=== PATIENT | female | born 1940 | race Caucasian/White ===

== ENCOUNTER 2016-08-10 11:58 | Emergency (ER) | payer OTHER ==
[~2016-08-10] VITALS: Ht 152.4 cm; Wt 75.4 kg
[~2016-08-10 11:58] MED LIST: ACET-1311 PO; ANT25 PO; ASPEC81 PO; ATOR10TA82 PO; DTRSR4 PO; FLUO40CA8 PO; GLUC10007 PO; HYDC25 PO; LSN25 PO; MULT-506 PO; NTRGSL/4 UT; PANT40TA PO; RANI300T2 PO; SYN75 PO; VLM2 PO
[2016-08-10 12:04] VITALS: TEMP 36.7
[2016-08-10 12:11] VITALS: O2SAT 93
[2016-08-10] MEDS ORDERED: SODIUM CHLORIDE 0.9% 1000ML 1,000 ML IV SCH (12:34)
[2016-08-10 12:40] VITALS: Ht 152.4 cm; Wt 75.4 kg
[2016-08-10 12:56] LABS: BASO % 0.4 %; BASO ABS # 0.03 K/uL (0-0.2); COMPLETE YES; HEMATOCRIT 37.6 % (37-47); IG% 0.1 %; LYMPH % 33.1 %; LYMPH ABS # 2.21 K/uL (1.2-3.4); MEAN CELL VOLUME 91.7 fL (80-100); MEAN CORPUSCULAR HGB CONC 33.8 g/dl (32-36); MEAN PLATELET VOLUME 9.9 fL (7.4-10.4); MONO % 8.2 %; NEUT % 55.2 %; PLATELET COUNT 223 K/uL (130-400); WHITE BLOOD COUNT 6.68 K/uL (4.8-10.8)
--- NOTE | 2016-08-10 12:56 | DIAGNOSTIC IMAGING REPORT ---
CHEST ONE VIEW PORTABLE CLINICAL HISTORY: Stroke mental status change COMPARISON STUDY: 01/16/2010 FINDINGS: The bones soft tissues and hemidiaphragms are normal. The cardiomediastinal silhouette is normal. The lungs are clear. The pulmonary vasculature is normal. IMPRESSION: Negative chest. Electronically signed by: Cain Simmons M.D. 08/10/2016 12:55 PM Dictated Date/Time: 08/10/2016 12:54 PM
[2016-08-10 13:10] LABS: INR 0.9 (0.9-1.1); PROTHROMBIN TIME (PATIENT) 10.1 SECONDS (9.0-12.0)
[2016-08-10 13:15] LABS: BUN/CREATININE RATIO 20.9 (10-20); CALCIUM 9.1 mg/dl (8.5-10.1); CREATININE 1.2 mg/dl (0.60-1.20); POTASSIUM 4.3 mmol/L (3.5-5.1)
[2016-08-10] MEDS ORDERED: ASPI81TA28 PO (13:34)
[2016-08-10] MEDS ORDERED: DULO60CA44 PO (13:36)
[2016-08-10] MEDS ORDERED: LEVO75TA5 PO (13:39)
[2016-08-10] MEDS ORDERED: MECL1TAB42 PO (13:40)
[2016-08-10] MEDS ORDERED: TOLT2TAB9 PO (13:44)
[2016-08-10] MEDS ORDERED: DIPH-437 PO (13:46)
[2016-08-10] MEDS ORDERED: AMLO2.5T PO (13:47)
--- NOTE | 2016-08-10 13:48 | DIAGNOSTIC IMAGING REPORT ---
CT SCAN OF THE BRAIN WITHOUT IV CONTRAST CLINICAL HISTORY: Dizziness. Right arm pain. COMPARISON STUDY: No priors. TECHNIQUE: Unenhanced axial CT scan of the brain is performed from the vertex to the skull base. CT DOSE: 537.48 mGy.cm FINDINGS: Brain parenchyma: There are age-related involutional changes noting mild/moderate patchy subcortical and periventricular microangiopathic change. There is no hemorrhage, mass effect, or evidence of acute territorial ischemia by CT criteria. Martinez-white matter is preserved. No extra-axial fluid collection is seen. Ventricles, sulci, cisterns: Prominent secondary to involutional change. Intracranial vasculature: There is atherosclerotic calcification of the cavernous carotid and vertebral arteries. Calvarium: Unremarkable. Sinuses and mastoids: The visualized paranasal sinuses are clear. The mastoid air cells are well pneumatized. Orbits: The bony orbits are grossly intact. IMPRESSION: There is no hemorrhage, mass effect, or evidence of acute territorial ischemia by CT criteria. Electronically signed by: Clyde Roldan M.D. 08/10/2016 1:47 PM Dictated Date/Time: 08/10/2016 1:44 PM
[2016-08-10] MEDS ORDERED: NYSTAT/TRIAM TOP (13:49)
[2016-08-10 16:04] VITALS: BP 133/97; PULSE 87; O2SAT 96
--- NOTE | 2016-08-10 18:24 | EMERGENCY ROOM VISIT NOTE ---
History Report prepared by Chema: Yvette Starr Under the Supervision of: Dr. Enrique Hussein M.D. First contact with patient: 12:18 Chief Complaint: CHEST PAIN Stated Complaint: PAIN IN CHEST AND RIGHT ARM Nursing Triage Summary: Pt reports substernal cp that began 1 hr MASTER BREWER, dull ache. Denies sob. "The other day I had an extremely dizzy spell. On the way here the pain went to my back." Took 2 excedrin. History of Present Illness The patient is a 76 year old female who presents to the Emergency Room for a cardiac assessment. The patient had surgery on her left rotator cuff about 10 years ago. She states that for the past 6 months she has been experiencing pain in her left shoulder that radiates down her left arm and into her elbow and wrist. She notes that the pain and tingling has been worse over the past couple of weeks. The patient states that she has also noticed her left arm to be weaker than usual over the past 2 weeks. Today she went to get milk out of the refrigerator. When she tried to lift the milk, her left arm seemed to be much weaker and she had to use her other arm to help lift the milk. The same thing happened when she tried to cook pickled meat a glass. It felt heavier than it should have felt. She also has pain in the arm when lifting. The patient became concerned today and called her PCP. Her PCP advised her to come to the ED for further evaluation of her symptoms. The patient also had chest pain this morning that started around 11am. She has had intermittent chest pains for the past 4-5 years that she gets multiple times per week. Nothing seems to exacerbate her chest pains, including exertion. She states that today's chest pain felt similar to her previous chest pain, except that it radiated into the right side of her neck. The patient describes her pain as mild and achy. It is located in the center of her chest and occasionally radiates into her back. She has seen her PCP for these symptoms in the past. states that the patient had a chemical stress test about two years ago. The patient denies any personal history of heart disease. She does not get short of breath or diaphoretic with her pain. She states that she typically takes a Valium and lays down, and her pain resolves. She occasionally gets headaches with her chest pains. When queried, the patient reports that for the past couple of months she has had some trouble walking. She will occasionally walk to one side and bump into the door frame. She states that sometimes she leans to her left, while other times she leans toward the right. She denies feeling weak in her legs. She denies any numbness in her face, arms, or legs. She has not mentioned this to her PCP, because she has not seen her PCP since she started experiencing these symptoms. Her main concern today was the weakness in the left arm. She is concerned that she may have a problem with her rotator cuff surgery. She had called her doctor today to determine whether or not she should see her or Dr. Faye of orthopedics and when she mentioned the chest pain she was told to immediately go to the emergency department. Source of History: patient, spouse/significant other Onset: MASTER BREWER Position: arm (left) Symptom Intensity: mild Quality: other (weakness) Timing: intermittent Modifying Factors (Worsening): other (lifting) Associated Symptoms: + neck pain, + chest pain, + back pain, + weakness, No diaphoresis, No SOB, No numbness Review of Systems See HPI for pertinent positives & negatives. A total of 10 systems reviewed and were otherwise negative. Past Medical & Surgical Medical Problems: (1) Hypertension (2) Hypothyroid (3) Laceration Family History Heart disease Social History Smoking Status: Never Smoker Smokeless Tobacco Use: No Marital Status: Housing Status: lives with significant other Occupation Status: unemployed Current/Historical Medications Scheduled Acetaminophen/Diphenhydramine (Tylenol Pm), 1 TAB PO HS Amlodipine Besylate (Norvasc), 2.5 MG PO QPM Aspirin (Aspirin Ec), 81 MG PO QPM Atorvastatin (Lipitor), 40 MG PO QPM Diazepam (Diazepam), 2 MG PO BID Duloxetine Hcl (Cymbalta), 60 MG PO QPM Fluoxetine (Prozac), 20 MG PO QAM Glucosamine Sulfate (Glucosamine), 1,000 MG PO DAILY Levothyroxine Sodium (Levothyroxine Sodium), 37.5 MCG PO QAM Lisinopril (Lisinopril), 2.5 MG PO DAILY Multivitamin (Multivitamin), 1 TAB PO DAILY Nitroglycerin (Nitrostat), 0.4 MG UT PRN Pantoprazole (Protonix), 40 MG PO DAILY Ranitidine (Zantac), 300 MG PO BID Tolterodine Tartrate (Tolterodine Tartrate), 2 MG PO BID [Nystat/Triam], 1 APPLN TOP DAILY Scheduled PRN Acetaminophen (Tylenol), 650 MG PO Q6 PRN for Pain Meclizine Hcl (Meclizine Hcl), 1 TAB PO TID PRN for Dizziness or Vertigo Allergies Coded Allergies: Gentamicin (Verified Allergy, Unknown, UNKNOWN, 08/10/16) Penicillins (Verified Allergy, Unknown, 08/10/16) Sulfa Drugs (Verified Allergy, Unknown, 08/10/16) Physical Exam Vital Signs Date Time Temp Pulse Resp B/P (MAP) Pulse Ox O2 Delivery O2 Flow Rate FiO2 08/10/16 16:04 87 18 133/97 96 Room Air 08/10/16 14:07 76 16 129/61 95 Room Air 08/10/16 12:27 86 23 129/61 93 08/10/16 12:25 83 08/10/16 12:11 93 Room Air 08/10/16 12:04 36.7 88 18 143/73 97 Room Air Physical Exam Constitutional: Vital signs reviewed. Eyes: Pupils are equal round reactive to light. Conjunctiva are noninjected. ENT: Pharynx is clear without erythema or exudate. Mucous membranes are moist. Neck supple without meningeal signs. Respiratory: Clear to auscultation bilaterally. Breath sounds are equal bilaterally. Cardiovascular: Regular rate and rhythm. No rubs or gallops. GI: Soft, nondistended and nontender. Bowel sounds are present. Musculoskeletal: No peripheral edema. No lower extremity tenderness. Integumentary: No cyanosis. Neurological: The patient is awake and alert. Cranial nerves II-XII are intact. Motor is 5 out of 5 all extremities. Sensation is intact to light touch all extremities. Normal speech. No pronator drift. No limb ataxia. Psychiatric: Normal affect. Medical Decision & Procedures ER Provider Diagnostic Interpretation: Radiology results as stated below per my review and the radiologist's interpretation: CT SCAN OF THE BRAIN WITHOUT IV CONTRAST CLINICAL HISTORY: Dizziness. Right arm pain. COMPARISON STUDY: No priors. TECHNIQUE: Unenhanced axial CT scan of the brain is performed from the vertex to the skull base. CT DOSE: 537.48 mGy.cm FINDINGS: Brain parenchyma: There are age-related involutional changes noting mild/moderate patchy subcortical and periventricular microangiopathic change. There is no hemorrhage, mass effect, or evidence of acute territorial ischemia by CT criteria. Martinez-white matter is preserved. No extra-axial fluid collection is seen. Ventricles, sulci, cisterns: Prominent secondary to involutional change. Intracranial vasculature: There is atherosclerotic calcification of the cavernous carotid and vertebral arteries. Calvarium: Unremarkable. Sinuses and mastoids: The visualized paranasal sinuses are clear. The mastoid air cells are well pneumatized. Orbits: The bony orbits are grossly intact. IMPRESSION: There is no hemorrhage, mass effect, or evidence of acute territorial ischemia by CT criteria. Electronically signed by: Clyde Roldan M.D. 08/10/2016 1:47 PM Dictated Date/Time: 08/10/2016 1:44 PM CHEST ONE VIEW PORTABLE CLINICAL HISTORY: Stroke mental status change COMPARISON STUDY: 01/16/2010 FINDINGS: The bones soft tissues and hemidiaphragms are normal. The cardiomediastinal silhouette is normal. The lungs are clear. The pulmonary vasculature is normal. IMPRESSION: Negative chest. Electronically signed by: Cain Simmons M.D. 08/10/2016 12:55 PM Dictated Date/Time: 08/10/2016 12:54 PM Laboratory Results 08/10/16 12:45 Red Blood Count 4.10, Mean Corpuscular Volume 91.7, Mean Corpuscular Hemoglobin 31.0, Mean Corpuscular Hemoglobin Concent 33.8, Mean Platelet Volume 9.9, Neutrophils (%) (Auto) 55.2, Lymphocytes (%) (Auto) 33.1, Monocytes (%) (Auto) 8.2, Eosinophils (%) (Auto) 3.0, Basophils (%) (Auto) 0.4, Neutrophils # (Auto) 3.68, Lymphocytes # (Auto) 2.21, Monocytes # (Auto) 0.55, Eosinophils # (Auto) 0.20, Basophils # (Auto) 0.03 08/10/16 12:45 Test 08/10/16 12:45 08/10/16 15:10 White Blood Count 6.68 K/uL (4.8-10.8) Red Blood Count 4.10 M/uL (4.2-5.4) Hemoglobin 12.7 g/dL (12.0-16.0) Hematocrit 37.6 % (37-47) Mean Corpuscular Volume 91.7 fL (80-100) Mean Corpuscular Hemoglobin 31.0 pg (25-34) Mean Corpuscular Hemoglobin Concent 33.8 g/dl (32-36) Platelet Count 223 K/uL (130-400) Mean Platelet Volume 9.9 fL (7.4-10.4) Neutrophils (%) (Auto) 55.2 % Lymphocytes (%) (Auto) 33.1 % Monocytes (%) (Auto) 8.2 % Eosinophils (%) (Auto) 3.0 % Basophils (%) (Auto) 0.4 % Neutrophils # (Auto) 3.68 K/uL (1.4-6.5) Lymphocytes # (Auto) 2.21 K/uL (1.2-3.4) Monocytes # (Auto) 0.55 K/uL (0.11-0.59) Eosinophils # (Auto) 0.20 K/uL (0-0.5) Basophils # (Auto) 0.03 K/uL (0-0.2) RDW Standard Deviation 44.2 fL (36.4-46.3) RDW Coefficient of Variation 13.1 % (11.5-14.5) Immature Granulocyte % (Auto) 0.1 % Immature Granulocyte # (Auto) 0.01 K/uL (0.00-0.02) Prothrombin Time 10.1 SECONDS (9.0-12.0) Prothromb Time International Ratio 0.9 (0.9-1.1) Activated Partial Thromboplast Time 26.3 SECONDS (21.0-31.0) Partial Thromboplastin Ratio 1.0 Anion Gap 6.0 mmol/L (3-11) Est Creatinine Clear Calc Drug Dose 36.2 ml/min Estimated GFR () 50.8 Estimated GFR (Non- 43.9 BUN/Creatinine Ratio 20.9 (10-20) Calcium Level 9.1 mg/dl (8.5-10.1) Bedside Troponin I < 0.030 ng/ml (0-0.045) Laboratory results as reviewed by me. Medications Administered Medications (Trade) Dose Ordered Sig/Stacie Route Start Time Stop Time Status Last Admin Dose Admin Sodium Chloride 1,000 ml @ 50 mls/hr Q20H IV 08/10/16 12:34 08/10/16 16:47 DC 08/10/16 12:34 50 MLS/HR ECG Indication: chest pain Rate (beats per minute): 51 Rhythm: normal sinus Findings: LBBB, no ectopy Comparison ECG Date: 12/27/2015 Change: no significant change ED Course 1218: The patient was evaluated in room B2. A complete history and physical exam was performed. 1234: NSS 1000 ml @ 50 mls/hr IV 1419: I reassessed the patient and she is not having any chest pain. I updated her on the results. 1537: I reassessed the patient again. She is not having any symptoms. Her repeat troponin is 0. I discussed the results and treatment plan with the patient. I answered all pertaining questions that she had. She expressed understanding and verbalized agreement. The patient will be discharged home and was encouraged to follow-up with her PCP. Medical Decision This is a 76-year-old female presents with left arm weakness and chest pain. Differential diagnosis includes GERD, pleurisy, NE, anxiety, stroke, cervical radiculopathy, neuropathy. I did perform a limited focused review of portions of the patient's old chart on the electronic medical record. The patient has had no recent pertinent visits to this hospital. Medication Reconciliation: I attest that I have personally reviewed the patient' s current medication list. Blood Pressure Screening: Patient was found to have an elevated blood pressure and was referred to their primary doctor for recheck and further treatment. I did evaluate the patient as noted above. The patient is presenting today with increasing weakness and pain to her left arm. It has been going on for months and worse over the past 2 weeks. She called her doctor and mentioned her chest pain and so they sent her here. She states that she has had this chest pain intermittently for the past 4-5 years. She states it is unchanged other than some radiation to her right neck. The chest pain has resolved and she had no associated symptoms with it. She has had no evaluation for her chest pain by her PCP including a dobutamine stress test 2 years ago. IV access was established. The patient was placed on a continuous monitoring tech. I did order and personally review the patient's 12-lead EKG and chest x-ray as described above. Her twelve-lead EKG is unchanged. There are no acute ischemic changes. I did order and review the patient's blood work as noted in the electronic medical record. Troponin 2 is negative. I did order a CT of the head. I did review the images myself as well as the radiology report as described above. There is no evidence of CVA. I did discuss the test results with the patient. She is currently asymptomatic. She has no focal neurologic deficit on my examination. I did recommend very close follow up with her doctor for further evaluation. She was given return instructions as outlined below and discharged in good condition. Impression Primary Impression: Chronic chest pain Additional Impressions: Left arm weakness Left arm pain Scribe Attestation The scribe's documentation has been prepared under my direct and personally reviewed by me in its entirety. I confirm that the note above accurately reflects all work, treatment, procedures, and medical decision making performed by me. Departure Information Dispostion Home / Self-Care Referrals Linda Lozano D.O. (PCP) Forms HOME CARE DOCUMENTATION FORM, IMPORTANT VISIT INFORMATION Patient Instructions My [facility] Additional Instructions You have been examined and treated today on an emergency basis only. This is not a substitute for, or an effort to provide, complete comprehensive medical care. It is impossible to recognize and treat all injuries or illnesses in a single emergency department visit. It is therefore important that you follow up closely with your physician. Call as soon as possible for an appointment. Talk to your doctor about further workup including possible outpatient cardiac stress testing. Return for worsening symptoms or if you develop fever, vomiting , difficulty breathing, profuse sweating, or any other concerning symptoms. Problem Qualifiers
== END 2016-08-10 16:09 | disposition home or self-care (01) ==
LOC: C.EDB 11:59
DX: G89.29 Other chronic pain (principal); R29.898 Other symptoms and signs involving the musculoskeletal system; M79.602 Pain in left arm; I10 Essential (primary) hypertension; E03.9 Hypothyroidism, unspecified; Z79.82 Long term (current) use of aspirin; Z79.899 Other long term (current) drug therapy

== ENCOUNTER 2024-01-03 13:02 | Inpatient (IN) ==
--- NOTE | 2024-01-03 13:18 | Emergency Department Note ---
Impression & Plan Chest pain, Heart disease ED Provider Note NAME: BONITA GONZALEZ AGE: 83 SEX: F : 1940 ARRIVES VIA: Ambulance INFORMANT: Patient ED PROVIDER(S): Fredy Rodriguez DO CHIEF COMPLAINT: chest pain HPI: Patient is a 83-year-old female with a past medical history of heart disease, diabetes, hyperlipidemia, and CAD who presents to the ER for chest pain. She notes she gets chest pain intermittently but this is way worse than what it typically is. Occurred around 11-12 o'clock. Resolved with nitro. Was brought in by EMS after being seen in the office by cardiology per the patient. No dysuria, urgency, or frequency. No arm pain or jaw pain. No shortness of breath. ADDITIONAL HISTORY OBTAINED: Per HPI Chronic Medical/Social Conditions Affecting Care: Per HPI PAST MEDICAL HISTORY:See Below PAST SURGICAL HISTORY:See Below FAMILY HISTORY:See Below SOCIAL HISTORY:See Below HOME MEDICATIONS:See Below ALLERGIES:See Below VITALS:See Below PHYSICAL EXAMINATION: GENERAL: Sitting up in bed, alert, well appearing, well nourished, no distress, non-toxic EYE EXAM: normal conjunctiva. PERRL and EOM's grossly intact. OROPHARYNX: no exudate, no erythema, lips, buccal mucosa, and tongue normal and mucous membranes are moist NECK: supple, no nuchal rigidity, no adenopathy, non-tender LUNGS: Clear to auscultation. Normal chest wall mechanics HEART: no murmurs, S1 normal and S2 normal ABDOMEN: abdomen soft, non-tender, normo-active bowel sounds, no masses, no rebound or guarding. UPPER EXTREMITIES: upper extremities are grossly normal. LOWER EXTREMITIES: No pitting edema. NEURO EXAM: Normal sensorium, cranial nerves II-XII grossly intact, normal speech, no gross weakness of arms, no gross weakness of legs. MEDICAL DECISION MAKING: Patient is a 83-year-old female who presents to the ER for the below stated complaint. IV was established and blood work was obtained. Labs show no significant leukocytosis or anemia. BMP with LFTs bilirubin was unremarkable. Troponin was initially negative. Lipase was normal. Patient was sent from cardiology's office. With her history and it resolving with nitro and given aspirin prior to arrival she was discussed with the hospitalist for further evaluation management and treatment and observation overnight. Consults/Care Managements Discussions: Per [facility] Triage Nursing notes reviewed. Limited review of prior medical records performed Vital Signs: reviewed and remarkable for no significant abnormalities Differential diagnosis: Cardiac ischemia, aortic dissection, pulmonary embolism, pneumothorax, pneumonia, pericarditis, myocarditis, esophageal rupture, GERD, cholecystitis, pancreatitis, musculoskeletal, as well as other pathologies. ER treatment provided: See below Diagnostics interpreted by me include EKG and cardiac monitoring as listed below: -Cardiac Monitoring: An order was placed for continuous cardiac monitoring. The monitor shows a rate of 70 with sinus rhythm. -ECG: Sinus rhythm rate 67 Left axis No PVCs QTc 456 -Laboratory studies:Interpreted by me as stated above in MDM and shown below. Imaging studies: Xrays: As interpreted by me: Portable AP upright 1 view of the chest shows no focal infiltrate CTs show: none Procedures:none Critical Care: None Past Med/Surg History Problem List (Updated 01/03/24 @ 18:12 by Fredy Rodriguez DO) Chest pain (Acute) Bilateral rotator cuff syndrome Status post right knee replacement Status post left partial knee replacement Heart disease (Acute) High blood pressure (Acute) Diabetes Kidney disease Hypothyroid (Chronic) Hypertension (Chronic) Chronic chest pain (Acute) Left arm pain (Acute) Left arm weakness (Acute) Family History Other Diabetes Social History Smoking Status: Never smoker Hx Alcohol Use: No Hx Substance Use: No Preferred Language: Persian [employer] Required: No Beliefs That Will Affect Care: None Current Living Situation: Family Other Information That Helps Us Care for You: No Feels Safe at Home: Yes Safety Concerns: Feels Safe At This Time Assistive Devices: Denture - Upper and Glasses Allergies Allergies Allergy/AdvReac Type Severity Reaction Status Date / Time gentamicin Allergy Unknown Rash Verified 01/03/24 16:27 Macrolide Antibiotics Allergy Unknown Rash Unverified 01/03/24 16:27 Penicillins Allergy Unknown Rash Verified 01/03/24 16:27 Sulfa (Sulfonamide Allergy Unknown Rash Verified 01/03/24 16:27 Antibiotics) telithromycin Allergy Unknown Rash - All Unverified 01/03/24 16:27 Ketolides Home Meds Home Medications Medication Instructions Recorded Confirmed aspirin 81 mg tablet,delayed 81 mg PO DAILY 11/06/20 01/03/24 release (Osei Low Dose Aspirin) atorvastatin 40 mg tablet 40 mg PO QPM 11/06/20 01/03/24 calcium 600 mg (as carbonate)-vit 1 tab PO BID 11/06/20 01/03/24 D3 20 mcg (800 unit) chewable tablet (Caltrate plus D) famotidine 20 mg tablet 20 mg PO BID 11/06/20 01/03/24 fluoxetine 20 mg capsule 40 mg PO QAM 11/06/20 01/03/24 glucosamine sulf dipot 1 cap PO DAILY 11/06/20 01/03/24 chlr,msm,chond 550 mg-C 30 mg-jaye 1 mg capsule (Glucosamine Chondroitin) levothyroxine 75 mcg tablet 37.5 mcg PO QAM 11/06/20 01/03/24 lisinopril 2.5 mg tablet 2.5 mg PO DAILY 11/06/20 01/03/24 nitroglycerin 0.4 mg sublingual 0.4 mg sublingual UD PRN Chest Pain 11/06/20 01/03/24 tablet (Nitrostat) pantoprazole 40 mg tablet,delayed 40 mg PO QAM 11/06/20 01/03/24 release dicyclomine 10 mg capsule 10 mg PO QID PRN Diarrhea and/or 01/03/24 01/03/24 ABD pain metoprolol succinate 25 mg 25 mg PO DAILY 01/03/24 01/03/24 tablet,extended release 24 hr mirtazapine 15 mg tablet 0 mg PO HS 01/03/24 01/03/24 Results & Data (ED) Vital Signs Vital Signs - 24 hr 01/03/24 13:16 01/03/24 13:26 01/03/24 14:00 Temperature 37.2 C Temperature Source Oral Pulse Rate 66 63 86 Pulse Rhythm Regular Respiratory Rate 18 16 Respiratory Effort / Characteristics Non-Labored Spontaneous Respiratory Depth Normal Blood Pressure 168/71 H Blood Pressure Mean 103 Pulse Oximetry 99 96 Oxygen Delivery Method Room Air Room Air Sepsis Recent Fever Within 48 Hours No Sepsis New/Unexplained Change in Mental Status No Sepsis Action Taken by Nursing No Action Required Laboratory Data 01/03/24 13:15 01/03/24 13:15 Lab Results 01/03/24 Range/Units 13:15 WBC 8.66 (4.8-10.8) K/ul RBC 4.50 (4.20-5.40) M/uL Hgb 13.7 (12.0-16.0) g/dl Hct 41.1 (37.0-47.0) % MCV 91.3 (80.0-100.0) fL MCH 30.4 (25.0-34.0) pg MCHC 33.3 (32.0-36.0) g/dL RDW Std Deviation 44.7 (36.4-46.3) fL RDW Coeff of Mildred 13.2 (11.5-14.5) % Plt Count 243 (130-400) K/uL MPV 10.4 (9.4-12.4) fL Immature Gran % (Auto) 0.2 % Neut % (Auto) 52.8 % Lymph % (Auto) 26.0 % [place]pine % (Auto) 8.9 % Eos % (Auto) 11.4 % Baso % (Auto) 0.7 % Neut # (Auto) 4.57 (1.40-6.50) K/uL Lymph # (Auto) 2.25 (1.20-3.40) K/uL Alpine # (Auto) 0.77 H (0.11-0.59) K/uL Eos # (Auto) 0.99 H (0.00-0.50) K/uL Baso # (Auto) 0.06 (0.00-0.20) K/uL Immature Gran # (Auto) 0.02 (0.01-0.20) K/uL Sodium 140 (136-145) mmol/L Potassium 4.5 (3.5-5.1) mmol/L Chloride 106 (98-107) mmol/L Carbon Dioxide 29 (21-32) mmol/L Anion Gap 5 (3-11) BUN 14 (6-23) mg/dl Creatinine 1.07 (0.6-1.2) mg/dl Est Cr Clr Drug Dosing 36.5 ml/min eGFR 51.54 BUN/Creatinine Ratio 13.1 (10-20) Glucose 102 H (70-99(Fasting)) mg/dl Calcium 9.4 (8.6-10.3) mg/dl Total Bilirubin 0.7 (0.2-1.0) mg/dl AST 30 (13-39) U/L ALT 21 (7-52) U/L Alkaline Phosphatase 124 H (34-104) U/L Troponin I High Sens 9.3 (0-14) pg/ml Total Protein 7.1 (6.0-8.3) gm/dl Albumin 3.9 (3.4-5.0) gm/dl Globulin 3.2 (2.5-4.0) gm/dl Albumin/Globulin Ratio 1.2 (0.9-2) Lipase 15 (11-82) U/L Administered Medications Discontinued Medications Acetaminophen (Acetaminophen 325 Mg Tab) 650 mg PO NOW STA Stop: 01/03/24 15:27 Last Admin: 01/03/24 15:58 Dose: 650 mg Documented By: ES Imaging Data Radiologist's Impression: Chest X-Ray 01/03/24 13:20 XR chest 1V portable CLINICAL HISTORY: Chest pain, nonspecific COMPARISON STUDY: Chest radiograph November 06, 2020. FINDINGS: Moderate elevation of the right hemidiaphragm has mildly increased. Lungs are clear. There is no pneumothorax or pleural effusion. Cardiac size is normal. Mediastinal contours are normal. There is no evidence for pulmonary edema. IMPRESSION: No acute cardiopulmonary findings. ACT 112: Negative or not required by law. Electronically signed by: Cristino Mayes M.D. 01/03/2024 1:47 PM Discharge Plan Visit Data Chief Complaint: Chest Pain Stated Complaint: CHEST PAIN ED Provider: Fredy Rodriguez Discharge Problem: Chest pain, Heart disease Patient Disposition: Admitted As Inpatient Discharge Instructions Interventions: ED Discharge Assessment Last Done: 01/03/24 16:19 Discharge Problem: Chest pain Qualifiers: Chest pain type: unspecified Qualified Code(s): R07.9 - Chest pain, unspecified
[2024-01-03 13:37] LABS: Basophils # (auto) 0.06 K/uL (0.00-0.20); Basophils % (auto) 0.7 %; Eosinophils # (auto) 0.99 K/uL (0.00-0.50); Eosinophils % (auto) 11.4 %; Hematocrit (blood only) 41.1 % (37.0-47.0); Hemoglobin 13.7 g/dl (12.0-16.0); Immature Granulocytes # (auto) 0.02 K/uL (0.01-0.20); Immature Granulocytes % (auto) 0.2 %; Lymphocytes # (auto) 2.25 K/uL (1.20-3.40); Mean Corpuscular Hemoglobin 30.4 pg (25.0-34.0); Mean Corpuscular Hgb Conc 33.3 g/dL (32.0-36.0); Mean Corpuscular Volume 91.3 fL (80.0-100.0); Mean Platelet Volume 10.4 fL (9.4-12.4); Monocytes # (auto) 0.77 K/uL (0.11-0.59); Monocytes % (auto) 8.9 %; Neutrophils # (auto) 4.57 K/uL (1.40-6.50); Neutrophils % (auto) 52.8 %; Platelet Count 243 K/uL (130-400); RDW Coefficient of Variation 13.2 % (11.5-14.5); RDW Standard Deviation 44.7 fL (36.4-46.3); White Blood Count 8.66 K/ul (4.8-10.8)
--- NOTE | 2024-01-03 13:49 | XRay Report ---
XR chest 1V portable CLINICAL HISTORY: Chest pain, nonspecific COMPARISON STUDY: Chest radiograph November 06, 2020. FINDINGS: Moderate elevation of the right hemidiaphragm has mildly increased. Lungs are clear. There is no pneumothorax or pleural effusion. Cardiac size is normal. Mediastinal contours are normal. Ther e is no evidence for pulmonary edema. IMPRESSION: No acute cardiopulmonary findings. ACT 112: Negative or not required by law. Electronically signed by: Cristino Mayes M.D. 01/03/2024 1:47 PM
[2024-01-03 13:55] LABS: Albumin Globulin Ratio 1.2 (0.9-2); Albumin Level 3.9 gm/dl (3.4-5.0); BUN Creatinine Ratio 13.1 (10-20); Bilirubin,Total 0.7 mg/dl (0.2-1.0); Calcium 9.4 mg/dl (8.6-10.3); Creatinine Clr Calc Pharmacy 36.5 ml/min; Globulin 3.2 gm/dl (2.5-4.0); Potassium 4.5 mmol/L (3.5-5.1); Total Protein 7.1 gm/dl (6.0-8.3)
[2024-01-03 14:01] LABS: Troponin I High Sensitivity 9.3 pg/ml (0-14)
[2024-01-03] MEDS: ACETAMINOPHEN 325 MG TAB PO STA (15:58)
[2024-01-03] MEDS ORDERED: ALUMINUM/MAGNESIUM/SIMETH (MAALOX MAX) 30 ML UDC PO PRN (16:37)
--- NOTE | 2024-01-03 16:45 | History & Physical Report ---
Date of Service January 03, 2024 Assessment & Plan (1) Heart disease: (2) High blood pressure: (3) Diabetes: (4) Hypothyroid: (5) Chronic chest pain: (6) Hypertension: Plan Assessment and plan: Chest painnow resolved Rule out ACS: Initial troponin negative, EKG without acute changes Received nitroglycerin/aspirin and route with improvement Echo on 09/15/2022 showed EF of 55-60%, grade 1 diastolic dysfunction Cardiology consulted, recheck echo, n.p.o. after midnight for stress test Trend troponins, telemetry monitoring Hx hypothyroidism: Continue levothyroxine Hx DM2: -Currently not on any medications, recheck A1c, sugar within normal limits Hx CAD/HTN/HLD/TIA: Continue lisinopril/metoprolol Patient reports PCP recently stopped statin, hold for now, lipid panel ordered for a.m. Hx depression: Continue fluoxetine Hx GERD: Continue pantoprazole/Pepcid A total of 60 minutes was spent on chart review/facilitating plan of care/discussion with consultants/reviewing diagnostic data Patient is a DNR/DNI DVT prophylaxis: Lovenox History of Present Illness Chief Complaint: Chest pain Primary Care Provider: Linda Lozano DO The patient is a 83-year-old female with a past medical history of HLD, CAD, HTN, DM2, hypothyroidism, intermittent chest pain chronic on nitroglycerin, GERD who presents to the ED on 01/03/2024 with complaints of chest pain across the entirety of her chest. Patient reports going to the medicaid service coordinator office today and developing some chest pain this morning that was worse than her normal chest pain that she takes her nitroglycerin for. She denies any associated shortness of breath or nausea/vomiting. She denies any recent respiratory illness. Denies any abdominal pain. She was not hypoxic on arrival to the ER. On exam, she is now chest pain-free. She received aspirin and nitroglycerin en route to the hospital which helped relieve her pain. The patient was prescribed atorvastatin and reports her PCP recently took her off of it. Her chest x-ray was negative Her EKG was without acute changes And showed normal sinus rhythm with anterior infarctage undetermined Initial troponin was negative Labs are fairly unremarkable. The patient will be admitted for further workup and rule out ACS Allergies Allergy/AdvReac Type Severity Reaction Status Date / Time gentamicin Allergy Unknown Rash Verified 01/03/24 16:27 Macrolide Antibiotics Allergy Unknown Rash Unverified 01/03/24 16:27 Penicillins Allergy Unknown Rash Verified 01/03/24 16:27 Sulfa (Sulfonamide Allergy Unknown Rash Verified 01/03/24 16:27 Antibiotics) telithromycin Allergy Unknown Rash - All Unverified 01/03/24 16:27 Ketolides Home Medications Medication Instructions Recorded Confirmed Type aspirin 81 mg tablet,delayed 81 mg PO DAILY 11/06/20 01/03/24 History release (Soei Low Dose Aspirin) atorvastatin 40 mg tablet 40 mg PO QPM 11/06/20 01/03/24 History calcium 600 mg (as carbonate)-vit 1 tab PO BID 11/06/20 01/03/24 History D3 20 mcg (800 unit) chewable tablet (Caltrate plus D) famotidine 20 mg tablet 20 mg PO BID 11/06/20 01/03/24 History fluoxetine 20 mg capsule 40 mg PO QAM 11/06/20 01/03/24 History glucosamine sulf dipot 1 cap PO DAILY 11/06/20 01/03/24 History chlr,msm,chond 550 mg-C 30 mg-jaye 1 mg capsule (Glucosamine Chondroitin) levothyroxine 75 mcg tablet 37.5 mcg PO QAM 11/06/20 01/03/24 History lisinopril 2.5 mg tablet 2.5 mg PO DAILY 11/06/20 01/03/24 History nitroglycerin 0.4 mg sublingual 0.4 mg sublingual UD PRN Chest Pain 11/06/20 01/03/24 History tablet (Nitrostat) pantoprazole 40 mg tablet,delayed 40 mg PO QAM 11/06/20 01/03/24 History release dicyclomine 10 mg capsule 10 mg PO QID PRN Diarrhea and/or 01/03/24 01/03/24 History ABD pain metoprolol succinate 25 mg 25 mg PO DAILY 01/03/24 01/03/24 History tablet,extended release 24 hr mirtazapine 15 mg tablet 0 mg PO HS 01/03/24 01/03/24 History Past Med/Surg History Problem List Bilateral rotator cuff syndrome Status post right knee replacement Status post left partial knee replacement Heart disease High blood pressure (Acute) Diabetes Kidney disease Hypothyroid (Chronic) Hypertension (Chronic) Chronic chest pain (Acute) Left arm pain (Acute) Left arm weakness (Acute) Family History Other Diabetes Social History Smoking Status: Never smoker Preferred Language: Gambian Feels Safe at Home: Yes Review of Systems Review of Systems: All systems reviewed & are unremarkable except as noted in HPI & below Physical Exam Constitutional: WD/WN, vitals as above well developed Eyes: PERRL, conjunctivae normal, anicteric sclerae ENMT: external ear and nose normal, oropharynx normal Neck: trachea midline, no thyromegaly Respiratory: normal respiratory effort, lungs clear to auscultation Cardiovascular: RRR, no murmur, no edema (+2 nonpitting lower extremity edema) Gastrointestinal (Abdomen): normal bowel sounds, soft, nontender, no hepatosplenomegaly Musculoskeletal: no cyanosis or clubbing, extremities motor strength 5/5 Skin: no rashes, warm and dry Neurologic: PERRL, EOMI, accommodation nl, no face palsy, no dysarthria Genitourinary: no vaginal lesions, no adnexal mass Lymphatic: no cervical or axillary lymphadenopathy Results & Data Results & Data Vital Signs (Past 12 Hours) Vital Signs Temp Pulse Pulse Resp BP Pulse Ox O2 Del Method 01/03/24 16:19 67 20 157/64 H 98 Room Air 01/03/24 15:41 67 20 98 Room Air 01/03/24 14:00 86 16 96 Room Air 01/03/24 13:26 63 01/03/24 13:16 37.2 C 66 18 168/71 H 99 Room Air Diagnostic Findings Laboratory Results WBC 8.66 K/ul (4.8-10.8) 01/03/24 13:15 RBC 4.50 M/uL (4.20-5.40) 01/03/24 13:15 Hgb 13.7 g/dl (12.0-16.0) 01/03/24 13:15 Hct 41.1 % (37.0-47.0) 01/03/24 13:15 MCV 91.3 fL (80.0-100.0) 01/03/24 13:15 MCH 30.4 pg (25.0-34.0) 01/03/24 13:15 MCHC 33.3 g/dL (32.0-36.0) 01/03/24 13:15 RDW Std Deviation 44.7 fL (36.4-46.3) 01/03/24 13:15 RDW Coeff of Mildred 13.2 % (11.5-14.5) 01/03/24 13:15 Plt Count 243 K/uL (130-400) 01/03/24 13:15 MPV 10.4 fL (9.4-12.4) 01/03/24 13:15 Immature Gran % (Auto) 0.2 % 01/03/24 13:15 Neut % (Auto) 52.8 % 01/03/24 13:15 Lymph % (Auto) 26.0 % 01/03/24 13:15 [place] % (Auto) 8.9 % 01/03/24 13:15 Eos % (Auto) 11.4 % 01/03/24 13:15 Baso % (Auto) 0.7 % 01/03/24 13:15 Neut # (Auto) 4.57 K/uL (1.40-6.50) 01/03/24 13:15 Lymph # (Auto) 2.25 K/uL (1.20-3.40) 01/03/24 13:15 [place] # (Auto) 0.77 K/uL (0.11-0.59) H 01/03/24 13:15 Eos # (Auto) 0.99 K/uL (0.00-0.50) H 01/03/24 13:15 Baso # (Auto) 0.06 K/uL (0.00-0.20) 01/03/24 13:15 Immature Gran # (Auto) 0.02 K/uL (0.01-0.20) 01/03/24 13:15 Sodium 140 mmol/L (136-145) 01/03/24 13:15 Potassium 4.5 mmol/L (3.5-5.1) 01/03/24 13:15 Chloride 106 mmol/L (98-107) 01/03/24 13:15 Carbon Dioxide 29 mmol/L (21-32) 01/03/24 13:15 Anion Gap 5 (3-11) 01/03/24 13:15 BUN 14 mg/dl (6-23) 01/03/24 13:15 Creatinine 1.07 mg/dl (0.6-1.2) 01/03/24 13:15 Est Cr Clr Drug Dosing 36.5 ml/min 01/03/24 13:15 eGFR 51.54 01/03/24 13:15 BUN/Creatinine Ratio 13.1 (10-20) 01/03/24 13:15 Glucose 102 mg/dl (70-99(Fasting)) H 01/03/24 13:15 Calcium 9.4 mg/dl (8.6-10.3) 01/03/24 13:15 Total Bilirubin 0.7 mg/dl (0.2-1.0) 01/03/24 13:15 AST 30 U/L (13-39) 01/03/24 13:15 ALT 21 U/L (7-52) 01/03/24 13:15 Alkaline Phosphatase 124 U/L (34-104) H 01/03/24 13:15 Troponin I High Sens 9.3 pg/ml (0-14) 01/03/24 13:15 Total Protein 7.1 gm/dl (6.0-8.3) 01/03/24 13:15 Albumin 3.9 gm/dl (3.4-5.0) 01/03/24 13:15 Globulin 3.2 gm/dl (2.5-4.0) 01/03/24 13:15 Albumin/Globulin Ratio 1.2 (0.9-2) 01/03/24 13:15 Lipase 15 U/L (11-82) 01/03/24 13:15 Impressions Chest X-Ray 01/03/24 13:20 XR chest 1V portable CLINICAL HISTORY: Chest pain, nonspecific COMPARISON STUDY: Chest radiograph November 06, 2020. FINDINGS: Moderate elevation of the right hemidiaphragm has mildly increased. Lungs are clear. There is no pneumothorax or pleural effusion. Cardiac size is normal. Mediastinal contours are normal. There is no evidence for pulmonary edema. IMPRESSION: No acute cardiopulmonary findings. ACT 112: Negative or not required by law. Electronically signed by: Cristino Mayes M.D. 01/03/2024 1:47 PM Supervising Physician Co-Signing Physician Notes Patient is an 83-year-old female with history of hypertension, hyperlipidemia, coronary artery disease, hypothyroidism, GERD and other medical problems presents with history of ongoing intermittent chest pain for many days. She describes chest pain to be retrosternal, pressure/heartburn like sensation which started at rest. She was evaluated by her medicaid service coordinator outpatient and was recommended to go to ED for further evaluation. Currently chest pain-free after receiving nitroglycerin and aspirin. Patient had some headache which improved with Tylenol as well. Denies any nausea, vomiting, shortness of breath, dizziness, cough, fever, chills. She was recently discontinued on Lipitor by her PCP due to unclear reason. Please review HPI for complete details of presentation. I personally reviewed blood work and imaging studies and EKG. Initial troponin negative. Patient received aspirin, nitroglycerin en route to the hospital. Physical Exam: Vitals signs as noted above General Appearance: Obese, no apparent distress Head: normocephalic, Atraumatic Eyes: normal inspection, EOMI Neck: supple, Trachea midline Respiratory/Chest: Decreased breath sounds, CTA, No accessory muscle use Cardiovascular: S1, S2, No murmur Abdomen/GI:Soft, Non tender, Bowel sounds present Extremities/Musculoskeletal:normal inspection, no edema Neurologic/Psych:AAOX3, grossly no focal neurological deficits Skin: normal color, warm Chest pain rule out ACS DD: GERD Initial troponin negative. Will check resting echo, lipid panel, A1c, trend troponins, check TSH N.p.o. after midnight for stress test tomorrow Cardiology consulted Continue aspirin, Lipitor Nitroglycerin as needed On Protonix, Pepcid for GERD. Added Maalox as needed If stress test negative, patient would benefit from getting EGD eventually I personally interviewed and examined at bedside. Patient's care is coordinated with Myra Lynch PA-C. I have reviewed the advanced practitioner's documentation, and I agree with plan of care. Please refer to the documentation above for details of patient's presentation and for discussion of other issues. I spent a total [id number] coordinating, documenting, and providing care for this patient excluding time spent in the performance of separately billed services. (2) High blood pressure Hypertension type: unspecified Qualified Code(s): I10 - Essential (primary) hypertension
[2024-01-03] MEDS ORDERED: ACETAMINOPHEN 325 MG TAB PO PRN (17:01)
[2024-01-03 17:22] VITALS: RESP 18
[2024-01-03] MEDS: CALCIUM 600MG + VIT D 400 IU TAB PO SCH (18:13)
[2024-01-03] MEDS: FAMOTIDINE 20 MG TAB PO SCH (20:24)
[2024-01-03] MEDS: MIRTAZAPINE TAB 15 MG TAB PO SCH (20:25)
--- NOTE | 2024-01-03 21:24 | Electrocardiogram Report ---
Test Reason : Blood Pressure : */* mmHG Vent. Rate : 67 BPM Atrial Rate : 67 BPM P-R Int : 184 ms QRS Dur : 120 ms QT Int : 432 ms P-R-T Axes : 41 -40 70 degrees QTcB Int : 456 ms Normal sinus rhythm Left axis deviation Minimal voltage criteria for LVH, may be normal variant Left bundle branch block Abnormal ECG When compared with ECG of 06-Nov-2020 16:48, No significant change Confirmed by Gerber Patton ([id number]) on 01/03/2024 9:24:43 PM Referred By: Confirmed By: Gerber Patton
--- OUTSIDE RECORDS SUMMARY | 2024-01-03 23:25 | External Medical Summary | Summary of Care ---
Author Name Unknown Organization [facility] Address [address] [place] [address] Phone [phone] Care Team Providers Care Oceanography Teacher Name Role Phone Linda Lozano DO Primary Care Provider Encounter Details Date Type Department Care Team (Late st Contact Info) Description 12/09/2023 Telephone [facility] [address] [place] [address] Linda Lozano DO [address] [place] [address] Allergies Active Allergy Reactions Criticality Noted Date Comments Gentamicin Sulfate 06/12/2004 eyes sore/red Penicillins 11/26/1999 Sulfa Antibiotics 11/26/1999 documented as of this encounter (statuses as of 12/10/2023) Medications Medication Sig Dispensed Refills Start Date End Date Status ASPIRIN 81 MG PO TABSIndications:HTN, goal below 130/80 Take 1 Tablet by mouth in the morning. 0 0 06/27/2009 Active GLUCOSAMINE CHONDROITIN COMPLX 500-400 MG PO TABS Take 1 Tablet by mouth in the morning. 30 0 06/27/2009 Active CALTRATE 600+D PLUS 600-400 MG-UNIT PO TABSIndications:Gene ralized osteoarthritis 1 TABLET TWICE DAILY WITH FOOD 06/26/2010 Active LORATADINE 10 MG PO TABSIndications:Marlo rgic rhinitis One pill by mouth once a day as needed for allergies 90 Tab 3 07/03/2011 Active [place]-3 Krill Oil 500 MG CAPS Take 1 Cap by mouth daily. 10/04/2013 Active ONETOUCH CARLOS EDISONMELVA 33G MISCIndications:Type 2 diabetes mellitus with hemoglobin A1c goal of less than 7.0% ([facility]) USE UP TO FOUR TIMES A DAY DIRECTED E11.9 200 Each 2 07/07/2018 Active OneTouch Ultra In Vitro Strip (Glucose Blood)Indications:DM type 2, goal: symptom mgmt ([facility]) USE STRIP TO CHECK GLUCOSE 1 time DAILY. Dx Code: E11.9 100 Strip 3 03/21/2020 Active Nitroglycerin 0.4 MG Sublingual Tablet Sublingual (Nitrostat)Indicatio ns:Angina pectoris ([facility]) one tab under tongue as needed for chest pain maximum 3 doses 25 Tab 3 11/08/2020 Active Probiotic Acidophilus BioBeads Oral Capsule Take by mouth 1 Capsule in the morning. Active Famotidine 20 MG Oral Tablet (Pepcid)Indications: GERD (gastroesophageal reflux disease) Take by mouth 1 Tablet in the morning AND 1 Tablet before bedtime. 180 Tablet 1 07/01/2021 Active Mirtazapine 15 MG Oral Tablet (Remeron) Take 1 Tablet by mouth at bedtime. 90 Tablet 3 11/09/2022 Active Atorvastatin Calcium 40 MG Oral Tablet (Lipitor)Indications :Dyslipidemia, goal LDL below 100 Take 1 Tablet by mouth daily. 90 Tablet 3 03/08/2023 Active Metoprolol Succinate ER 25 MG Oral Tablet Extended Release 24 Hour (Toprol XL)Indications:SVT (supraventricular tachycardia) ([facility]) Take 1 Tablet by mouth in the morning. 90 Tablet 3 05/14/2023 Active FLUoxetine HCl 20 MG Oral Capsule (PROzac)Indications: Depression with anxiety Take 2 Capsules by mouth in the morning. 180 Capsule 3 10/20/2023 Active Levothyroxine Sodium 75 MCG Oral Tablet (Levoxyl)Indications :Acquired hypothyroidism TAKE 1/2 (ONE-HALF) TABLET BY MOUTH IN THE MORNING AT LEAST 30 MINUTES PRIOR TO BREAKFAST OR OTHER MEDICATIONS 45 Tablet 10/20/2023 Active Pantoprazole Sodium 40 MG Oral Tablet Delayed Release (Protonix)Indication s:Gastroesophageal reflux disease, unspecified whether esophagitis present TAKE 1 TABLET BY MOUTH ONCE DAILY IN THE MORNING 90 Tablet 3 10/20/2023 Active documented as of this encounter (statuses as of 12/10/2023) Active Problems Problem Noted Date Diagnosed Date Type 2 diabetes mellitus wit h stage 3a chronic kidney disease, without long-term current use of insulin 05/31/2023 Hypertensive kidney disease with stage 3a chronic kidney disease 05/31/2023 SVT (supraventricular tachycardia) 05/31/2023 Hypothyroidism due to acquired atrophy of thyroi d 05/31/2023 Major depressive disorder, single episode, mild 06/03/2022 Diabetes mellitus with stage 3 chronic kidney di sease 12/06/2017 Hypertensive kidney disease with chronic kidney disease stage III 12/06/2017 Raynaud's disease 12/31/2014 DM type 2, goal: symptom mgmt 06/11/2014 HTN, goal below 140/90 02/20/2014 Kidney disease, chronic, stage III (GFR 30-59 ml /min) 02/20/2014 LBBB (left bundle branch block) 01/02/2014 Hypothyroidism 01/28/2007 Internal hemorrhoids 09/17/2004 Major depressive disorder 03/06/2000 Overview: ICD-10 update of inactive term Mixed Dyslipidemia documented as of this encounter (statuses as of 12/10/2023) Resolved Problems Problem Noted Date Diagnosed Date Resolved Date Angina pectoris 06/03/2022 05/31/2023 Encounter for examination fo r normal comparison and control in clinical research program 10/04/2014 10/11/2014 Overview: Diagnosis changed due to Research Module. Go to Snapshot for study details. Encounter for examination fo r normal comparison and control in clinical research program 10/04/2014 10/09/2014 Overview: Diagnosis changed due to Research Module. Go to Snapshot for study details. MARTINEZ (headache) 06/25/2014 06/04/2017 Chest pain 01/02/2014 12/04/2016 DM type 2, age 6-12 yrs, goal A1C below 8 07/31/2013 06/11/2014 Type 2 diabetes mellitus wit h hemoglobin A1c goal of less than 7.0% 04/24/2013 07/31/2013 Overview: ICD-10 update of inactive term Pre-diabetes 01/16/2013 04/24/2013 Angina pectoris 12/27/2009 06/04/2017 Vertigo 08/08/2009 12/04/2016 Obesity, Class II, BMI 35-39 .9, isolated (see actual BMI) 07/29/2009 08/17/2018 Overview: Per Obesity Protocol, #19 Dyslipidemia, goal LDL below 100 01/28/2009 06/27/2009 Overview: Per Lipid Taxonomy. Allergic rhinitis 10/16/2008 12/04/2016 CEREBROVASCULAR DZ, POST-STROKE 09/13/2008 06/04/2017 Overview: Modified per CVA protocol #8. ct 3/05-- old lacunar infarct CEREBROVASCULAR DZ, POST-STROKE 05/29/2008 09/13/2008 Overview: Modified per CVA protocol #8. ct 3/05-- old lacunar infarct SPASTIC COLON 11/22/2007 12/04/2016 Diarrhea 11/22/2007 12/04/2016 HYPERGLYCEMIA 05/23/2007 12/04/2016 COMPLEX CYST OF THYROID 01/28/200705/17 Generalized osteoarthritis 01/28/2007 1 Fever and other physiologic disturbances of temperature regulation 01/04/2007 01/28/2007 Overview: ICD-10 update of inactive term Diverticulosis of colon 09/17/200405/17 ADVANCE DIRECTIVE INFORMATION 08/14/2004 12/04/2016 Overview: No, Advance Directive brochure given to patient at prior appointment. Cerebrovascular event, ill-d efined, within last 8 weeks 05/20/2004 05/31/2008 Overview: Modified per CVA protocol #8 HTN, goal below 140/90 12/05/200306/27 Vasculitis 12/06/2001 12/05/2003 ANGINA PECTORIS NEC-NOS 03/06/200011/16 Heartburn 03/06/2000 01/28/2007 HYPERLIPIDEMIA NEC-NOS 03/06/200001/28 Overview: Per Lipid Taxonomy. Menopause 03/06/2000 12/04/2016 EXT ASTHMA W-O STAT ASTH HTN, goal below 130/80 02/20 Cerebrovascular event, ill-d efined, within last 8 weeks 06/04/2017 Overview: ct 04/19-- old lacunar infarct documented as of this encounter (statuses as of 12/10/2023) Immunizations Name Administration Dates Next Due COVID-19 mRNA, LNP-s, No Pre serve, 2-Dose Series (Moderna) 05/15/2020,04/10/2020 Pneumococcal Conjugate Vacc, 13 Valent (Prevnar) 07/11/2015 Pneumococcal Conjugate Vacci ne, 7 Valent 12/05/2003 Pneumococcal Polysaccharide PPV23 (Pneumovax) 06/27/2009 Season Influenza, Quad, PF, Adjuvanted, 65+ Yrs, IM (FLUAD) 11/11/2022,10/19/2019 Seasonal Influenza Vac., MDV , IM, 0.5 mL (Fluzone) 10/18/2014,11/06/2013,12/23/2012,11/18,11/07/2010,12/02/2009,11/22/2008 ,02/01/2008,12/03/2006,12/18/2005,11/04/2005,11/27/2004,12/05/2003 Seasonal Influenza, High Dos e, Trivalent, PF, IM (Fluzone HD) 12/08/2023 Seasonal Influenza, PF, 6 M & above, IM , (FluLaval or Fluzone) 11/10/2018,11/19/2017 Seasonal Influenza, Quadriva lent Hd (Fluzone Hd) 04/02/2022 Seasonal Influenza, Quadriva lent, No Preserve, IM 10/28/2016,11/11/2015 TD - Tetanus/Diptheria (ADULT) 06/12/2004 TDAP (age 10 and older)(Boostrix) 12/12/2014 Zoster Vaccine Recombinant (Shingrix) 02/27/2023 ,11/11/2022 documented as of this encounter Social History Tobacco Use Types Packs/Day Years Used Date Smoking Tobacco: Never Smokeless Tobacco: Never Alcohol Use Standard Drinks/Week Comments No 0 (1 standard drink = 0.6 oz pur e alcohol) rare PHQ-2 Answer Date Recorded PHQ Adult Total Score 12 01/01/2021 Sex and Gender Information Value Date Recorded Sex Assigned at Female 08/16/2018 10:45 AM EDT Gender Identity Female 08/16/2018 10:45 AM EDT Sexual Orientation Straight 12/08/2023 9: 57 AM EDT Job Start Date Occupation Industry Not on file Not on file Not on file documented as of this encounter Miscellaneous Notes * Telephone Encounter - Manuela Alvarez LPN - 12/10/2023 2:44 PM EDT Spoke to patient and verbalized understanding. She did say she is having more heartburn and indigestion she is unsure of what medications she is taking for this prior. She said she will reach out again if this is persistent. She is adding metamucil to help with her diarrhea and she did not get her CXR due to you not hearing anything when she was in. * Telephone Encounter - Linda Lozano DO - 12/09/2023 2:10 PM EDT Results for orders placed or performed in visit on 12/08/23 CBC Result Value Ref Range WBC 9.16 4.00 - 10.80 K/uL RBC 4.53 3.85 - 5.15 M/uL HGB 14.0 12.0 - 15.3 g/dL HCT 44.4 36.0 - 45.2 % MCV 98.0 81.5 - 97.5 fL MCH 30.9 27.0 - 34.0 pg MCHC 31.5 32.0 - 36.0 g/dL RDW 13.2 11.5 - 15.5 % PLT 263 140 - 400 K/uL MPV 11.5 6.6 - 11.1 fL nRBCs 0 <=0 /100 WBCs IRON SCREEN, INCLUDING TIBC Result Value Ref Range Iron 96 33 - 151 ug/dL Iron Binding Capacity 258 250 - 425 ug/dL Transferrin Saturation Percent 37 15 - 55 % TSH WITH FREE T4 IF INDICATED Result Value Ref Range TSH 2.56 0.27 - 4.20 uIU/mL HEMOGLOBIN A1C Result Value Ref Range Hemoglobin A1C 6.1 (H) 4.0 - 5.6 % Estimated Average Glucose 128 (H) <126 mg/dL *Note: Due to a large number of results and/or encounters for the requested time period, some results have not been displayed. A complete set of results can be found in Results Review. Her blood counts and thyroid along with diabetes is all stable. No changes need to be made documented in this encounter Plan of Treatment Upcoming Encounters Date Type Department Care Team (Late st Contact Info) Description 01/03/2024 2:30 PM EST Office Visit Cardiology, [facility] [address] [facility] [place] [address] Janis Castro PA-C [address] [place] [address] Dhiraj [place] [id number] 06/21/2024 11:30 AM EDT Office Visit [facility] [address] [place] [phone] Linda Lozano DO [address] [place] [address] 09/29/2024 2:00 PM EDT Office Visit Nephrology, [facility] [address] [place] [address] Shawna Castro MD [address] [place] [address] Health Maintenance Due Date Last Done Comments DXA Scan 07/20/2018 07/21/2011, 06/2011, 09/05/2007, Additional history exists Adult Wellness Visit 08/30/2020 08/31/2019 COVID-19 Vaccine (2023-2 5 season) 2023 05/15/2020, 04/10/2020 Depression Monitoring 10/04/2024 10/05/2023 TSH 12/07/2024 12/08/2023, 06/0 06/2022, 10/13/2020, Additional history exists Zoster Vaccines Completed 02/27/2023, 11/11/2022 Influenza Vaccine (FLU shot) Completed , 11/11/2022, 04/02/2022, Additional history exists documented as of this encounter Medical Devices Implanted Type Area Prefitter Device Identifier Shelf Expiration Date Model / Serial / Lot Lens Intraoc 23.0 - [id number] - [id number] Implanted:Qty: 1 on 01/14/2021 by Samy Warner MD at OR [facility] Right: Eye [employer] 09/14/2025 [id number] / [id number] / [id number] Lens Intraoc 23.0 - [id number] - [id number] Implanted:Qty: 1 on 01/28/2021 by Samy Warner MD at OR [facility] Left: Eye [employer] 11/14/2025 [id number] / [id number] / Percutaneous Extension 2201bun - [id number] - [id number] Implanted:Qty: 1 on 11/27/2022 by Maximus De La Rosa MD at OR [facility] N/A: Back [employer] 03/03/2025 [id number] / [id number] / Kit Tined Lead - [id number] - [id number] Implanted:Qty: 1 on 11/27/2022 by Maximus De La Rosa MD at OR [facility] N/A: Back [employer] 06/08/2025 1201 / [id number] / Neurostim Non Rechargeable - [id number] - [id number] Implanted:Qty: 1 on 12/04/2022 by Maximus De La Rosa MD at OR [facility] Right: Back [employer] 04/14/2023 4101 / [id number] / documented as of this encounter Advance Directives Documents on File Type Date Recorded 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 Question Answer Comments Discussion of Advance Directives occurred with: Patient * Full Code Date Activated Date Inactivated Comments 11/27/2022 1:03 PM 11/27/2022 6:18 PM This order reflects the patients wishes and were consensually agreed upon. Question Answer Comments Discussion of Advance Directives occurred with: Patient Care Teams Oceanography Teacher Relationship Specialty Start Date End Date Linda Lozano DO [address] [place] [address] PCP - General Family Medicine 03/23/22 documented as of this encounter
--- OUTSIDE RECORDS SUMMARY | 2024-01-03 23:25 | External Medical Summary ---
Author Name Unknown Address Unknown Organization [id number][place] [place] [address] [place] [address] Laboratory Report Ordering Provider Test Date Status TERESA DRISCOLL 11/23/2023 08:45:13 Final Normal: <30 mg/g creatinine< br/>High: 30-300 mg/g creatinine
Very High: >300 mg/g creatinine
Nephrotic: >2200 mg/g creatinine Observation Date Value Abnormality Reference (Units ) Status Albumin, Urine 11/23/2023 08:45:13 <1.20 (mg/dL) Final Creatinine, Urine 11/23/2023 08:45:13 49 (mg/dL) Final Albumin/Creatinine [Mass Ratio] in Urine 11/23/2023 08:45:13 <24 <30 (mg/g Creat) Final [place] [facility] [place] [address] [place] [address]
--- OUTSIDE RECORDS SUMMARY | 2024-01-03 23:25 | External Medical Summary | Summary of Care ---
Author Name Unknown Organization [facility] Address [address] [place] [address] Phone [phone] Care Team Providers [employer] Specialist Name Role Phone Linda Lozano DO Primary Care Provider Reason for Visit * Reason Onset Date Comments Follow Up Pt here today fo r routine check up Pt states she does have a cough that is in her chest. Medication Administration 12/08/2023 Flu an d/or Pneumo Inj Encounter Details Date Type Department Care Team (Late st Contact Info) Description 12/08/2023 10:10 AM EDT Office Visit [facility] [address] [place] [address] Linda Lozano, [address] [place] [address] DM type 2, goal: symptom mgmt (HCC)*; Risk and functional assessment; NIELSEN (dyspnea on exertion); Hypotension, unspecified hypotension type; Acquired hypothyroidism; Need for prophylactic vaccination and inoculation against influenza; Bradycardia Allergies Active Allergy Reactions Criticality Noted Date Comments Gentamicin Sulfate 06/12/2004 eyes sore/red Penicillins 11/26/1999 Sulfa Antibiotics 11/26/1999 documented as of this encounter (statuses as of 12/08/2023) Medications Medication Sig Dispensed Refills Start Date End Date Status ASPIRIN 81 MG PO TABSIndications:HTN , goal below 130/80 Take 1 Tablet by mouth in the morning. 0 0 06/27/2009 Active GLUCOSAMINE CHONDROITIN COMPLX 500-400 MG PO TABS Take 1 Tablet by mouth in the morning. 30 0 06/27/2009 Active CALTRATE 600+D PLUS 600-400 MG-UNIT PO TABSIndications:Gen eralized osteoarthritis 1 TABLET TWICE DAILY WITH FOOD 06/26/2010 Active LORATADINE 10 MG PO TABSIndications:All ergic rhinitis One pill by mouth once a day as needed for allergies 90 Tab 3 07/03/2011 Active [place]-3 Krill Oil 500 MG CAPS Take 1 Cap by mouth daily. 10/04/2013 Active ONETOUCH DELICA LANCETS 33G MISCIndications:Typ e 2 diabetes mellitus with hemoglobin A1c goal of less than 7.0% (FORMER[facility]) USE UP TO FOUR TIMES A DAY DIRECTED E11.9 200 Each 2 07/07/2018 Active OneTouch Ultra In Vitro Strip (Glucose Blood)Indications:D M type 2, goal: symptom mgmt ([facility]) USE STRIP TO CHECK GLUCOSE 1 time DAILY. Dx Code: E11.9 100 Strip 3 03/21/2020 Active Nitroglycerin 0.4 MG Sublingual Tablet Sublingual (Nitrostat)Indicati ons:Angina pectoris ([facility]) one tab under tongue as needed for chest pain maximum 3 doses 25 Tab 3 11/08/2020 Active Probiotic Acidophilus BioBeads Oral Capsule Take by mouth 1 Capsule in the morning. Active Famotidine 20 MG Oral Tablet (Pepcid)Indications :GERD (gastroesophageal reflux disease) Take by mouth 1 Tablet in the morning AND 1 Tablet before bedtime. 180 Tablet 1 07/01/2021 Active Mirtazapine 15 MG Oral Tablet (Remeron) Take 1 Tablet by mouth at bedtime. 90 Tablet 3 11/09/2022 Active Atorvastatin Calcium 40 MG Oral Tablet (Lipitor)Indication s:Dyslipidemia, goal LDL below 100 Take 1 Tablet by mouth daily. 90 Tablet 3 03/08/2023 Active Metoprolol Succinate ER 25 MG Oral Tablet Extended Release 24 Hour (Toprol XL)Indications:SVT (supraventricular tachycardia) ([facility]) Take 1 Tablet by mouth in the morning. 90 Tablet 3 05/14/2023 Active FLUoxetine HCl 20 MG Oral Capsule (PROzac)Indications :Depression with anxiety Take 2 Capsules by mouth in the morning. 180 Capsule 3 10/20/2023 Active Levothyroxine Sodium 75 MCG Oral Tablet (Levoxyl)Indication s:Acquired hypothyroidism TAKE 1/2 (ONE-HALF) TABLET BY MOUTH IN THE MORNING AT LEAST 30 MINUTES PRIOR TO BREAKFAST OR OTHER MEDICATIONS 45 Tablet 10/20/2023 Active Pantoprazole Sodium 40 MG Oral Tablet Delayed Release (Protonix)Indicatio ns:Gastroesophageal reflux disease, unspecified whether esophagitis present TAKE 1 TABLET BY MOUTH ONCE DAILY IN THE MORNING 90 Tablet 3 10/20/2023 Active Dicyclomine HCl 10 MG Oral Capsule (Bentyl) Take 1 Capsule by mouth 4 times a day as needed for Diarrhea. For abdominal pain 120 Capsule 11 05/31/2023 12/08/19 Discontinu ed(Patient preference /discontin uation) documented as of this encounter (statuses as of 12/08/2023) Active Problems Problem Noted Date Diagnosed Date [...] as of this encounter (statuses as of 12/08/2023) Resolved Problems Problem Noted Date Diagnosed Date [...] as of this encounter (statuses as of 12/08/2023) Immunizations Name Administration Dates Next Due COVID-19 mRNA, LNP-s, No Pre serve, 2-Dose Series (Moderna) 05/15/2020,04/10/2020 Pneumococcal Conjugate Vacc, 13 Valent (Prevnar) 07/11/2015 Pneumococcal Polysaccharide PPV23 (Pneumovax) 06/27/2009 Season Influenza, Quad, PF, Adjuvanted, 65+ Yrs, IM (FLUAD) 11/11/2022,10/19/2019 Seasonal Influenza Vac., MDV , IM, 0.5 mL (Fluzone) 10/18/2014,11/06/2013,12/23/2012,11/18,11/07/2010,12/02/2009,11/22/2008 ,02/01/2008,12/03/2006,12/18/2005,11/04/2005 Seasonal Influenza, High Dos e, Trivalent, PF, IM (Fluzone HD) 12/08/2023 Seasonal Influenza, PF, 6 M & above, IM , (FluLaval or Fluzone) 11/10/2018,11/19/2017 Seasonal Influenza, Quadriva lent Hd (Fluzone Hd) 04/02/2022 Seasonal Influenza, Quadriva lent, No Preserve, IM 10/28/2016,11/11/2015 TDAP (age 10 and older)(Boostrix) 12/12/2014 Zoster [...] 10:45 AM EDT Sexual Orientation Straight 12/08/2023 9 :57 AM EDT Job Start Date Occupation Industry Not on file Not on file Not on file documented as of this encounter Last Filed Vital Signs Vital Sign Reading Time Taken Comments Blood Pressure 108/62 12/08/2023 9:53 AM EDT Pulse 68 12/08/2023 9:53 AM EDT Temperature 36.4 C (97.6 F) 12/08/2023 9:53 AM E DT Respiratory Rate 18 12/08/2023 9:53 AM EDT Oxygen Saturation 94% 12/08/2023 9:53 AM EDT Inhaled Oxygen Concentration - - Weight 77 kg (169 lb 11.2 oz) 12/08/2023 9:53 AM EDT Height - - Body Mass Index 34.28 10/05/2023 8:19 AM EDT documented in this encounter Patient Instructions * Patient Instructions* Brook Russell LPN - 12/08/2023 9:57 AM EDT Osteoporosis: Screening for Bone Loss The strength of bones is measured by their density (thickness). High bone density means bones are less likely to fracture. If you are at risk for bone loss, your healthcare provider may refer you forbone density testing. Bone Density Testing Bone density testing is safe, quick, easy, and painless. Testing can detect osteoporosis before a fracture happens. It can also predict the risk of future fractures. And testing can measure the response to treatment. There are two types of tests that you may have: Peripheral tests are used for screening. They measure density in the finger, wrist, knee, pickett, or heel. A common peripheral test is the quantitative ultrasound (QUS). Central tests are used for diagnosis. They measure density in the hip or spine. The main centraltest is the dual energy x-ray absorptiometry (DXA). The DXA is the standard bone density test. Who Should Be Tested? All postmenopausal women under age 65, with one or more risk factors in addition to menopause. All women age 65 and older. Postmenopausal women with fractures. Women who are thinking about treatment for osteoporosis. Women who have been on hormone therapy for a long time. Men or women with certain medical conditions or who are taking certain medications (such as glucocorticoids or prednisone) for a long period. Common Testing Sites Any bone can fracture, but with osteoporosis some bones fracture more easily. These include bones in the spine, wrist, shoulder, and hip. Thats why bone density testing may be done at one or more of these sites. Understanding Your Results The results of your test may seem confusing at first. Dont be afraid to ask your provider to explain. Your bone mineral density (BMD) describes the thickness of the bone that was scanned. Your healthcare provider will compare your BMD with the BMD of young, healthy bone. The result is called a T-score. Bones remodel at different rates. So, a healthy T-score in the wrist doesnt mean the spine is also healthy. Thats why more than one site may be scanned. [id number] [address]. All rights reserved. This information is not intended as a substitute for professional medical care. Always follow your healthcare professional's instructions Patient Instructions - Fall Prevention (This education is for all patients over 65 regardless of symptoms) Remember to take your current medications as prescribed. In order to prevent falls, you are encouraged to: Exercise Utilize assistive/adaptive devices Avoid multifocal lenses when walking Avoid hazards in home Maintain a regular toileting schedule Any questions please contact our office. Preventing Falls in the Home (This education is for all patients over 65 regardless of symptoms) As you get older, falls are more likely. Thats because your reaction time slows. Your muscles and joints may also get stiffer, making them less flexible. Illness, medications, and vision changes can also affect your balance. A fall could leave you unable to live on your own. To make your home safer, follow these tips: Floors Put nonskid pads under area rugs Remove throw rugs Replace worn floor coverings Tack carpets firmly to each step on carpeted stairs. Put nonskid strips on the edges of uncarpeted stairs Keep floors and stairs free of clutter and cords Arrange furniture so there are clear pathways Clean up any spills right away Bathrooms Install grab bars in the tub or shower Apply nonskid strips or put a nonskid rubber mat in the tub or shower Sit on a bath chair to bathe Use bathmats with nonskid backing Lighting Keep a flashlight in each room Put a nightlight along the pathway between the bedroom and the bathroom [employer] Patient Education Copyright 2008 - 2010 [employer] except where otherwise noted Preventing Falls: Exercises to Improve Balance, Flexibility, Strength, and Staying Power (This education is for all patients over 65 regardless of symptoms) Certain types of exercises may help make you less likely to fall. Try the ones below. Or do other exercises that your healthcare provider suggests. Depending on your health, you may need to start slowly. Dont let that stop you. Even small amounts of exercise can help you. Be sure to talk to yourhealthcare provider before starting any exercise program. Improve Balance Many types of exercise can help improve balance. Cali chi and yoga are good examples. Heres another one to try. You can do it anytime and almost anywhere. Stand next to a counter or solid support. Push yourself up onto your tiptoes. Hold for 5 seconds. If you start to lose your balance, hold on to the counter. Rest and repeat 5 times. Work up to holding for 20 to 30 seconds, if you can. Increase Flexibility Being more flexible makes it easier for you to move around safely. Try exercises like the seated hamstring stretch. Sit in a chair and put one foot on a stool. Straighten your leg and reach with both hands down either side of your leg. Reach as far down your leg as you can. Hold for about 20 seconds. Go back to the starting position. Then repeat 5 times. Switch legs. Build Strength Resistance exercises help build strength. You can do them without equipment. Or you can use weights, elastic bands, or special machines. One such exercise is called the biceps curl. You can hold a 1 pound weight or even a can of soup. Do this exercise at least 3 times a week. Strive for everyday. Sit up straight in a chair. Keep your elbow close to your body and your wrist straight. Bend your arm, moving your hand up to your shoulder. Then slowly lower your arm. Repeat 5 times. Switch to the other arm. Build Your Staying Power Aerobic exercises make your heart and lungs stronger so you can keep moving longer. Walking and swimming are two of the best types of exercises you can do. Using a stationary bike is great, too. Find an aerobic exercise that you enjoy. Start slowly and build up. Even 5 minutes is helpful. Aimfor a goal of 30 minutes, at least 3 times a week. You dont have to do 30 minutes in one session. Break it up and walk a little throughout the day. More Helpful Tips Start easy. Slowly work up to doing more. Talk with your healthcare provider about the best exercises for you. Call senior centers or health clubs about exercise programs. If needed, have a family member watch you walk every so often to check your stability. Exercise with a friend. Choose an activity you both enjoy. Try exercises that you can do anytime, anywhere. Here are two examples. Have someone with you when you first try these: Practice walking by placing one foot right in front of the other. Stand up and sit down 10 times. Repeat this throughout the day. [employer] Patient Education Copyright 2009 - 2010 [employer] except where otherwise noted. Preventing Falls: Moving Safely Using a Cane or Walker (This education is for all patients over 65 regardless of symptoms) Keep the cane away from your feet so you dont trip. A walking aid, such as a cane or walker, can help you stay more independent and avoid falls. Remember to keep your walking aid within easy reach when youre in a chair or in bed. And learn how to use it safely so you dont injure yourself. Using a Cane If you have a stronger side, hold the cane on that side. Get your balance. Move the cane and your weaker leg forward. Support your weight on both the cane and your weaker side. Step with your stronger leg. Start again from step 1. If youre using a folding walker, be sure you know how to lock it open. Check that its locked open before each use. Using a Walker Roll the walker (or lift it, if youre using one without wheels) forward about 12 inches. Step forward with your weaker leg first. Use the walker to help keep your balance. Bring your other foot forward to the center of the walker. Start again from step 1. Helpful Tips Check with your healthcare provider about the right walking aid to use. Ask about a walker with a seat attached. Check the tips of your cane or walker to make sure they have nonskid covers. Move slowly from room to room. Dont chapin. Sit down to get dressed. Use a butch pack or backpack to keep your hands free. Get help for jobs that mean climbing, even on a stepstool. [employer] Patient Education Copyright 2008 - 2010 [employer] except where otherwise noted. Urinary Incontinence Plan of Care Documentation: (This education is for all patients over 65 regardless of symptoms) Current medications reconciled. Patient encouraged to: Practice kegal exercises Provide education materials Use the restroom every 2 hours throughout the day Limit caffeine, alcohol, spicy foods and acidic foods Keep a bladder diary Limit fluid intake 3-4 hours before bed Lose weight Prevent constipation Take fluid pills at a time when you can get to the bathroom quickly Control sugar better if diabetic Limit fluid intake to 60 oz. per day Wear support stockings (TEDs)if you have edema Brook Russell LPN 12/08/2023 Kegel Exercises Kegel exercises dont require special clothing or equipment. Theyre easy to learn and simple to do. And if you do them right, no one can tell youre doing them, so they can be done almost anywhere. Your doctor, nurse, or physical therapist can answer any questions you have and help you get started. A Weak Pelvic Floor The pelvic floor muscles may weaken due to aging, and vaginal childbirth, injury, surgery, chronic cough, or lack of exercise. If the pelvic floor is weak, your bladder and other pelvic organs may sag out of place. The urethra may also open too easily and allow urine to leak out. Kegel exercises can help you strengthen your pelvic floor muscles so they can better support the pelvic organs and control urine flow. How Kegel Exercises Are Done Try each of the Kegel exercises described below. When youre doing them, try not to move your leg, buttock, or stomach muscles. While youre urinating, try to stop the flow of urine. Start and stop it as often as you can. Contract as if you were stopping your urine stream, but do it when youre not urinating. Tighten your rectum as if trying not to pass gas. Contract your anus, but dont move your buttocks. Helpful Hints Do your Kegels as often as you can. The more you do them, the faster youll feel the results. Pick an activity you do often as a reminder. For instance, do your Kegels every time you sit down. Tighten your pelvic floor before you sneeze, get up from a chair, cough, laugh, or lift. This protects your pelvic floor from injury and can help prevent urine leakage. Try to hold each Kegel for a slow count to five. You probably wont be able to hold them for thatlong at first, but keep practicing. It will get easier as your pelvic floor gets stronger. Eventually, special weights that you place in your vagina may be recommended to help make your Kegels even more effective. [employer] Patient Education Copyright 2009 - 2010 [employer] except where otherwise noted. Here are some helpful tips for your urinary incontinence: (This education is for all patients over 65 regardless of symptoms) Practice Kegel exercises Use the restroom every 2 hours throughout the day Limit caffeine, alcohol, spicy foods, and acidic foods Keep a bladder diary Limit fluid intake 3-4 hours before bed Lose weight Prevent constipation Take fluid pills at a time when can get to the bathroom quickly Control sugar better if diabetic Limit fluid intake to 60 oz. per day Any questions, please feel free to contact our office. ~~PATIENT INSTRUCTIONS FOR FLU SHOT~~ Possible side effects of influenza vaccine, (flu shot), are usually mild and include: 1. Soreness or redness at injection site 2. Low grade fever 3. Body aches You may use Tylenol/Acetaminophen as needed for these symptoms. LET YOUR DOCTOR KNOW IMMEDIATELY IF YOU HAVE DIFFICULTY BREATHING OR SWALLOWING, EXPERIENCE ITCHINGOF FEET OR HANDS, HAVE SWELLING OF EYES, FACE OR INSIDE OF NOSE. documented in this encounter Progress Notes * Linda Lozano, DO - 12/08/2023 10:16 AM EDT Subjective: Shruti Suarez is a 83 year old female. Chief Complaint Patient presents with Follow Up Pt here today for routine check up Pt states she does have a cough that is in her chest. HPI: 83 year old with HTN, Type 2 diabetes, Chronic Renal Insuffiencey, arthritis, and hypothyroidism. + cough, for a few weeks. No fevers. Dry. Keeps her up at night. Last OV, she was started on Dicyclomine for diarrhea, but this did not help. She had stool culturesordered. But she declined. She is taking fiber, and this is helping. Has seen nephrology a few weeks back and had Low BP. Lisinopril was on her med list she is still not sure if she is taking this. She will look when she goes home, I wrote the name of the medication down. PHM: Patient Active Problem List Diagnosis Major depressive disorder Internal hemorrhoids Hypothyroidism Mixed Dyslipidemia LBBB (left bundle branch block) HTN, goal below 140/90 Kidney disease, chronic, stage III (GFR 30-59 ml/min) (HCC) DM type 2, goal: symptom mgmt (HCC) Raynaud's disease Diabetes mellitus with stage 3 chronic kidney disease (HCC) Hypertensive kidney disease with chronic kidney disease stage III (HCC) Major depressive disorder, single episode, mild (HCC) Type 2 diabetes mellitus with stage 3a chronic kidney disease, without long-term current use of insulin (HCC) Hypertensive kidney disease with stage 3a chronic kidney disease (HCC) SVT (supraventricular tachycardia) (HCC) Hypothyroidism due to acquired atrophy of thyroid Current Outpatient Medications Medication Sig Dispense Refill ASPIRIN 81 MG PO TABS Take 1 Tablet by mouth in the morning. 0 0 GLUCOSAMINE CHONDROITIN COMPLX 500-400 MG PO TABS Take 1 Tablet by mouth in the morning. 30 0 CALTRATE 600+D PLUS 600-400 MG-UNIT PO TABS 1 TABLET TWICE DAILY WITH FOOD LORATADINE 10 MG PO TABS One pill by mouth once a day as needed for allergies 90 Tab 3 [place]-3 Krill Oil 500 MG CAPS Take 1 Cap by mouth daily. ONETOUCH DELICA LANCETS 33G MISC USE UP TO FOUR TIMES A DAY DIRECTED E11.9 200 Each 2 OneTouch Ultra In Vitro Strip (Glucose Blood) USE STRIP TO CHECK GLUCOSE 1 time DAILY. Dx Code: E11.9 100 Strip 3 Nitroglycerin 0.4 MG Sublingual Tablet Sublingual (Nitrostat) one tab under tongue as needed for chest pain maximum 3 doses 25 Tab 3 Probiotic Acidophilus BioBeads Oral Capsule Take by mouth 1 Capsule in the morning. Famotidine 20 MG Oral Tablet (Pepcid) Take by mouth 1 Tablet in the morning AND 1 Tablet before bedtime. 180 Tablet 1 Mirtazapine 15 MG Oral Tablet (Remeron) Take 1 Tablet by mouth at bedtime. 90 Tablet 3 Atorvastatin Calcium 40 MG Oral Tablet (Lipitor) Take 1 Tablet by mouth daily. 90 Tablet 3 Metoprolol Succinate ER 25 MG Oral Tablet Extended Release 24 Hour (Toprol XL) Take 1 Tablet by mouth in the morning. 90 Tablet 3 FLUoxetine HCl 20 MG Oral Capsule (PROzac) Take 2 Capsules by mouth in the morning. 180 Capsule 3 Levothyroxine Sodium 75 MCG Oral Tablet (Levoxyl) TAKE 1/2 (ONE-HALF) TABLET BY MOUTH IN THE MORNING AT LEAST 30 MINUTES PRIOR TO BREAKFAST OR OTHER MEDICATIONS 45 Tablet 0 Pantoprazole Sodium 40 MG Oral Tablet Delayed Release (Protonix) TAKE 1 TABLET BY MOUTH ONCE DAILY IN THE MORNING 90 Tablet 3 No current facility-administered medications for this visit. Review of patient's allergies indicates: Allergen Reactions Gentamicin Sulfate eyes sore/red Penicillins Sulfa Antibiotics Objective: BP 108/62 | Pulse 68 | Temp 36.4 C (97.6 F) (Tympanic) | Resp 18 | Wt 77 kg (169 lb 11.2 oz) | SpO2 94% | BMI 34.28 kg/m | BSA 1.79 m Physical Exam: General: alert, healthy, and no distress Heart: bradycarida no murmur, and no gallops Lungs: chest symmetric with normal AP diameter, no chest deformities noted, no chest wall tenderness, lungs clear to auscultation Abdomen: abdomen soft, non-tender, normal bowel sounds, and no masses or organomegaly Extremities: no edema ASSESSMENT/PLAN: DM type 2, goal: symptom mgmt (HCC) (Primary) - HEMOGLOBIN A1C; Future; Expected date: 12/08/2023 Risk and functional assessment NIELSEN (dyspnea on exertion) - CBC; Future; Expected date: 12/08/2023 - IRON SCREEN, INCLUDING TIBC; Future; Expected date: 12/08/2023 - TSH WITH FREE T4 IF INDICATED; Future; Expected date: 12/08/2023 - EKG; Future; Expected date: 12/08/2023 - EKG - XR CHEST 2 VIEWS Hypotension, unspecified hypotension type - CBC; Future; Expected date: 12/08/2023 - IRON SCREEN, INCLUDING TIBC; Future; Expected date: 12/08/2023 - TSH WITH FREE T4 IF INDICATED; Future; Expected date: 12/08/2023 - EKG; Future; Expected date: 12/08/2023 - EKG Acquired hypothyroidism - TSH WITH FREE T4 IF INDICATED; Future; Expected date: 12/08/2023 Need for prophylactic vaccination and inoculation against influenza - INFLUENZA VAC., TRIVALENT, HD, PF, 65 AND ABOVE, 0.5 ML IM (FLUZONE HD) Bradycardia Cut her metoprolol in half. Wrote this down for her. To have ZIO completed. She is asymptomatic. - EXTERNAL EKG 2 TO 7 DAYS HOME ENROLLMENT; Future; Expected date: 12/09/2023 Follow Up: Return in about 6 months (around 06/07/2024) for Labs Today. | For: Labs Today | Check-out note: CXR Linda Lozano DO * Brook Russell LPN - 12/08/2023 9:57 AM EDT Dexa scan ordered today. Provider aware. Brook Russell LPN PRE - ADMINISTRATION DOCUMENTATION Are you experiencing any cold symptoms or fever? No Have you had Guillain-Lena Syndrome (an illness that causes paralysis) within the last 6 weeks? No Have you had the flu shot in the past? YES Have you ever had a reaction to the flu shot? No Brook Russell LPN, 12/08/2023 10:52 AM Immunization Administration Documentation Time Out Procedure Performed: Yes Patient Identified (Ask Name/Date of ): Yes Does the patient have a fever greater than 101 degrees today? No Patient allergic to latex? No VFC Stock: No Immunization(s) verified: Yes, Immunization Name: Flu, VIS Sheet(s) given: Yes Verified Side and Site: Yes Verified Shot(s) with Parent(s)/Patient: Yes Zio patch ss# [id number] documented in this encounter Nursing Notes * Brook Russell LPN - 12/08/2023 10:45 AM EDT ekg done as per dr's order * Brook Russell LPN - 12/08/2023 9:50 AM EDT Chief Complaint Patient presents with Follow Up Pt here today for routine check up Pt states she does have a cough that is in her chest. documented in this encounter Plan of Treatment Upcoming Encounters Date Type Department Care Team (Late st Contact Info) Description 01/03/2024 2:30 PM EST Office Visit Cardiology, [facility] [address] [facility] [place] [address] Janis Castro PA-C [address] [place] [address] 06/21/2024 11:30 AM EDT Office Visit [facility] [address] [place] [address] [place] [id number] Linda Lozano DO [address] [place] [address] 09/29/2024 2:00 PM EDT Office Visit [facility]Ian [address] [facility] [place] [address] Shawna Castro MD [address] [facility] [place] [address] Pending Results Name Type Priority Associated Diagnoses Date /Time CBC Lab Routine NIELSEN (dyspnea on exertion) Hypotension, unspecified hypotension type 12/08/2023 11:18 AM EDT IRON SCREEN, INCLUDING TIBC Lab Routine NIELSEN (dyspnea on exertion) Hypotension, unspecified hypotension type 12/08/2023 11:18 AM EDT TSH WITH FREE T4 IF INDICATED Lab Routine NIELSEN (dyspnea on exertion) Hypotension, unspecified hypotension type Acquired hypothyroidism 12/08/2023 11:18 AM EDT HEMOGLOBIN A1C Lab Routine DM type 2, goal: symptom mgmt (HCC) 12/08/2023 11:18 AM EDT Scheduled Orders Name Type Priority Associated Diagnoses Orde r Schedule CBC Lab Routine NIELSEN (dyspnea on exertion) Hypotension, unspecified hypotension type Expected: 12/08/2023 (Approximate), Expires: 12/07/2024 IRON SCREEN, INCLUDING TIBC Lab Routine NIELSEN (dyspnea on exertion) Hypotension, unspecified hypotension type Expected: 12/08/2023 (Approximate), Expires: 12/07/2024 TSH WITH FREE T4 IF INDICATED Lab Routine NIELSEN (dyspnea on exertion) Hypotension, unspecified hypotension type Acquired hypothyroidism Expected: 12/08/2023 (Approximate), Expires: 12/07/2024 HEMOGLOBIN A1C Lab Routine DM type 2, goal: symptom mgmt (HCC) Expected: 12/08/2023 (Approximate), Expires: 12/07/2024 EKG EKG Routine NIELSEN (dyspnea on exertion) Hypotension, unspecified hypotension type Expected: 12/08/2023 (Approximate), Expires: 01/07/2025 XR CHEST 2 VIEWS Medical Imaging Routine NIELSEN (dyspnea on exertion) Ordered: 12/08/2023 EXTERNAL EKG 2 TO 7 DAYS HOME ENROLLMENT Holter Routine Bradycardia Expected: 12/09/2023 (Approximate), Expires: 12/07/2024 Health Maintenance Due Date Last Done Comments DXA Scan 07/20/2018 07/21/2011, 06/2011, 09/05/2007, Additional history exists Adult Wellness Visit 08/30/2020 08/31/2019 TSH 07/21/2023 07/20/2022, 09/16, 10/12/2020, Additional history exists COVID-19 Vaccine (2023-03 5 season) 2023 05/15/2020, 04/10/2020 Depression Monitoring 10/04/2024 10/05/2023 Zoster Vaccines Completed 02/27/2023, 11/11/2022 Influenza Vaccine (FLU shot) Completed , 11/11/2022, 04/02/2022, Additional history exists documented as of this encounter Medical Devices Implanted Type Area Radio News Writer Device Identifier Shelf Expiration Date Model / Serial / Lot Lens Intraoc 23.0 - [id number] - [id number] Implanted:Qty: 1 on 01/14/2021 by Samy Warner MD at OR [facility] Right: Eye [employer]OM[employer] 09/14/2025 [id number] / [id number] / [id number] Lens Intraoc 23.0 - [id number] - [id number] Implanted:Qty: 1 on 01/28/2021 by Samy Warner MD at OR [facility] Left: Eye BA[employer] LOMB 11/14/2025 [id number] / [id number] / Percutaneous Extension 2201bun - [id number] - [id number] Implanted:Qty: 1 on 11/27/2022 by Maximus De La Rosa MD at OR [facility] N/A: Back [employer] 03/03/2025 9009 / [id number] / Kit Tined Lead - [id number] - [id number] Implanted:Qty: 1 on 11/27/2022 by Maximus De La Rosa MD at OR [facility] N/A: Back [employer] 06/08/2025 1201 / [id number] / Neurostim Non Rechargeable - [id number] - [id number] Implanted:Qty: 1 on 12/04/2022 by Maximus De La Rosa MD at OR [facility] Right: Back [employer] 04/14/2023 4101 / [id number] / documented as of this encounter Visit Diagnoses Diagnosis DM type 2, goal: symptom mgmt (HCC)- Primary Type II or unspecified type diabetes mellitus without mention of complication, not stated as uncontrolled Risk and functional assessment Screening for unspecified condition NIELSEN (dyspnea on exertion) Other dyspnea and respiratory abnormality Hypotension, unspecified hypotension type Acquired hypothyroidism Unspecified hypothyroidism Need for prophylactic vaccination and inoculation against influenza Bradycardia Other specified cardiac dysrhythmias documented in this encounter Advance Directives Documents on File Type Date Recorded 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 Advance Directives and Living Will 04/22/2020 ADVANCE DIRECTIVE / LIVING WILL Advance Directives and Living Will 04/22/2020 ADVANCE DIRECTIVE / LIVING WILL (WITH NOTARY SIGNATURE) Power of Vice President Of Software Engineering 04/22/2020 POWER OF A TTORNEY - DURABLE HEALTH CARE Power of Vice President Of Software Engineering 04/22/2020 POWER OF A TTORNEY - DURABLE [...] Advance Directives occurred with: Patient Care Teams Petroleum Supply Specialist Relationship Specialty Start Date End Date Linda Lozano DO [address] [facility] [address] PCP - General Family Medicine 03/23/22 documented as of this encounter"
--- OUTSIDE RECORDS SUMMARY | 2024-01-03 23:25 | External Medical Summary ---
Author Name Unknown Address Unknown Organization K01:[facility] [place] [facility] [place] [facility] [place] [address] [facility] [address] [facility] [address] Laboratory Report Ordering Provider Test Date Status PAUL MARINA 12/08/2023 11:18:26 Final Observation Date Value Abnormality Reference (Units ) Status WBC, Total 12/08/2023 11:18:26 9.16 4.00-10.80 (K/uL) Final RBC 12/08/2023 11:18:26 4.53 3.85-5.15 (M/uL) Final Hemoglobin 12/08/2023 11:18:26 14.0 12.0-15.3 (g/dL) Final HCT 12/08/2023 11:18:26 44.4 36.0-45.2 (%) Final MCV 12/08/2023 11:18:26 98.0 81.5-97.5 (fL) Final MCH 12/08/2023 11:18:26 30.9 27.0-34.0 (pg) Final MCHC 12/08/2023 11:18:26 31.5 32.0-36.0 (g/dL) Final RDW 12/08/2023 11:18:26 13.2 11.5-15.5 (%) Final Platelets 12/08/2023 11:18:26 263 140-400 (K/uL) Final MPV 12/08/2023 11:18:26 11.5 6.6-11.1 (fL) Final Nucleated erythrocytes/100 leukocytes [Ratio] in Blood by Automated count 12/08/2023 11:18:26 0 <=0 (/100 WBCs) Final Performing Location [facility] [place] [address] [facility] [address]
--- OUTSIDE RECORDS SUMMARY | 2024-01-03 23:25 | External Medical Summary | Summary of Care ---
Author Name Unknown Organization [facility] Address [address] [place] [address] Phone [phone] Care Team Providers Care Brick Catcher Name Role Phone Laina Miller DO Primary Care Provider Reason for Visit * Reason Comments eRx-Medication Refill Encounter Details Date Type Department Care Team (Late st Contact Info) Description 10/19/2023 Refill [place] [address] [place] [address] Laina Miller [address] [place] [address] Acquired hypothyroidism; Depression with anxiety; Gastroesophageal reflux disease, unspecified whether esophagitis present Allergies Active Allergy Reactions Criticality Noted Date Comments Gentamicin Sulfate 06/12/2004 eyes sore/red Penicillins 11/26/1999 Sulfa Antibiotics 11/26/1999 documented as of this encounter (statuses as of 10/23/2023) Medications Medication Sig Dispensed Refills Start Date End Date Status ASPIRIN 81 MG PO TABSIndications:HT N, goal below 130/80 one tab by mouth daily 0 0 06/28/19 10 Active GLUCOSAMINE CHONDROITIN COMPLX 500-400 MG PO TABS 1 TABLET DAILY 30 0 06/28/19 10 Active CALTRATE 600+D PLUS 600-400 MG-UNIT PO TABSIndications:Ge neralized osteoarthritis 1 TABLET TWICE DAILY WITH FOOD 06/27/19 11 Active LORATADINE 10 MG PO TABSIndications:Al lergic rhinitis One pill by mouth once a day as needed for allergies 90 Tab 3 07/03/19 12 Active [place]-3 Krill Oil 500 MG CAPS Take 1 Cap by mouth daily. 10/05/19 14 Active ONETOUCH DELICA LANCETS 33G MISCIndications:Ty pe 2 diabetes mellitus with hemoglobin A1c goal of less than 7.0% ([facility]) USE UP TO FOUR TIMES A DAY DIRECTED E11.9 200 Each 2 07/08/19 19 Active OneTouch Ultra In Vitro Strip (Glucose Blood)Indications: DM type 2, goal: symptom mgmt ([facility]) USE STRIP TO CHECK GLUCOSE 1 time DAILY. Dx Code: E11.9 100 Strip 3 03/21/19 21 Active Nitroglycerin 0.4 MG Sublingual Tablet Sublingual (Nitrostat)Indicat ions:Angina pectoris ([facility]) one tab under tongue as needed for chest pain maximum 3 doses 25 Tab 3 11/09/19 21 Active Probiotic Acidophilus BioBeads Oral Capsule Take by mouth 1 Capsule in the morning. Active Famotidine 20 MG Oral Tablet (Pepcid)Indication s:GERD (gastroesophageal reflux disease) Take by mouth 1 Tablet in the morning AND 1 Tablet before bedtime. 180 Tablet 1 07/02/19 22 Active Mirtazapine 15 MG Oral Tablet (Remeron) Take 1 Tablet by mouth at bedtime. 90 Tablet 3 11/10/19 23 Active Ibuprofen 800 MG Oral Tablet (Motrin) Take 1 Tablet by mouth every 8 hours as needed for Pain, Severe. Alternate with Acetaminophen 20 Tablet 11/28/19 23 Active Atorvastatin Calcium 40 MG Oral Tablet (Lipitor)Indicatio ns:Dyslipidemia, goal LDL below 100 Take 1 Tablet by mouth daily. 90 Tablet 3 03/08/19 24 Active Metoprolol Succinate ER 25 MG Oral Tablet Extended Release 24 Hour (Toprol XL)Indications:SVT (supraventricular tachycardia) ([facility]) Take 1 Tablet by mouth in the morning. 90 Tablet 3 05/14/19 24 Active Dicyclomine HCl 10 MG Oral Capsule (Bentyl) Take 1 Capsule by mouth 4 times a day as needed for Diarrhea. For abdominal pain 120 Capsule 11 05/31/19 24 Active FLUoxetine HCl 20 MG Oral Capsule (PROzac)Indication s:Depression with anxiety Take 2 Capsules by mouth in the morning. 180 Capsule 3 10/20/19 24 Active Levothyroxine Sodium 75 MCG Oral Tablet (Levoxyl)Indicatio ns:Acquired hypothyroidism TAKE 1/2 (ONE-HALF) TABLET BY MOUTH IN THE MORNING AT LEAST 30 MINUTES PRIOR TO BREAKFAST OR OTHER MEDICATIONS 45 Tablet 10/20/19 24 Active Pantoprazole Sodium 40 MG Oral Tablet Delayed Release (Protonix)Indicati ons:Gastroesophage al reflux disease, unspecified whether esophagitis present TAKE 1 TABLET BY MOUTH ONCE DAILY IN THE MORNING 90 Tablet 3 10/20/19 24 Active Pantoprazole Sodium 40 MG Oral Tablet Delayed Release (Protonix)Indicati ons:Gastroesophage al reflux disease, unspecified whether esophagitis present TAKE 1 TABLET BY MOUTH ONCE DAILY IN THE MORNING 90 Tablet 2 01/12/20 23 024 Discontinued Lisinopril 2.5 MG Oral Tablet (Prinivil)Indicati ons:HTN, goal below 140/90 TAKE 1 TABLET BY MOUTH IN THE MORNING 90 Tablet 3 03/08/19 24 024 Discontinued(Re fill) Levothyroxine Sodium 75 MCG Oral Tablet (Levoxyl)Indicatio ns:Acquired hypothyroidism TAKE 1/2 (ONE-HALF) TABLET BY MOUTH IN THE MORNING AT LEAST 30 MINUTES PRIOR TO BREAKFAST OR OTHER MEDS 45 Tablet 09/28/19 24 024 Discontinued documented as of this encounter (statuses as of 10/23/2023) Active Problems Problem Noted Date Diagnosed Date [...] as of this encounter (statuses as of 10/23/2023) Resolved Problems Problem Noted Date Diagnosed Date [...] Overview: Modified per CVA protocol #8. 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, POST-STROKE 05/29/2008 [...] within last 8 weeks 06/04/2017 Overview: ct 3/05-- old lacunar infarct documented as of this encounter (statuses as of 10/23/2023) Immunizations Name Administration Dates Next Due COVID-19 mRNA, LNP-s, No Pre serve, 2-Dose Series (Moderna) 05/15/2020,04/10/2020 Pneumococcal Conjugate Vacc, 13 Valent (Prevnar) 07/11/2015 Pneumococcal Polysaccharide PPV23 (Pneumovax) 06/27/2009 Season Influenza, Quad, PF, Adjuvanted, 65+ Yrs, IM (FLUAD) 11/11/2022,10/19/2019 Seasonal Influenza, PF, 6 M & above, IM , (FluLaval or Fluzone) 11/10/2018,11/19/2017 Seasonal Influenza, Quadriva lent Hd (Fluzone Hd) 04/02/2022 Seasonal Influenza, Quadriva lent, No Preserve, IM 10/28/2016,11/11/2015 Seasonal Influenza, Trivalen t, (IIV3), with Preserv, (Fluzone) 10/18/2014,11/06/2013,12/23/2012,11/18,11/07/2010,12/02/2009,11/22/2008 ,02/01/2008,12/03/2006,12/18/2005,04/2005 TDAP (age 10 and older)(Boostrix) 12/12/2014 Zoster [...] Female 08/16/2018 10:45 AM EDT Sexual Orientation Not on file Job Start Date Occupation Industry Not on file Not on file Not on file documented as of this encounter Miscellaneous Notes * Telephone Encounter - Ronen Lawrence - 10/23/2023 7:40 AM EDT Received message from [facility] regarding patient needing labs. Patient was notified. Successfully contacted patient and provided [facility] message. * Telephone Encounter - Leah Ramos [facility] - 10/20/2023 10:51 AM EDTSigned Prescriptions: Disp Refills Levothyroxine Sodium 75 MCG Oral Tablet (L*45 Tab*0 Sig: TAKE 1/2 (ONE-HALF) TABLET BY MOUTH IN THE MORNING AT LEAST 30 MINUTES PRIOR TO BREAKFAST OR OTHER MEDICATIONS Authorizing Provider: LAINA MILLER Ordering User: LEAH RAMOS Pantoprazole Sodium 40 MG Oral Tablet Elisha*90 Tab*3 Sig: TAKE 1 TABLET BY MOUTH ONCE DAILY IN THE MORNING Authorizing Provider: LAINA MILLER Ordering User: LEAH RAMOS Refused Prescriptions: Disp Refills FLUoxetine HCl 20 MG Oral Capsule (PROzac) 180 Ca*0 Sig: TAKE 2 CAPSULES BY MOUTH IN THE MORNING Refused By: LEAH RAMOS Reason for Refusal: Duplicate Request * Telephone Encounter - Leah Ramos RPh - 10/20/2023 10:49 AM EDT Provided 90 days supply with 0 refill(s) until upcoming appointment. Per refill protocol patient should have TSH on file within past year. Reviewed AMP report, Care Gaps/Health Maintenance, medications list, and for any routine labs typically ordered for this patient. Lab orders placed. Please contact patient to advise of labs ordered for blood draw. Fasting is not required. Advise toobtain labs before her scheduled office visit 12/08/2023. Thanks, Leah Ramos, PharmD Clinical Pharmacist [facility] [phone] 10/20/2023 10:50 AM documented in this encounter Plan of Treatment Upcoming Encounters Date Type Department Care Team (Late st Contact Info) Description 11/22/2023 1:40 PM EDT Office Visit [facility] [address] [place] [address] Shawna Castro MD [address] [place] [address] 12/08/2023 10:10 AM EDT Office Visit Family Practice, [place] [address] [place] [facility] [place] [address] Laina Miller DO [address] [place] [facility] [address] Health Maintenance Due Date Last Done Comments DXA Scan 07/20/2018 07/21/2011, 06/2011, 09/05/2007, Additional history exists Adult Wellness Visit 08/30/2020 08/31/2019 TSH 07/21/2023 07/20/2022, 09/16, 10/12/2020, Additional history exists COVID-19 Vaccine (2022- 4 season) 2023 05/15/2020, 04/10/2020 Influenza Vaccine (FLU shot) (#1) 2023 11/11/2022, 04/02/2022, 10/19/2019, Additional history exists Depression Monitoring 10/04/2024 10/05/2023 Zoster Vaccines Completed 02/27/2023, 11/11/2022 documented as of this encounter Medical Devices Implanted Type Area Building Dismantler Device Identifier Shelf Expiration Date Model / Serial / Lot Lens Intraoc 23.0 - [id number] - [id number] Implanted:Qty: 1 on 01/14/2021 by Samy Warner MD at OR [facility] Right: Eye [employer]OM[employer] 09/14/2025 [id number] / [id number] / [id number] Lens Intraoc 23.0 - [id number] - [id number] Implanted:Qty: 1 on 01/28/2021 by Samy Warner MD at OR [facility] Left: Eye BAUSCH [employer] LOMB 11/14/2025 [id number] / [id number] / Percutaneous Extension 2201bun - [id number] - [id number] Implanted:Qty: 1 on 11/27/2022 by Maximus De La Rosa MD at OR [facility] N/A: Back [employer] 03/03/2025 9009 / [id number] / Kit Tined Lead - [id number] - [id number] Implanted:Qty: 1 on 11/27/2022 by Maximus De La Rosa MD at OR [facility] N/A: Back [employer] 06/08/2025 1201 / [id number] / Neurostim Non Rechargeable - [id number] - [id number] Implanted:Qty: 1 on 12/04/2022 by Maximus De La Rosa MD at OR [facility] Right: Back [employer] 04/14/2023 4101 / [id number] / documented as of this encounter Visit Diagnoses Diagnosis Acquired hypothyroidism Unspecified hypothyroidism Depression with anxiety Dysthymic disorder Gastroesophageal reflux disease, unspecified whether esophagitis present documented in this encounter Advance Directives Documents on File Type Date Recorded 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
--- OUTSIDE RECORDS SUMMARY | 2024-01-03 23:25 | External Medical Summary ---
Author Name Unknown Address Unknown Organization K01:[facility] [place] - [address] [facility] [address] Laboratory Report Ordering Provider Test Date Status PAUL MARINA 12/08/2023 11:18:26 Final Observation Date Value Abnormality Reference (Units ) Status HbA1C 12/08/2023 11:18:26 6.1 Above high normal 4. 0-5.6 (%) Final The use of HbA1c to monitor glycemic status is based on normal hemoglobin and HbA composition. This test should not be used in patients with abnormal hemoglobin that affects the half life of the red blood cell or the in vivo glycation rates. Glucose, estimated average 12/08/2023 11:18:26 128 Above high normal <126 (mg/dL) Kilo wright Performing Location [facility] [place] [facility] [address] [facility] [address]
--- OUTSIDE RECORDS SUMMARY | 2024-01-03 23:25 | External Medical Summary | Summary of Care ---
Author Name Unknown Organization [facility] Address [address] [place] [address] Phone [phone] Care Team Providers Care Mergers And Acquisitions Attorney Name Role Phone EliasLaina santiago Primary Care Provider [phone] Reason for Visit * Reason Comments Return Visit Chronic Kidney Disease (CKD) Hypertension DM Encounter Details Date Type Department Care Team (Late st Contact Info) Description 11/22/2023 1:40 PM EDT Office Visit Nephrology, Ian Huizar [address] [place] [address] Yamila Moore MD [address] [place] [address] Hypotension, unspecified hypotension type*; Stage 3 chronic kidney disease, unspecified whether stage 3a or 3b CKD (HCC) Allergies Active Allergy Reactions Criticality Noted Date Comments Gentamicin Sulfate 06/12/2004 eyes sore/red Penicillins 11/26/1999 Sulfa Antibiotics 11/26/1999 documented as of this encounter (statuses as of 11/22/2023) Medications Medication Sig Dispensed Refills Start Date End Date Status ASPIRIN 81 MG PO TABSIndications:HT N, goal below 130/80 Take 1 Tablet by mouth in the morning. 0 0 0 Active GLUCOSAMINE CHONDROITIN COMPLX 500-400 MG PO TABS Take 1 Tablet by mouth in the morning. 30 0 0 Active CALTRATE 600+D PLUS 600-400 MG-UNIT PO TABSIndications:Ge neralized osteoarthritis 1 TABLET TWICE DAILY WITH FOOD 1 Active LORATADINE 10 MG PO TABSIndications:Al lergic rhinitis One pill by mouth once a day as needed for allergies 90 Tab 3 2 Active [place]-3 Krill Oil 500 MG CAPS Take 1 Cap by mouth daily. 4 Active ONETOUCH DELICA LANCETS 33G MISCIndications:Ty pe 2 diabetes mellitus with hemoglobin A1c goal of less than 7.0% ([facility]) USE UP TO FOUR TIMES A DAY DIRECTED E11.9 200 Each 2 9 Active OneTouch Ultra In Vitro Strip (Glucose Blood)Indications: DM type 2, goal: symptom mgmt ([facility]) USE STRIP TO CHECK GLUCOSE 1 time DAILY. Dx Code: E11.9 100 Strip 3 1 Active Nitroglycerin 0.4 MG Sublingual Tablet Sublingual (Nitrostat)Indicat ions:Angina pectoris ([facility]) one tab under tongue as needed for chest pain maximum 3 doses 25 Tab 3 1 Active Probiotic Acidophilus BioBeads Oral Capsule Take by mouth 1 Capsule in the morning. Active Famotidine 20 MG Oral Tablet (Pepcid)Indication s:GERD (gastroesophageal reflux disease) Take by mouth 1 Tablet in the morning AND 1 Tablet before bedtime. 180 Tablet 1 2 Active Mirtazapine 15 MG Oral Tablet (Remeron) Take 1 Tablet by mouth at bedtime. 90 Tablet 3 3 Active Atorvastatin Calcium 40 MG Oral Tablet (Lipitor)Indicatio ns:Dyslipidemia, goal LDL below 100 Take 1 Tablet by mouth daily. 90 Tablet 3 4 Active Metoprolol Succinate ER 25 MG Oral Tablet Extended Release 24 Hour (Toprol XL)Indications:SVT (supraventricular tachycardia) ([facility]) Take 1 Tablet by mouth in the morning. 90 Tablet 3 4 Active Dicyclomine HCl 10 MG Oral Capsule (Bentyl) Take 1 Capsule by mouth 4 times a day as needed for Diarrhea. For abdominal pain 120 Capsule 11 4 Active FLUoxetine HCl 20 MG Oral Capsule (PROzac)Indication s:Depression with anxiety Take 2 Capsules by mouth in the morning. 180 Capsule 3 4 Active Levothyroxine Sodium 75 MCG Oral Tablet (Levoxyl)Indicatio ns:Acquired hypothyroidism TAKE 1/2 (ONE-HALF) TABLET BY MOUTH IN THE MORNING AT LEAST 30 MINUTES PRIOR TO BREAKFAST OR OTHER MEDICATIONS 45 Tablet 4 Active Pantoprazole Sodium 40 MG Oral Tablet Delayed Release (Protonix)Indicati ons:Gastroesophage al reflux disease, unspecified whether esophagitis present TAKE 1 TABLET BY MOUTH ONCE DAILY IN THE MORNING 90 Tablet 3 4 Active Ibuprofen 800 MG Oral Tablet (Motrin) Take 1 Tablet by mouth every 8 hours as needed for Pain, Severe. Alternate with Acetaminophen 20 Tablet 3 024 Discontinued Lisinopril 2.5 MG Oral Tablet (Prinivil)Indicati ons:HTN, goal below 140/90 Take 1 Tablet by mouth in the morning. 90 Tablet 3 4 024 Discontinued documented as of this encounter (statuses as of 11/22/2023) Active Problems Problem Noted Date Diagnosed Date [...] as of this encounter (statuses as of 11/22/2023) Resolved Problems Problem Noted Date Diagnosed Date [...] as of this encounter (statuses as of 11/22/2023) Immunizations Name Administration Dates Next Due COVID-19 mRNA, LNP-s, No Pre serve, 2-Dose Series (Moderna) 05/15/2020,04/10/2020 Pneumococcal Conjugate Vacc, 13 Valent (Prevnar) 07/11/2015 Pneumococcal Polysaccharide PPV23 (Pneumovax) 06/27/2009 Season Influenza, Quad, PF, Adjuvanted, 65+ Yrs, IM (FLUAD) 11/11/2022,10/19/2019 Seasonal Influenza Vac., MDV , IM, 0.5 mL (Fluzone) 10/18/2014,11/06/2013,12/23/2012,11/18,11/07/2010,12/02/2009,11/22/2008 ,02/01/2008,12/03/2006,12/18/2005,1104/2005 Seasonal Influenza, PF, 6 M & above, [...] Sign Reading Time Taken Comments Blood Pressure 107/68 11/22/2023 2:31 PM EDT Pulse 60 11/22/2023 2:31 PM EDT Temperature 37.2 C (98.9 F) 11/22/2023 1:12 PM ED T Respiratory Rate 22 11/22/2023 1:12 PM EDT Oxygen Saturation 93% 11/22/2023 1:12 PM EDT Inhaled Oxygen Concentration - - Weight 76.3 kg (168 lb 4.8 oz) 11/22/2023 1:12 P M EDT Height - - Body Mass Index 33.99 10/05/2023 8:19 AM EDT documented in this encounter Patient Instructions * Patient Instructions* Yamila Moore MD - 11/22/2023 1:40 PM EDT -will reach out to cardiology about getting you back in -stop lisinopril -avoid medicines like aleve, advil, ibuprofen, aspirin more than 81 mg daily and other NSAIDS whichare not good for kidney patients. Take only tylenol (acetaminophen) up to 2000 mg daily as needed for pain or as directed by your primary care provider. -no other medication changes today -labs today -may need more testing depending on labs and heart tracing documented in this encounter Progress Notes * Yamila Moore MD - 11/22/2023 1:02 PM EDT NEPHROLOGY CLINIC NOTE [place] 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 Last seen here 07/2022. Medical history includes diet controlled diabetes since about 2012, hypertension since at least 1999, osteoarthritis, hypothyroid and complex thyroid cyst, left bundle-branch block, noncardiac chest discomfort, anxiety depression which can be pretty significant, stroke/TIA, recurrent falls. Finds CCB helps raynaud's syndrome which is quite symptomatic w/ cold weather > takes 1 bid in winter; el se takes 1 hs. Chronic vertigo can be quite sypmtomatic > last was in late 2018. Had covid feb 2021; no hospital stay. 2020 of brain cancer; their daughter was POA and kicked pt out of home and took $$; acc by DIL today and has moved in w/ her son. Was admitted to the [place] in [facility] around time of his passing for psych med titration When she established care with neph February, had been on Mobic daily since 2006 for osteoarthritis. 2013, eGFR dropped from >60 to high 40s w/ creat 1.2-1.3. ad a bad fall early April 2021 jumping off back of truck > hit her head, black eye. Early 2022 Some exertional dyspnea moving from room to room > out of breath going up/down steps;worse/more noticeable . Before Xmas, was waiting to go to a dinner at the [facility] - had chest pain; had no time for NTG immediately but did later. Passed by the time she got to event. No further pain like that since that evening. TODAY 11/22/2023: no acute interval events clinically. Drove self to clinic today; came alone. Unaware of/anxious about CKD3 dx BP low today in clinic. Not dizzy, lightheaded more than usual. Ate 2 meals today (seen 1330). Worried about 8 lb wt gain. no palpitations. Some anxiety; has been changing summer/winter clothing out>> maybe not eating like she should. No exertional dyspnea or angina. No orthostatic/presyncopal sx w/ picking up/moving bags of clothes. REVIEW OF SYSTEMS: As above Worries ongoing wt gain +edema-dependent -no new/worrisome voiding concerns No presyncoapal or orthostatic sx; no further falls (04/2021 fell jumping off back of a truck) Current Outpatient Medications Medication Sig Dispense Refill [...] as needed for allergies 90 Tab 3 [place]-3 Krill Oil 500 MG CAPS Take 1 [...] mouth in the morning. 90 Tablet 3 Dicyclomine HCl 10 MG Oral Capsule (Bentyl) Take 1 Capsule by mouth 4 times a day as needed for Diarrhea. For abdominal pain 120 Capsule 11 FLUoxetine HCl 20 MG Oral Capsule (PROzac) Take 2 Capsules by mouth in the morning. 180 Capsule 3 Lisinopril 2.5 MG Oral Tablet (Prinivil) Take 1 Tablet by mouth in the morning. 90 Tablet 3 Levothyroxine Sodium 75 MCG Oral Tablet [...] Gentamicin Sulfate eyes sore/red Penicillins Sulfa Antibiotics PHYSICAL EXAMINATION: BP Readings from Last 6 Encounters: 11/22/23 87/48 10/05/23 136/72 05/31/23 112/60 03/29/23 130/70 12/30/22 112/70 12/04/22 118/52 Wt Readings from Last 6 Encounters: 11/22/23 76.3 kg (168 lb 4.8 oz) 10/05/23 75.7 kg (166 lb 14.4 oz) 05/31/23 76.2 kg (168 lb) 03/29/23 74.4 kg (164 lb) 12/30/22 75.2 kg (165 lb 12.8 oz) 12/04/22 72.6 kg (160 lb) Pulse Readings from Last 6 Encounters: 11/22/23 67 10/05/23 64 05/31/23 65 03/29/23 76 12/04/22 61 11/27/22 72 NAD, oriented x 3, ambulatory w/o asst, small stature RRR w/o g/r; SM; prom S2; HS distant; no edema CTAB w/ reasonable air mvt No tremor, focal or global weakness; fluent speech, good historian LABS: Recent Labs Units 05/31/23 1309 05/03/23 1206 10/30/22 0934 09/02/22 1013 SODIUM - [facility] mmol/L 141 140 141 140 POTASSIUM - [facility] mmol/L 4.6 4.2 4.7 4.6 CHLORIDE - [facility] mmol/L 105 106 107 105 CO2 - [facility] mmol/L 24 24 25 ESTIMATED GLOMERULAR FILTRATION RATE - [facility] mL/min 41* 48* 47* 45* BUN - [facility] mg/dL 25* 23* 23* 19 CREATININE - [facility] mg/dL 1.3* 1.2* 1.2* 1.2* Recent Labs Units 05/03/23 1206 10/30/22 0934 07/20/22 1008 06/03/22 1524 HGB g/dL 13.8 13.5 13.1 12.8 TRANSFERRIN SATURATION PERCENT - [facility] % -- -- 34 -- Recent Labs Units 05/31/23 1309 05/03/23 1206 10/30/22 0934 09/02/22 1013 06/03/22 1524 04/02/22 1605 CALCIUM - [facility] mg/dL 9.3 9.5 9.5 9.2 < > 9.4 PHOSPHORUS - [facility] mg/dL -- -- -- -- -- 4.6 25-HYDROXY VITAMIN D - [facility] ng/mL -- -- -- -- -- 37 PTH - [facility] pg/mL -- -- -- -- -- 66* < > = values in this interval not displayed. Recent Labs Units 05/31/23 1309 07/20/22 1008 HEMOGLOBIN A1C - [facility] % 6.1* 6.2* Recent Labs Units 04/02/22 1605 ALBUMIN / CREATININE RATIO, URINE - [facility] mg/g Creat 22 Recent Labs Units 04/02/22 1605 CLARITY, URINE - [facility] Clear GLUCOSE, URINE - [facility] mg/dL Negative BILIRUBIN, URINE - [facility] Negative KETONE, URINE - [facility] mg/dL Negative SPECIFIC GRAVITY, URINE - [facility] 1.013 BLOOD, URINE - [facility] Negative PH, URINE - [facility] Units 6.0 PROTEIN, URINE - [facility] mg/dL Negative UROBILINOGEN, URINE - [facility] mg/dL Normal NITRITE, URINE - [facility] Negative ESTERASE, URINE - [facility] Negative BACTERIA, URINE - [facility] /HPF 0-25 WBC, URINE - [facility] /HPF 0-2 RBC, URINE - [facility] /HPF 0-2 ASSESSMENT AND PLAN: Stage 3 chronic kidney disease, unspecified whether stage 3a or 3b CKD (HCC) (Primary) - ALBUMIN / CREATININE RATIO, URINE - URINALYSIS WITH MICROSCOPIC EXAM - BASIC METABOLIC PANEL Hypotension, unspecified hypotension type - 3 POSITIONAL BLOOD PRESSURE - EKG - BASIC METABOLIC PANEL Follow Up: Return in about 6 months (around 05/22/2024) for clinic visit w/ PA. | For: clinic visit w/ PA | Check-out note: Waitlist To lab Asymptomatic hypotension today and not meeting criteria for orthostatic hypotension ( though she edie a beta kyara so would not expect her to meet this -- more helpful if this were a positive finding rather than a negative one) -minimal improvement with drinking water. -Question if our machine is malfunctioning due to irregular heartbeats; that said no abnormal heartrhythms auscultated. Heart sounds faint. Not obviously in florid heart failure on exam but low blood pressures concerning. >>manual BP check > 80/50 --ecg to see if PAC/PVC > none auscultated; none on ECG though quality hampered by machine sensing tremor Lead II (none observed) -stop lisinopril >>repositioned automatic BP cuff multiple times, gave more water; pt reiterates feeling fine >> got 127 SBP sitting 107 standing >>will reach out ot cardiology for f/u >> staff message sent -labs today -does not in my opinion need IV fluids or ride home or other urgent eval as long as feeling ok CKD3 on May w/o albuminuria as of 03/2022 > low esrd risk At 2 years 0.38% At 5 years 1.19% Reviewed ESRD risks and most recent renal function #s w/ pt -update labs -hold acei d/t hypotension Patient Instructions -will reach out to cardiology about getting you back in -stop lisinopril -avoid medicines like aleve, advil, ibuprofen, aspirin more than 81 mg daily and other NSAIDS whichare not good for kidney patients. Take only tylenol (acetaminophen) up to 2000 mg daily as needed for pain or as directed by your primary care provider. -no other medication changes today -labs today -may need more testing depending on labs and heart tracing I spent a total of 40-54 minutes (exact time 45 mins) on the date of service in preparation, delivery, and documentation of the care provided to Shruti Suarez excluding any time spent in the performance of separately billed services or time spent by another provider/QHP. Yamila Moore MD Nephrology, [facility] [address] [facility] [address] CC: REF: YAMILA MOORE [address] [place] [address] (office) [phone] (fax) PCP: LAINA LOZANO [address] [place] [id number] This chart was completed in part utilizing [employer] Speech Voice Recognition Software. Randomword insertions, pronoun errors, and incomplete sentences are an occasional consequence of this system due to software limitations, and ambient noise. Any questions or concerns about the content, text, or information contained within the body of this dictation should be directly addressed to the provider for clarification. documented in this encounter Nursing Notes * Jewels Carvajal LPN - 11/22/2023 1:08 PM EDT Patient identified by verbal name and date of . Chief Complaint Patient presents with Return Visit Chronic Kidney Disease (CKD) Hypertension DM No recent inpatient hospital stays or ED visits No surgery or infections requiring antibiotic therapy Notes SOB with exertion with bilateral edema to ankle/feet Last lab 05/31/23 BMP with PCP Pt does not monitor BP at home documented in this encounter Plan of Treatment Upcoming Encounters Date Type Department Care Team (Late st Contact Info) Description 12/08/2023 10:10 AM EDT Office Visit [facility] [address] [place] [facility] [place] [phone] Laina Lozano DO [address] [place] [facility] [place] [facility] [address] 09/29/2024 2:00 PM EDT Office Visit Nephrology, Ian Huizar [address] [facility] [place], [place] [address] Yamila Moore MD [address] [facility] [place], [place] [address] Pending Results Name Type Priority Associated Diagnoses Date /Time BASIC METABOLIC PANEL Lab Routine Stage 3 chronic kidney disease, unspecified whether stage 3a or 3b CKD (HCC) Hypotension, unspecified hypotension type 11/22/2023 2:31 PM EDT Scheduled Orders Name Type Priority Associated Diagnoses Orde r Schedule 3 POSITIONAL BLOOD PRESSURE Procedures Routine Hypotension, unspecified hypotension type Ordered: 11/22/2023 EKG EKG Routine Hypotension, unspecified hypotension type Ordered: 11/22/2023 ALBUMIN / CREATININE RATIO, URINE Lab Routine Stage 3 chronic kidney disease, unspecified whether stage 3a or 3b CKD (HCC) Ordered: 11/22/2023 URINALYSIS WITH MICROSCOPIC EXAM Lab Routine Stage 3 chronic kidney disease, unspecified whether stage 3a or 3b CKD (HCC) Ordered: 11/22/2023 Health Maintenance Due Date Last Done Comments DXA Scan 07/20/2018 07/21/2011, 06/2011, 09/05/2007, Additional history exists Adult Wellness Visit 08/30/2020 08/31/2019 TSH 07/21/2023 07/20/2022, 09/16, 10/12/2020, Additional history exists COVID-19 Vaccine (2023-2 5 season) 2023 05/15/2020, 04/10/2020 Influenza Vaccine (FLU shot) (#1) 2023 11/11/2022, 04/02/2022, 10/19/2019, Additional history exists Depression Monitoring 10/04/2024 10/05/2023 Zoster Vaccines Completed 02/27/2023, 11/11/2022 documented as of this encounter Medical Devices Implanted Type Area Cab Supervisor Device Identifier Shelf Expiration Date Model / Serial / Lot Lens Intraoc 23.0 - [id number] - [id number] Implanted:Qty: 1 on 01/14/2021 by Samy Warner MD at OR [facility] Right: Eye [employer] 09/14/2025 [id number] / [id number] / [id number] Lens Intraoc 23.0 - [id number] - [id number] Implanted:Qty: 1 on 01/28/2021 by Samy Warner MD at OR [facility] Left: Eye [employer] 11/14/2025 [id number] / [id number] / Percutaneous Extension 2201bun - [id number] - [id number] Implanted:Qty: 1 on 11/27/2022 by Maximus De La Rosa MD at OR [facility] N/A: Back [employer] 03/03/2025 [id number] / [id number] / Kit Tined Lead - [id number] - [id number] Implanted:Qty: 1 on 11/27/2022 by Maximus De La Rosa MD at OR [facility] N/A: Back [employer] 06/08/2025 1201 / [id number] / Neurostim Non Rechargeable - [id number] - [id number] Implanted:Qty: 1 on 12/04/2022 by Maximus De La Rosa MD at OR [facility] Right: Back [employer] 04/14/2023 4101 / [id number] / documented as of this encounter Visit Diagnoses Diagnosis Hypotension, unspecified hypotension type- Primary Stage 3 chronic kidney disease, unspecified whether stage 3a or 3b CKD (HCC) documented in this encounter Advance Directives Documents on File Type Date Recorded Patient Electrical Engineer Mep Expl anation Advance Directives and Living Will 04/22/2020 ADVANCE DIRECTIVE / LIVING WILL Advance Directives and Living Will 04/22/2020 ADVANCE DIRECTIVE / LIVING WILL (WITH NOTARY SIGNATURE) Power of Entry Level Software Developer 04/22/2020 POWER OF A TTORNEY - DURABLE HEALTH CARE Power of Entry Level Software Developer 04/22/2020 POWER OF A TTORNEY - DURABLE [...] Advance Directives occurred with: Patient Care Teams Mergers And Acquisitions Attorney Relationship Specialty Start Date End Date Laina Lozano DO [address] [place] [address] PCP - General Family Medicine 03/23/22 documented as of this encounter"
--- OUTSIDE RECORDS SUMMARY | 2024-01-03 23:25 | External Medical Summary ---
Author Name Unknown Address Unknown Organization K01:[facility] [place] [address] [place] [address] Laboratory Report Ordering Provider Test Date Status ROZ MARINAJESÚSGAUTAM 12/08/2023 11:18:26 Final Observation Date Value Abnormality Reference (Units ) Status Iron 12/08/2023 11:18:26 96 33-151 (ug /dL) Final Iron-binding capacity 12/08/2023 11:18:26 258 250-425 (ug/dL) Final Transferrin Sat % 12/08/2023 11:18:26 37 15 -55 (%) Final Performing Location [facility] [place] [facility] [address] [place] [address]
--- OUTSIDE RECORDS SUMMARY | 2024-01-03 23:25 | External Medical Summary | Summary of Care ---
Author Name Unknown Organization [facility] Address [address] [place] [address] Phone [phone] Care Team Providers Care Director Of Security Name Role Phone Linda Lozano DO Primary Care Provider Encounter Details Date Type Department Care Team (Late st Contact Info) Description 12/09/2023 Telephone [facility] [address] [place] [address] Linda Lozano DO [address] [place] [address] Allergies Active Allergy Reactions Criticality Noted Date Comments Gentamicin Sulfate 06/12/2004 eyes sore/red Penicillins 11/26/1999 Sulfa Antibiotics 11/26/1999 documented as of this encounter (statuses as of 12/09/2023) Medications Medication Sig Dispensed Refills Start Date [...] for allergies 90 Tab 3 07/03/2011 Active [place]-3 Krill Oil 500 MG CAPS Take 1 Cap by mouth daily. 10/04/2013 Active ONETOUCH CARLOS EDISONMELVA 33G MISCIndications:Type 2 diabetes mellitus with hemoglobin A1c goal of less than 7.0% ([facility]) USE UP TO FOUR TIMES A DAY DIRECTED E11.9 200 Each 2 07/07/2018 Active OneTouch Ultra In Vitro Strip (Glucose Blood)Indications:DM type 2, goal: symptom mgmt ([facility]) USE STRIP TO CHECK GLUCOSE 1 time DAILY. Dx Code: E11.9 100 Strip 3 03/21/2020 Active Nitroglycerin 0.4 MG Sublingual Tablet Sublingual (Nitrostat)Indicatio ns:Angina pectoris ([facility]) one tab under tongue as needed for [...] Release 24 Hour (Toprol XL)Indications:SVT (supraventricular tachycardia) ([facility]) Take 1 Tablet by mouth in the [...] as of this encounter (statuses as of 12/09/2023) Active Problems Problem Noted Date Diagnosed Date [...] as of this encounter (statuses as of 12/09/2023) Resolved Problems Problem Noted Date Diagnosed Date [...] as of this encounter (statuses as of 12/09/2023) Immunizations Name Administration Dates Next Due COVID-19 mRNA, LNP-s, No Pre serve, 2-Dose Series (Moderna) 05/15/2020,04/10/2020 Pneumococcal Conjugate Vacc, 13 Valent (Prevnar) 07/11/2015 Pneumococcal Polysaccharide PPV23 (Pneumovax) 06/27/2009 Season Influenza, Quad, PF, Adjuvanted, 65+ Yrs, IM (FLUAD) 11/11/2022,10/19/2019 Seasonal Influenza Vac., MDV , IM, 0.5 mL (Fluzone) 10/18/2014,11/06/2013,12/23/2012,11/18,11/07/2010,12/02/2009,11/22/2008 ,02/01/2008,12/03/2006,12/18/2005,04/2005 Seasonal Influenza, High Dos e, Trivalent, PF, [...] encounter Miscellaneous Notes * Telephone Encounter - Linda Lozano DO [...] 01/03/2024 2:30 PM EST Office Visit Cardiology, [facility] [address] [facility] [place] [address] Janis Castro PA-C [address] [facility] [place] [address] 06/21/2024 11:30 AM EDT Office Visit Family [facility], [place] [address] [place] [phone] Linda Lozano DO [address] [place] [address] 09/29/2024 2:00 PM EDT [facility] [address] [facility] [address] Shawna Castro MD [address] [place] [address] Health Maintenance Due Date Last Done Comments DXA Scan 07/20/2018 07/21/2011, 0 06/2011, 09/05/2007, Additional history exists Adult Wellness Visit 08/30/2020 08/31/2019 COVID-19 Vaccine (2023-2 5 season) 2023 05/15/2020, 04/10/2020 Depression Monitoring 10/04/2024 10/05/2023 TSH 12/07/2024 12/08/2023, 0 06/2022, 10/13/2020, Additional history exists Zoster Vaccines Completed 02/27/2023, 11/11/2022 Influenza Vaccine (FLU shot) Completed , 11/11/2022, 04/02/2022, Additional history exists documented as of this encounter Medical Devices Implanted Type Area Manager Valuation Device Identifier Shelf Expiration Date Model / Serial / Lot Lens Intraoc 23.0 - [id number] - [id number] Implanted:Qty: 1 on 01/14/2021 by Samy Warner MD at OR [facility] Right: Eye [employer]OMB 09/14/2025 [id number] / [id number] / [id number] Lens Intraoc 23.0 - [id number] - [id number] Implanted:Qty: 1 on 01/28/2021 by Samy Warner MD at OR [facility] Left: Eye BAUSCH [employer] LOMB 11/14/2025 [id number] / [id number] / Percutaneous Extension 2201bun - [id number] - [id number] Implanted:Qty: 1 on 11/27/2022 by Maximus De La Rosa MD at OR [facility] N/A: Back [employer] 03/03/2025 9009 / [id number] / Kit Tined Lead - [id number] - [id number] Implanted:Qty: 1 on 11/27/2022 by Maximus De La Rosa MD at OR [facility] N/A: Back [employer] 06/08/2025 1201 / [id number] / Neurostim Non Rechargeable - [id number] - [id number] Implanted:Qty: 1 on 12/04/2022 by Maximus De La Rosa MD at OR [facility] Right: Back [employer] 04/14/2023 4101 / [id number] / documented as of this encounter Advance Directives Documents on File Type Date Recorded Patient Car Hiker Expl anation Advance Directives and Living Will 04/22/2020 ADVANCE DIRECTIVE / LIVING WILL Advance Directives and Living Will 04/22/2020 ADVANCE DIRECTIVE / LIVING WILL (WITH NOTARY SIGNATURE) Power of Front Desk Team Member 04/22/2020 POWER OF A TTORNEY - DURABLE HEALTH CARE Power of Front Desk Team Member 04/22/2020 POWER OF A TTORNEY - DURABLE [...] Advance Directives occurred with: Patient Care Teams Director Of Security Relationship Specialty Start Date End Date Linda Lozano DO [address] [place] [address] PCP - General Family Medicine 03/23/22 documented as of this encounter
--- OUTSIDE RECORDS SUMMARY | 2024-01-03 23:25 | External Medical Summary | Summary of Care ---
Author Name Unknown Organization [facility] Address [address] [place] [address] Phone [phone] Care Team Providers Care Project Administrative Assistant Name Role Phone SarahLinda levi Primary Care Provider Reason for Visit * Reason Comments Outpatient Testing Encounter Details Date Type Department Care Team (Late st Contact Info) Description 11/22/2023 2:30 PM EDT Laboratory Laboratory [facility] [address] [place] [phone] [place], [facility] [address] [place] [address] Arrived Allergies Active Allergy Reactions Criticality Noted Date [...] FOOD 1 Active LORATADINE 10 MG PO TABSIndications:All ergic rhinitis One pill by mouth once a day as needed for allergies 90 Tab 3 2 Active [place]-3 Krill Oil 500 MG CAPS Take 1 Cap by mouth daily. 4 Active ONETOUCH DELICA LANCETS 33G MISCIndications:Typ e 2 diabetes mellitus with hemoglobin A1c goal of less than 7.0% ([facility]) USE UP TO FOUR TIMES A DAY DIRECTED E11.9 200 Each 2 9 Active OneTouch Ultra In Vitro Strip (Glucose Blood)Indications:D M type 2, goal: symptom mgmt ([facility]) USE STRIP TO CHECK GLUCOSE 1 time DAILY. Dx Code: E11.9 100 Strip 3 1 Active Nitroglycerin 0.4 MG Sublingual Tablet Sublingual (Nitrostat)Indicati ons:Angina pectoris ([facility]) one tab under tongue as [...] Release 24 Hour (Toprol XL)Indications:SVT (supraventricular tachycardia) ([facility]) Take 1 Tablet by mouth [...] THE MORNING 90 Tablet 3 4 Active Lisinopril 2.5 MG Oral Tablet (Prinivil)Indicatio ns:HTN, goal below 140/90 Take 1 Tablet by mouth in the morning. 90 Tablet 3 4 11/22/19 24 Discontinued documented as of this encounter (statuses [...] 12/05/200306/27 Vasculitis 12/06/2001 12/05/2003 ANGINA PECTORIS NEC-NOS 03/06/2000 10 Heartburn 03/06/2000 01/28/2007 HYPERLIPIDEMIA NEC-NOS 03/06/200001/28 Overview: [...] 0.5 mL (Fluzone) 10/18/2014,11/06/2013,12/23/2012,11/18,11/07/2010,12/02/2009,11/22/2008 ,02/01/2008,12/03/2006,12/18/2005,11/04/2005 Seasonal Influenza, PF, 6 M & above, [...] on file documented as of this encounter Plan of Treatment Upcoming Encounters Date Type Department Care Team (Late st Contact Info) Description 12/08/2023 10:10 AM EDT Office Visit [facility] [address] [place] [address] Linda Lozano, [address] [place] [address] 09/29/2024 2:00 PM EDT Office Visit NephrologyIan [address] [place] [address] Shawna Castro MD [address] [place] [address] Health Maintenance Due Date Last Done Comments [...] this encounter Medical Devices Implanted Type Area Engineering And Operations Director Device Identifier Shelf Expiration Date Model / Serial / Lot Lens Intraoc 23.0 - [id number] - [id number] Implanted:Qty: 1 on 01/14/2021 by Samy Warner MD at OR [facility] Right: Eye [employer] LOMB 09/14/2025 [id number] / [id number] / [id number] Lens Intraoc 23.0 - [id number] - [id number] Implanted:Qty: 1 on 01/28/2021 by Samy Warner MD at OR [facility] Left: Eye BAUSCH & LOMB 11/14/2025 [id number] / [id number] / Percutaneous Extension 2201bun - [id number] - [id number] Implanted:Qty: 1 on 11/27/2022 by Maximus De La Rosa MD at OR [facility] N/A: Back [employer] 03/03/2025 9009 / [id number] / Kit Tined Lead - [id number] - [id number] Implanted:Qty: 1 on 11/27/2022 by Maximus De La Rosa MD at OR [facility] N/A: Back [employer] 06/08/2025 1201 / [id number] / Neurostim Non Rechargeable - [id number] - [id number] Implanted:Qty: 1 on 12/04/2022 by Maximus De La Rosa MD at OR [facility] Right: Back [employer] 04/14/2023 4101 / [id number] / documented as of this encounter Advance Directives Documents on File Type Date Recorded Patient Miller First Expl anation Advance Directives and Living Will 04/22/2020 ADVANCE DIRECTIVE / LIVING WILL Advance Directives and Living Will 04/22/2020 ADVANCE DIRECTIVE / LIVING WILL (WITH NOTARY SIGNATURE) Power of Bone Char Operator 04/22/2020 POWER OF A TTORNEY - DURABLE HEALTH CARE Power of Bone Char Operator 04/22/2020 POWER OF A TTORNEY - DURABLE [...] Advance Directives occurred with: Patient Care Teams Project Administrative Assistant Relationship Specialty Start Date End Date Linda Lozano DO [address] [facility] [address] PCP - General Family Medicine 03/23/22 documented as of this encounter
--- OUTSIDE RECORDS SUMMARY | 2024-01-03 23:25 | External Medical Summary ---
Author Name Unknown Address Unknown Organization K09:[facility] [place] [address] Laboratory Report Ordering Provider Test Date Status TERESA DRISCOLL 11/22/2023 14:31:39 Final Observation Date Value Abnormality Reference (Units ) Status BUN 11/22/2023 14:31:39 21 Above high normal 6-20 (mg/dL) Final Creatinine 11/22/2023 14:31:39 1.4 Above high normal 0.5-1.0 (mg/dL) Final Glomerular filtration rate/1.73 sq M.predicted [Volume Rate/Area] in Serum, Plasma or Blood by Creatinine-based formula (CKD-EPI) 11/22/2023 14:31:39 37 Below low normal >=60 (mL/min) Final eGFR is calculated based on the CKD-EPI 2020 equation. Sodium 11/22/2023 14:31:39 140 135-146 (m mol/L) Final Potassium 11/22/2023 14:31:39 4.7 3.5-5.1 (m mol/L) Final Cl 11/22/2023 14:31:39 103 98-107 (mm ol/L) Final CO2 11/22/2023 14:31:39 26 22-32 (mmo l/L) Final Anion gap 11/22/2023 14:31:39 11 7-15 (mmol /L) Final Glucose 11/22/2023 14:31:39 95 70-120 (mg /dL) Final Calcium 11/22/2023 14:31:39 9.7 8.4-10.2 ( mg/dL) Final Performing Location [facility] [place] [address]
--- OUTSIDE RECORDS SUMMARY | 2024-01-03 23:25 | External Medical Summary ---
Author Name Unknown Address Unknown Organization K01:[facility] - [address] [place] [address] Laboratory Report Ordering Provider Test Date Status PAUL MARINA 12/08/2023 11:18:26 Final Observation Date Value Abnormality Reference (Units ) Status TSH 12/08/2023 11:18:26 2.56 0.27-4.20 (uIU/mL) Final Performing Location [facility] - [address] [place] [address]
--- OUTSIDE RECORDS SUMMARY | 2024-01-03 23:25 | External Medical Summary | Summary of Care ---
Author Name Unknown Organization [facility] Address [address] [place] [facility] [place] [place] [address] Phone [phone] Care Team Providers Care Presales Engineer Name Role Phone Linda Lozano Primary Care Provider Reason for Visit * Reason Onset Date Comments Medication Refill 10/18/2023 Encounter Details Date Type Department Care Team (Late st Contact Info) Description 10/18/2023 Refill Cardiology, [facility] [address] [place] [address] June Sorto PA-C [address] [place] [address] HTN, goal below 140/90 Allergies Active Allergy Reactions Criticality Noted Date Comments Gentamicin Sulfate 06/12/2004 eyes sore/red Penicillins 11/26/1999 Sulfa Antibiotics 11/26/1999 documented as of this encounter (statuses as of 10/20/2023) Medications Medication Sig Dispensed Refills Start Date End Date Status ASPIRIN 81 MG PO TABSIndications:HT N, goal below 130/80 one tab by mouth daily 0 0 06/28/19 10 Active GLUCOSAMINE CHONDROITIN COMPLX 500-400 MG PO TABS 1 TABLET DAILY 30 0 06/28/19 10 Active CALTRATE 600+D PLUS 600-400 MG-UNIT PO TABSIndications:Ge neralized osteoarthritis 1 TABLET TWICE DAILY WITH FOOD 05/12/20 11 Active LORATADINE 10 MG PO TABSIndications:Al lergic rhinitis One pill by mouth once a day as needed for allergies 90 Tab 3 07/03/19 12 Active [place]-3 Krill Oil 500 MG CAPS Take 1 Cap by mouth daily. 10/05/19 14 Active ONETOUCH DELICA LANCETS 33G MISCIndications:Ty pe 2 diabetes mellitus with hemoglobin A1c goal of less than 7.0% ([facility]) USE UP TO FOUR TIMES A DAY DIRECTED E11.9 200 Each 2 07/08/19 19 Active OneTouch Ultra In Vitro Strip (Glucose Blood)Indications: DM type 2, goal: symptom mgmt ([facility]) USE STRIP TO CHECK GLUCOSE 1 time DAILY. Dx Code: E11.9 100 Strip 3 03/21/19 21 Active Nitroglycerin 0.4 MG Sublingual Tablet Sublingual (Nitrostat)Indicat ions:Angina pectoris ([facility]) one tab under tongue as needed [...] Release 24 Hour (Toprol XL)Indications:SVT (supraventricular tachycardia) ([facility]) Take 1 Tablet by mouth in [...] morning. 180 Capsule 3 10/20/19 24 Active Lisinopril 2.5 MG Oral Tablet (Prinivil)Indicati ons:HTN, goal below 140/90 Take 1 Tablet by mouth in the morning. 90 Tablet 3 10/20/19 24 Active Pantoprazole [...] as of this encounter (statuses as of 10/20/2023) Active Problems Problem Noted Date Diagnosed Date [...] as of this encounter (statuses as of 10/20/2023) Resolved Problems Problem Noted Date Diagnosed Date [...] as of this encounter (statuses as of 10/20/2023) Immunizations Name Administration Dates Next Due COVID-19 [...] Trivalen t, (IIV3), with Preserv, (Fluzone) 10/18/2014,11/06/2013,12/23/2012,11/18,11/07/2010,12/02/2009,11/22/2008 ,02/01/2008,12/03/2006,12/18/2005,1104/2005 TDAP (age 10 and older)(Boostrix) 12/12/2014 Zoster [...] encounter Miscellaneous Notes * Telephone Encounter - aJnis Castro PA-C - 10/20/2023 11:16 AM EDT Reschedule follow up. * Telephone Encounter - Janis Castro PA-C - 10/20/2023 11:16 AM EDT Signed Prescriptions: Disp Refills Lisinopril 2.5 MG Oral Tablet (Prinivil) 90 Tab*3 Sig: Take 1 Tablet by mouth in the morning. Authorizing Provider: JANIS CASTRO * Telephone Encounter - Lisy Cox CMA - 10/20/2023 10:50 AM EDTPending Prescriptions: Disp Refills Lisinopril 2.5 MG Oral Tablet (Prinivil) 90 Tab*3 Sig: Take 1 Tablet by mouth in the morning. * Telephone Encounter - Lisy Cox CMA - 10/20/2023 10:50 AM EDT Did you pend patient's preferred pharmacy and medication before forwarding?yes [facility] [id number] [address] [place] Pending Prescriptions: Disp Refills Lisinopril 2.5 MG Oral Tablet (Prinivil) 90 Tab*3 Sig: Take 1 Tablet by mouth in the morning. Last Visit: 03/29/2023 (in office), Visit date not found (telemedicine) Next Visit: Visit date not found If no future appointments scheduled, and last appointment is greater than a year ago, please schedule patient for a follow-up appointment Last date the medication was ordered: 03-08-2023 Is this request for a controlled substance?No Urine Drug Screen: Results for orders placed or performed during the hospital encounter of 10/13/20 TOXICOLOGY, URINE SCREEN Result Value Amphetamines Screen, U Negative Benzodiazepines Screen, U Positive (A) Cannabinoids Screen, U Negative Cocaine Metabolite Screen, U Negative Hydrocodone Screen, U Negative Methadone Metabolite Screen, U Negative Morphine/Codeine Screen, U Negative Oxycodone Screen, U Negative Narrative Cutoff Concentrations: Drug Level Amphetamines 500 ng/mL Benzodiazepines 100 ng/mL Cannabinoids 50 ng/mL Cocaine Metabolite 150 ng/mL Hydrocodone / Hydromorphone 100 ng/mL Methadone Metabolite 100 ng/mL Morphine / Codeine 300 ng/mL Oxycodone / Oxymorphone 100 ng/mL Screening results are presumptive and can only be used for medical purposes. Confirmatory testing is available upon request. *Note: Due to a large number of results and/or encounters for the requested time period, some results have not been displayed. A complete set of results can be found in Results Review. Patient Phone Numbers Labs: Lab Results Component Value Date/Time CREAT 1.3 (H) 05/31/2023 01:09 PM CREAT 1.10 10/12/2020 12:00 AM CREAT 1.1 (H) 02/14/2020 10:07 AM POTASSIUM 4.6 05/31/2023 01:09 PM POTASSIUM 4.1 10/12/2020 12:00 AM POTASSIUM 4.0 02/14/2020 10:07 AM TSH 2.06 07/20/2022 10:08 AM TSH 1.520 10/12/2020 12:00 AM TSH 2.42 08/29/2019 10:43 AM LDL 78 05/03/2023 12:06 PM LDL 60 02/14/2020 10:07 AM LDL UNINTERPRETABLE RESULT 07/08/2018 10:06 AM ALT 24 09/02/2022 10:13 AM ALT 26 12/30/2018 11:05 AM HGBA1C 6.1 (H) 05/31/2023 01:09 PM HGBA1C 5.7 (H) 12/30/2018 11:05 AM documented in this encounter Plan of Treatment Upcoming Encounters Date Type Department Care Team (Late st Contact Info) Description 11/22/2023 1:40 PM EDT Office Visit [facility] [address] [place] [address] Shawna Castro MD [address] [place] [address] 12/08/2023 10:10 AM EDT Office Visit [address] [place] [address] Linda Lozano DO [address] [place] [address] Health Maintenance Due Date Last Done Comments DXA Scan 07/20/2018 07/21/2011, 06/2011, 09/05/2007, Additional history exists Adult Wellness Visit 08/30/2020 08/31/2019 TSH 07/21/2023 07/20/2022, 09/16, 10/12/2020, Additional history exists COVID-19 Vaccine (2022-2 4 season) 2023 05/15/2020, 04/10/2020 Influenza Vaccine (FLU shot) (#1) 2023 11/11/2022, 04/02/2022, 10/19/2019, Additional history exists Depression Monitoring 10/04/2024 10/05/2023 Zoster Vaccines Completed 02/27/2023, 11/11/2022 documented as of this encounter Medical Devices Implanted Type Area Metal Template Maker Device Identifier Shelf Expiration Date Model / Serial / Lot Lens Intraoc 23.0 - [id number] - [id number] Implanted:Qty: 1 on 01/14/2021 by Samy Warner MD at OR [facility] Right: Eye [employer]OM[employer] 09/14/2025 [id number] / [id number] / [id number] Lens Intraoc 23.0 - [id number] - [id number] Implanted:Qty: 1 on 01/28/2021 by Samy Warner MD at OR [facility] Left: Eye BAUSCH [employer] LOMB 11/14/2025 [id number] / [id number] / Percutaneous Extension 2201bun - [id number] - [id number] Implanted:Qty: 1 on 11/27/2022 by Maximus De La Rosa MD at OR [facility] N/A: Back [employer] 03/03/2025 9009 / [id number] / Kit Tined Lead - [id number] - [id number] Implanted:Qty: 1 on 11/27/2022 by Maximus De La Rosa MD at [facility] N/A: Back [employer] 06/08/2025 1201 / [id number] / Neurostim Non Rechargeable - [id number] - [id number] Implanted:Qty: 1 on 12/04/2022 by Maximus De La Rosa MD at [facility] Right: Back [employer] 04/14/2023 4101 / [id number] / documented as of this encounter Visit Diagnoses Diagnosis HTN, goal below 140/90 Unspecified essential hypertension documented in this encounter Advance Directives Documents on File Type Date Recorded Patient Fisheries Inspector Expl anation Advance Directives and Living Will 04/22/2020 ADVANCE DIRECTIVE / LIVING WILL Advance Directives and Living Will 04/22/2020 ADVANCE DIRECTIVE / LIVING WILL (WITH NOTARY SIGNATURE) Power of Time Analysis Clerk 04/22/2020 POWER OF A TTORNEY - DURABLE HEALTH CARE Power of Time Analysis Clerk 04/22/2020 POWER OF A TTORNEY - DURABLE [...] Advance Directives occurred with: Patient Care Teams Presales Engineer Relationship Specialty Start Date End Date Linda Lozano DO [address] [place] [address] PCP - General Family Medicine 03/23/22 documented as of this encounter
--- OUTSIDE RECORDS SUMMARY | 2024-01-03 23:25 | External Medical Summary ---
Author Name Unknown Address Unknown Organization K09:[facility] - [address] [place] [address] Laboratory Report Ordering Provider Test Date Status TERESA DRISCOLL 11/23/2023 08:45:13 Final Observation Date Value Abnormality Reference (Units ) Status Color of Urine by Auto 11/23/2023 08:45:13 Yellow Light Yellow, Yellow, Dark Yellow Final Clarity, Urine 11/23/2023 08:45:13 Clear Clear Final Glucose [Mass/volume] in Urine by Automated test strip 11/23/2023 08:45:13 Negative Negative (mg/dL) Final Bilirubin.total [Presence] in Urine by Automated test strip 11/23/2023 08:45:13 Negative Negative Final Ketones [Mass/volume] in Urine by Automated test strip 11/23/2023 08:45:13 Negative Negative (mg/dL) Final Specific gravity, Urine 11/23/2023 08:45:13 1.015 1.003-1.030 Final Hemoglobin [Presence] in Urine by Automated test strip 11/23/2023 08:45:13 Negative Negative Final pH, Urine 11/23/2023 08:45:13 5.0 5.0-7.5 (Units) Final Protein [Mass/volume] in Urine by Automated test strip 11/23/2023 08:45:13 Negative Negative (mg/dL) Final Urobilinogen [Mass/volume] in Urine by Automated test strip 11/23/2023 08:45:13 0.2 0.2, 1.0 (mg/dL) Final Nitrite [Presence] in Urine by Automated test strip 11/23/2023 08:45:13 Negative Negative Final Leukocyte esterase [Presence] in Urine by Automated test strip 11/23/2023 08:45:13 Negative Negative Final RBC, Urine 11/23/2023 08:45:13 0-2 0-2 (/HPF) Final WBC, Urine 11/23/2023 08:45:13 0-2 0-2 (/HPF) Final Bacteria [#/area] in Urine sediment by Microscopy high power field 11/23/2023 08:45:13 0-25 0-25 (/HPF) Final Performing Location [facility] [address] [place] [address]
--- OUTSIDE RECORDS SUMMARY | 2024-01-03 23:25 | External Medical Summary | Summary of Care ---
Author Name Unknown Organization [facility] Address [address] [place] [address] Phone [phone] Care Team Providers Care Flame Burner Name Role Phone Linda Lozano Primary Care Provider [phone] Reason for Visit * Reason Comments Outpatient Testing Encounter Details Date Type Department Care Team (Late st Contact Info) Description 12/08/2023 11:10 AM EDT Laboratory Laboratory, [facility] [address] [place] [address] [facility] [address] [place] [address] NIELSEN (dyspnea on exertion); Hypotension, unspecified hypotension type; Acquired hypothyroidism; DM type 2, goal: symptom mgmt (HCC) Allergies Active Allergy Reactions Criticality Noted [...] for allergies 90 Tab 3 07/03/2011 Active [place]-3 Krill Oil 500 MG CAPS Take 1 Cap by mouth daily. 10/04/2013 Active ONETOUCH DELICA LANCETS 33G MISCIndications:Type 2 diabetes mellitus with hemoglobin A1c goal of less than 7.0% ([facility]) USE UP TO FOUR TIMES A DAY DIRECTED E11.9 200 Each 2 07/07/2018 Active OneTouch Ultra In Vitro Strip (Glucose Blood)Indications:DM type 2, goal: symptom mgmt ([facility]) USE STRIP TO CHECK GLUCOSE 1 time DAILY. Dx Code: E11.9 100 Strip 3 03/21/2020 Active Nitroglycerin 0.4 MG Sublingual Tablet Sublingual (Nitrostat)Indicatio ns:Angina pectoris ([facility]) one tab under tongue as [...] Release 24 Hour (Toprol XL)Indications:SVT (supraventricular tachycardia) ([facility]) Take 1 Tablet by mouth [...] MDV , IM, 0.5 mL (Fluzone) 10/18/2014,11/06/2013,12/23/2012,11/18,11/07/2010,12/02/2009,11/22/2008 ,02/01/2008,12/03/2006,12/18/2005,11/0 04/2005 Seasonal Influenza, High Dos e, Trivalent, PF, [...] 01/03/2024 2:30 PM EST Office Visit Cardiology, [facility] [address] [facility] [place] [address] Janis Castro PA-C [address] [facility] [place] [address] 06/21/2024 11:30 AM EDT Office Visit Family [facility] [address] [place] [phone] Linda Lozano DO [address] [place] [address] 09/29/2024 2:00 PM EDT Office Visit Nephrology, [facility] [address] [place] [address] Shawna Castro MD [address] [facility] [place] [address] Pending Results Name Type Priority Associated Diagnoses [...] symptom mgmt (HCC) 12/08/2023 11:18 AM EDT Health Maintenance Due Date Last Done Comments [...] this encounter Medical Devices Implanted Type Area Pressed Or Blown Glass Worker Device Identifier Shelf Expiration Date Model / Serial / Lot Lens Intraoc 23.0 - [id number] - [id number] Implanted:Qty: 1 on 01/14/2021 by Samy Warner MD at OR [facility] Right: Eye [employer] 09/14/2025 [id number] / [id number] / [id number] Lens Intraoc 23.0 - [id number] - [id number] Implanted:Qty: 1 on 01/28/2021 by Samy Warner MD at OR [facility] Left: Eye [employer]OMB 11/14/2025 [id number] / [id number] / Percutaneous Extension 2201bun - [id number] - [id number] Implanted:Qty: 1 on 11/27/2022 by Maximus De La Rosa MD at OR [facility] N/A: Back [employer] 03/03/2025 9009 / [id number] / Kit Tined Lead - [id number] - [id number] Implanted:Qty: 1 on 11/27/2022 by Maximus De La Rosa MD at OR [facility] N/A: Back [employer] 06/08/2025 1201 / [id number] / Neurostim Non Rechargeable - [id number] - [id number] Implanted:Qty: 1 on 12/04/2022 by Maximus De La Rosa MD at OR [facility] Right: Back [employer] 04/14/2023 4101 / [id number] / documented as of this encounter Visit Diagnoses Diagnosis NIELSEN (dyspnea on exertion) Other dyspnea and respiratory abnormality Hypotension, unspecified hypotension type Acquired hypothyroidism Unspecified hypothyroidism DM type 2, goal: symptom mgmt (HCC) Type II or unspecified type diabetes mellitus without mention of complication, not stated as uncontrolled documented in this encounter Advance Directives Documents on File Type Date Recorded Patient Toll Relief Operator Expl anation Advance Directives and Living Will 04/22/2020 ADVANCE DIRECTIVE / LIVING WILL Advance Directives and Living Will 04/22/2020 ADVANCE DIRECTIVE / LIVING WILL (WITH NOTARY SIGNATURE) Power of Color Repairer 04/22/2020 POWER OF A TTORNEY - DURABLE HEALTH CARE Power of Color Repairer 04/22/2020 POWER OF A TTORNEY - DURABLE [...] Advance Directives occurred with: Patient Care Teams Flame Burner Relationship Specialty Start Date End Date Linda Lozano DO [address] [place] [address] PCP - General Family Medicine 03/23/22 documented as of this encounter
--- OUTSIDE RECORDS SUMMARY | 2024-01-03 23:25 | External Medical Summary | Summary of Care ---
Author Name Unknown Organization [facility] Address [address] [place] [address] Phone [phone] Care Team Providers Care Optics Technical Officer Name Role Phone SarahLinda levi Primary Care Provider Reason for Visit * Reason Comments Outpatient Testing Encounter Details Date Type Department Care Team (Late st Contact Info) Description 11/23/2023 8:50 AM EDT Laboratory Laboratory [facility] [address] [place] [address] [place] [address] [place] [address] Arrived Allergies Active Allergy Reactions Criticality Noted Date Comments Gentamicin Sulfate 06/12/2004 eyes sore/red Penicillins 11/26/1999 Sulfa Antibiotics 11/26/1999 documented as of this encounter (statuses as of 11/23/2023) Medications Medication Sig Dispensed Refills Start Date [...] for allergies 90 Tab 3 07/03/2011 Active [place]-3 Krill Oil 500 MG CAPS Take 1 Cap by mouth daily. 10/04/2013 Active ONETOUCH [place] LANCETS 33G MISCIndications:Type 2 diabetes mellitus with hemoglobin A1c goal of less than 7.0% ([facility]) USE UP TO FOUR TIMES A DAY DIRECTED E11.9 200 Each 2 07/07/2018 Active OneTouch Ultra In Vitro Strip (Glucose Blood)Indications:DM type 2, goal: symptom mgmt ([facility]) USE STRIP TO CHECK GLUCOSE 1 time DAILY. Dx Code: E11.9 100 Strip 3 03/21/2020 Active Nitroglycerin 0.4 MG Sublingual Tablet Sublingual (Nitrostat)Indicatio ns:Angina pectoris ([facility]) one tab under tongue as needed for [...] 24 Hour (Toprol XL)Indications:SVT (supraventricular tachycardia) ([facility]) Take 1 Tablet by mouth in the morning. 90 Tablet 3 05/14/2023 Active Dicyclomine HCl 10 MG Oral Capsule (Bentyl) Take 1 Capsule by mouth 4 times a day as needed for Diarrhea. For abdominal pain 120 Capsule 11 05/31/2023 Active FLUoxetine HCl 20 MG Oral Capsule [...] as of this encounter (statuses as of 11/23/2023) Active Problems Problem Noted Date Diagnosed Date [...] as of this encounter (statuses as of 11/23/2023) Resolved Problems Problem Noted Date Diagnosed Date [...] as of this encounter (statuses as of 11/23/2023) Immunizations Name Administration Dates Next Due COVID-19 mRNA, LNP-s, No Pre serve, 2-Dose Series (Moderna) 05/15/2020,04/10/2020 Pneumococcal Conjugate Vacc, 13 Valent (Prevnar) 07/11/2015 Pneumococcal Polysaccharide PPV23 (Pneumovax) 06/27/2009 Season Influenza, Quad, PF, Adjuvanted, 65+ Yrs, IM (FLUAD) 11/11/2022,10/19/2019 Seasonal Influenza Vac., MDV , IM, 0.5 mL (Fluzone) 10/18/2014,11/06/2013,12/23/2012,11/18,11/07/2010,12/02/2009,11/22/2008 ,02/01/2008,12/03/2006,12/18/2005,11/0 04/2005 Seasonal Influenza, PF, 6 M & above, [...] Description 12/08/2023 10:10 AM EDT Office Visit [facility] [address] [place] [address] Linda Lozano DO [address] [place] [address] 01/03/2024 2:30 PM EST Office Visit Cardiology, [facility] [address] [facility] [place] [address] Janis Castro PA-C [address] [place] [address] 09/29/2024 2:00 PM EDT Office Visit Nephrology, [facility] [address] [place] [address] Shawna Castro MD [address] [place] [address] Health Maintenance Due Date Last Done Comments DXA Scan 07/20/2018 07/21/2011, 06/2011, 09/05/2007, Additional history exists Adult Wellness Visit 08/30/2020 08/31/2019 TSH 07/21/2023 07/20/2022, 09/16, 10/12/2020, Additional history exists COVID-19 Vaccine (2023-03 5 season) 2023 05/15/2020, 04/10/2020 Influenza Vaccine (FLU shot) (#1) 2023 11/11/2022, 04/02/2022, 10/19/2019, Additional history exists Depression Monitoring 10/04/2024 10/05/2023 Zoster Vaccines Completed 02/27/2023, 11/11/2022 documented as of this encounter Medical Devices Implanted Type Area Pm Technician Device Identifier Shelf Expiration Date Model / Serial / Lot Lens Intraoc 23.0 - [id number] - [id number] Implanted:Qty: 1 on 01/14/2021 by Samy Warner MD at OR [facility] Right: Eye [employer]OM[employer] 09/14/2025 [id number] / [id number] / [id number] Lens Intraoc 23.0 - [id number] - [id number] Implanted:Qty: 1 on 01/28/2021 by Samy Warner MD at OR [facility] Left: Eye BAUSCH [employer]OMB 11/14/2025 [id number] / [id number] / Percutaneous Extension 2201bun - [id number] - [id number] Implanted:Qty: 1 on 11/27/2022 by Maximus De La Rosa MD at OR [facility] N/A: Back [employer] 03/03/2025 9009 / [id number] / Kit Tined Lead - [id number] - [id number] Implanted:Qty: 1 on 11/27/2022 by Maximus De La Rosa MD at OR [facility] N/A: Back [employer] 06/08/2025 1201 / [id number] / Neurostim Non Rechargeable - [id number] - [id number] Implanted:Qty: 1 on 12/04/2022 by Maximus De La Rosa MD at OR [facility] Right: Back [employer] 04/14/2023 4101 / [id number] / documented as of this encounter Advance Directives Documents on File Type Date Recorded Patient Commutator Repairer Expl 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
--- OUTSIDE RECORDS SUMMARY | 2024-01-03 23:26 | External Medical Summary | Summary of Care ---
Author Name Unknown Organization [facility] Address [address] [place] [address] Phone [phone] Care Team Providers Care Restaurant Mgr Name Role Phone Laina Miller DO Primary Care Provider Reason for Visit * Reason Onset Date Comments Medication Refill 10/18/2023 Encounter Details Date Type Department Care Team (Late st Contact Info) Description 10/18/2023 Refill [place] [address] [place] [address] Laina Miller DO [address] [place] [address] Depression with anxiety Allergies Active Allergy Reactions Criticality Noted Date [...] allergies 90 Tab 3 07/03/19 12 Active [place]-3 Krill Oil 500 MG CAPS Take 1 Cap by mouth daily. 10/05/19 14 Active ONETOUCH DELICA LANCETS 33G MISCIndications:Ty pe 2 diabetes mellitus with hemoglobin A1c goal of less than 7.0% ([facility]) USE UP TO FOUR TIMES A DAY DIRECTED E11.9 200 Each 2 07/08/19 19 Active OneTouch Ultra In Vitro Strip (Glucose Blood)Indications: DM type 2, goal: symptom mgmt ([facility]) USE STRIP TO CHECK GLUCOSE 1 time DAILY. Dx Code: E11.9 100 Strip 3 03/21/19 21 Active Nitroglycerin 0.4 MG Sublingual Tablet Sublingual (Nitrostat)Indicat ions:Angina pectoris ([facility]) one tab under tongue as needed for [...] daily. 90 Tablet 3 03/08/19 24 Active Lisinopril 2.5 MG Oral Tablet (Prinivil)Indicati ons:HTN, goal below 140/90 TAKE 1 TABLET BY MOUTH IN THE MORNING 90 Tablet 3 03/08/19 24 Active Metoprolol Succinate ER 25 MG Oral Tablet Extended Release 24 Hour (Toprol XL)Indications:SVT (supraventricular tachycardia) ([facility]) Take 1 Tablet by mouth in the [...] morning. 180 Capsule 3 10/20/19 24 Active FLUoxetine HCl 20 MG Oral Capsule (PROzac)Indication s:Depression with anxiety Take 2 Capsules by mouth in the morning. 180 Capsule 3 11/10/19 23 024 Discontinued(Re fill) Pantoprazole Sodium 40 MG Oral Tablet Delayed Release (Protonix)Indicati ons:Gastroesophage al reflux disease, unspecified whether esophagitis present TAKE 1 TABLET BY MOUTH ONCE DAILY IN THE MORNING 90 Tablet 2 01/12/20 23 024 Discontinued Levothyroxine Sodium 75 MCG Oral Tablet (Levoxyl)Indicatio [...] Trivalen t, (IIV3), with Preserv, (Fluzone) 10/18/2014,11/06/2013,12/23/2012,11/18,11/07/2010,12/02/2009,11/22/2008 ,02/01/2008,12/03/2006,12/18/2005,11/04/2005 TDAP (age 10 and older)(Boostrix) 12/12/2014 Zoster [...] encounter Miscellaneous Notes * Telephone Encounter - Leah Ramos RPh - 10/20/2023 10:48 AM EDTSigned Prescriptions: Disp Refills FLUoxetine HCl 20 MG Oral Capsule (PROzac) 180 Ca*3 Sig: Take 2Capsules by mouth in the morning.Authorizing Provider: LAINA MILLER User: LEAH RAMOS documented in this encounter Plan of Treatment Upcoming Encounters Date Type Department Care Team (Late st Contact Info) Description 11/22/2023 1:40 PM EDT Office Visit [facility] [address] [place] [address] Shawna Castro MD [address] [place] [address], [place] [address] 12/08/2023 10:10 AM EDT Office Visit [facility], [place] [address] [place] [facility] [place] [phone] Laina Miller DO [address] [facility], [place] [id number] Health Maintenance Due Date Last Done Comments [...] this encounter Medical Devices Implanted Type Area Preprint Analyst Device Identifier Shelf Expiration Date Model / Serial / Lot Lens Intraoc 23.0 - [id number] - [id number] Implanted:Qty: 1 on 01/14/2021 by Samy Warner MD at OR [facility] Right: Eye [employer] 09/14/2025 [id number] / [id number] / [id number] Lens Intraoc 23.0 - [id number] - [id number] Implanted:Qty: 1 on 01/28/2021 by Samy Warner MD at OR [facility] Left: Eye [employer]OM[employer] 11/14/2025 [id number] / [id number] / Percutaneous Extension 2201bun - [id number] - [id number] Implanted:Qty: 1 on 11/27/2022 by Maximus De La Rosa MD at OR [facility] N/A: Back [employer] 03/03/2025 9009 / [id number] / Kit Tined Lead - [id number] - [id number] Implanted:Qty: 1 on 11/27/2022 by Maximus De La Rosa MD at OR [facility] N/A: Back [employer] 06/08/2025 1201 / [id number] / Neurostim Non Rechargeable - [id number] - [id number] Implanted:Qty: 1 on 12/04/2022 by Maximus De La Rosa MD at OR [facility] Right: Back [employer] 04/14/2023 4101 / [id number] / documented as of this encounter Visit Diagnoses Diagnosis Depression with anxiety Dysthymic disorder documented in this encounter Advance Directives Documents on File Type Date Recorded Patient 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
--- OUTSIDE RECORDS SUMMARY | 2024-01-03 23:26 | External Medical Summary | Summary of Care ---
Author Name Unknown Organization [facility] Address [address] [place] [address] Phone [phone] Care Team Providers Care Hub Inventory Specialist Name Role Phone Laina Miller Primary Care Provider Reason for Visit * Reason Onset Date Comments Medication Refill 09/26/2023 Encounter Details Date Type Department Care Team (Late st Contact Info) Description 09/26/2023 Refill [facility] [address] [place] [address] Shikha Mckenna PA-C [address] [place] [address] Acquired hypothyroidism Allergies Active Allergy Reactions Criticality Noted Date Comments Gentamicin Sulfate 06/12/2004 eyes sore/red Penicillins 11/26/1999 Sulfa Antibiotics 11/26/1999 documented as of this encounter (statuses as of 09/29/2023) Medications Medication Sig Dispensed Refills Start Date End Date Status ASPIRIN 81 MG PO TABSIndications:HTN , goal below 130/80 one tab by mouth daily 0 0 0 Active GLUCOSAMINE CHONDROITIN COMPLX 500-400 MG PO TABS 1 TABLET DAILY 30 0 0 Active CALTRATE 600+D PLUS 600-400 MG-UNIT PO TABSIndications:Gen eralized osteoarthritis 1 TABLET TWICE DAILY WITH FOOD 1 Active LORATADINE 10 MG PO TABSIndications:All ergic rhinitis One pill by mouth once a day as needed for allergies 90 Tab 3 2 Active [place]-3 Krill Oil 500 MG CAPS Take 1 Cap by mouth daily. 4 Active ONETOUCH DELICA LANCETS 33G MISCIndications:Typ e 2 diabetes mellitus with hemoglobin A1c goal of less than 7.0% ([facility]) USE UP TO FOUR TIMES A DAY DIRECTED E11.9 200 Each 2 9 Active OneTouch Ultra In Vitro Strip (Glucose Blood)Indications:D M type 2, goal: symptom mgmt ([facility]) USE STRIP TO CHECK GLUCOSE 1 time DAILY. Dx Code: E11.9 100 Strip 3 1 Active Nitroglycerin 0.4 MG Sublingual Tablet Sublingual (Nitrostat)Indicati ons:Angina pectoris ([facility]) one tab under tongue as needed for chest pain maximum 3 doses 25 Tab 3 1 Active Probiotic Acidophilus BioBeads Oral Capsule Take by mouth 1 Capsule in the morning. Active Famotidine 20 MG Oral Tablet (Pepcid)Indications :GERD (gastroesophageal reflux disease) Take by mouth 1 Tablet in the morning AND 1 Tablet before bedtime. 180 Tablet 1 2 Active FLUoxetine HCl 20 MG Oral Capsule (PROzac)Indications :Depression with anxiety Take 2 Capsules by mouth in the morning. 180 Capsule 3 3 Active Mirtazapine 15 MG Oral Tablet (Remeron) Take 1 Tablet by mouth at bedtime. 90 Tablet 3 3 Active Ibuprofen 800 MG Oral Tablet (Motrin) Take 1 Tablet by mouth every 8 hours as needed for Pain, Severe. Alternate with Acetaminophen 20 Tablet 3 Active Pantoprazole Sodium 40 MG Oral Tablet Delayed Release (Protonix)Indicatio ns:Gastroesophageal reflux disease, unspecified whether esophagitis present TAKE 1 TABLET BY MOUTH ONCE DAILY IN THE MORNING 90 Tablet 2 3 Active Atorvastatin Calcium 40 MG Oral Tablet (Lipitor)Indication s:Dyslipidemia, goal LDL below 100 Take 1 Tablet by mouth daily. 90 Tablet 3 4 Active Lisinopril 2.5 MG Oral Tablet (Prinivil)Indicatio ns:HTN, goal below 140/90 TAKE 1 TABLET BY MOUTH IN THE MORNING 90 Tablet 3 4 Active Metoprolol Succinate ER 25 MG Oral Tablet Extended Release 24 Hour (Toprol XL)Indications:SVT (supraventricular tachycardia) (HCC) Take 1 Tablet by mouth in the morning. 90 Tablet 3 4 Active Dicyclomine HCl 10 MG Oral Capsule (Bentyl) Take 1 Capsule by mouth 4 times a day as needed for Diarrhea. For abdominal pain 120 Capsule 11 4 Active Azithromycin 250 MG Oral Tablet (Zithromax Z-Miles) Take two tablets by mouth on first day, then 1 tablet daily until gone 6 Tablet 4 Active Levothyroxine Sodium 75 MCG Oral Tablet (Levoxyl)Indication s:Acquired hypothyroidism TAKE 1/2 (ONE-HALF) TABLET BY MOUTH IN THE MORNING AT LEAST 30 MINUTES PRIOR TO BREAKFAST OR OTHER MEDS 45 Tablet 4 Active Levothyroxine Sodium 75 MCG Oral Tablet (Levoxyl)Indication s:Acquired hypothyroidism TAKE 1/2 (ONE-HALF) TABLET BY MOUTH IN THE MORNING AT LEAST 30 MINUTES PRIOR TO BREAKFAST OR OTHER MEDS 45 Tablet 3 3 09/26/19 24 Discontinu ed(Refill) documented as of this encounter (statuses as of 09/29/2023) Active Problems Problem Noted Date Diagnosed Date [...] as of this encounter (statuses as of 09/29/2023) Resolved Problems Problem Noted Date Diagnosed Date [...] within last 8 weeks 06/04/2017 Overview: 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 documented as of this encounter (statuses as of 09/29/2023) Immunizations Name Administration Dates Next Due COVID-19 [...] lent, No Preserve, IM 10/28/2016,11/11/2015 Seasonal Influenza, Split, I IV3, With Preserve, Inj 10/18/2014,11/06/2013,12/23/2012,11/18,11/07/2010,12/02/2009,11/22/2008 ,02/01/2008,12/03/2006,12/18/2005,11/04/2005 TDAP (age 10 and older)(Boostrix) 12/12/2014 Zoster Vaccine Recombinant (Shingrix) 02/27/2023 ,11/11/2022 documented as of this encounter Social History Tobacco Use Types Packs/Day Years Used Date Smoking Tobacco: Never Smokeless Tobacco: Never Alcohol Use Standard Drinks/Week Comments No 0 (1 standard drink = 0.6 oz pur e alcohol) PHQ-2 Answer Date Recorded PHQ Adult Total [...] * Telephone Encounter - Ronen Lawrence - 09/29/2023 7:49 PM EDT Received message from [facility] regarding patient needing labs. Patient was notified. Successfully contacted patient and provided [facility] message. * Telephone Encounter - Samantha Mckeon [facility] - 09/28/2023 10:20 AM EDTSigned Prescriptions: Disp Refills Levothyroxine Sodium 75 MCG Oral Tablet (L*45 Tab*0 Sig: TAKE 1/2 (ONE-HALF) TABLET BY MOUTH IN THE MORNING AT LEAST 30 MINUTES PRIOR TO BREAKFAST OR OTHER MEDS Authorizing Provider: LAINA MILLER Ordering User: SAMANTHA MCKEON * Telephone Encounter - Samantha Mckeon RPh - 09/28/2023 10:19 AM EDT Provided 90 days supply with 0 refill(s). Per refill protocol patient should have TSH on file within past year. Reviewed AMP report, Care Gaps/Health Maintenance, medications list, and for any routine labs typically ordered for this patient. Lab orders placed. Please contact patient to advise of labs ordered for blood draw. Fasting is not required. Advise toobtain labs before requesting the next refill. Thank you, Samantha Mckeon, PharmD Clinical Pharmacist [facility] [phone] 09/28/2023, 10:19 AM documented in this encounter Plan of Treatment Upcoming Encounters Date Type Department Care Team (Late st Contact Info) Description 11/22/2023 1:40 PM EDT Office Visit [facility], [facility] [address] [facility] [place] [address] Shawna Castro MD [address] [place] [place] [address] 12/08/2023 10:10 AM EDT Office Visit [facility] [address] [place] [address] Laina Miller DO [address] [place] [address] Scheduled Orders Name Type Priority Associated Diagnoses Orde r Schedule TSH WITH FREE T4 IF INDICATED Lab Routine Acquired hypothyroidism Expected: 10/05/2023 (Approximate), Expires: 09/27/2024 Health Maintenance Due Date Last Done Comments DXA Scan 07/20/2018 07/21/2011, 06/0 06/2011, 09/05/2007, Additional history exists Adult Wellness Visit 08/30/2020 08/31/2019 Depression Monitoring 01/01/2022 01/01/2021 COVID-19 Vaccine (3 2022-2 4 season) 2022 05/15/2020, 04/10/2020 TSH 07/21/2023 07/20/2022, 09/16, 10/12/2020, Additional history exists Influenza Vaccine (FLU shot) (#1) 2023 11/11/2022, 04/02/2022, 10/19/2019, Additional history exists Zoster Vaccines Completed 02/27/2023, 11/11/2022 documented as of this encounter Medical Devices Implanted Type Area Product Marketing Manager Device Identifier Shelf Expiration Date Model / Serial / Lot Lens Intraoc 23.0 - [id number] - [id number] Implanted:Qty: 1 on 01/14/2021 by Samy Warner MD at OR [facility] Right: Eye [employer]OMB 09/14/2025 [id number] / [id number] / [id number] Lens Intraoc 23.0 - [id number] - [id number] Implanted:Qty: 1 on 01/28/2021 by Samy Warner MD at OR [facility] Left: Eye [employer]OMB 11/14/2025 [id number] / [id number] / Percutaneous Extension 2201bun - [id number] - [id number] Implanted:Qty: 1 on 11/27/2022 by Maximus De La Rosa MD at OR [facility] N/A: Back [employer] 03/03/2025 9009 / [id number] / Kit Tined Lead - [id number] - [id number] Implanted:Qty: 1 on 11/27/2022 by Maximus De La Rosa MD at OR [facility] N/A: Back [employer] 06/08/2025 1201 / [id number] / Neurostim Non Rechargeable - [id number] - [id number] Implanted:Qty: 1 on 12/04/2022 by Maximus De La Rosa MD at OR [facility] Right: Back [employer] 04/14/2023 4101 / [id number] / documented as of this encounter Visit Diagnoses Diagnosis Acquired hypothyroidism Unspecified hypothyroidism documented in this encounter Advance Directives Documents on File Type Date Recorded 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
--- OUTSIDE RECORDS SUMMARY | 2024-01-03 23:26 | External Medical Summary | Summary of Care ---
Author Name Unknown Organization [facility] Address [address] [place] [address] Phone [phone] Care Team Providers Care Collision Worker Name Role Phone SarahLinda levi Primary Care Provider + [phone] Reason for Referral * Evaluate & Treat - Unlimited Visits (Within 10 days (routine)) - Authorized Specialty Diagnoses / Procedures Referred By Timi akins Referred To Contact Physical Therapy / Physical Medicine And Rehab Diagnoses Acute pain of right knee Robinson Bynum MD [address] [place] [address] Referral ID Status Reason Start Date Expiration Date Visits Requested Visits Authorized [id number] Authorized Specialty Services Required 10/05/2023 999 999 Question Answer Referral Priority Within 10 days (routine) Where should this appointment be scheduled? [facility] Comments S/p r tka, right knee pain Reason for Visit * Reason Comments Acute Patient is here toda y due to right knee pain. Patient states she has been working on moving out of an apartment and has been using her legs to push items and since then is having discomfort. Patient states she has had the right knee fully replaced, she feels as there may have been some movement in the knee. Patient states she has used an over the counter gel on her knee and leg and it did give her some relief. Encounter Details Date Type Department Care Team ([facility] st Contact Info) Description 10/05/2023 8:40 AM EDT Office Visit [facility] [address] [place] [address] MayRobinsno MD [address] [place] [address] Acute pain of right knee*; HTN, goal below 140/90; Type 2 diabetes mellitus with stage 3a chronic kidney disease, without long-term current use of insulin ([facility]) Allergies Active Allergy Reactions Criticality Noted Date Comments Gentamicin Sulfate 06/12/2004 eyes sore/red Penicillins 11/26/1999 Sulfa Antibiotics 11/26/1999 documented as of this encounter (statuses as of 10/05/2023) Medications Medication Sig Dispensed Refills Start Date [...] for allergies 90 Tab 3 2 Active [place]-3 Krill Oil 500 MG CAPS Take 1 Cap by mouth daily. 4 Active ONETOUCH DELICA LANCETS 33G MISCIndications:Typ e 2 diabetes mellitus with hemoglobin A1c goal of less than 7.0% ([facility]) USE UP TO FOUR TIMES A DAY DIRECTED E11.9 200 Each 2 9 Active OneTouch Ultra In Vitro Strip (Glucose Blood)Indications:D M type 2, goal: symptom mgmt ([facility]) USE STRIP TO CHECK GLUCOSE 1 time DAILY. Dx Code: E11.9 100 Strip 3 1 Active Nitroglycerin 0.4 MG Sublingual Tablet Sublingual (Nitrostat)Indicati ons:Angina pectoris ([facility]) one tab under tongue [...] abdominal pain 120 Capsule 11 4 Active Levothyroxine Sodium 75 MCG Oral Tablet (Levoxyl)Indication s:Acquired hypothyroidism TAKE 1/2 (ONE-HALF) TABLET BY MOUTH IN THE MORNING AT LEAST 30 MINUTES PRIOR TO BREAKFAST OR OTHER MEDS 45 Tablet 4 Active Azithromycin 250 MG Oral Tablet (Zithromax Z-Miles) Take two tablets by mouth on first day, then 1 tablet daily until gone 6 Tablet 4 10/05/19 24 Discontinu ed(Medicat ion List Clean Up) documented as of this encounter (statuses as of 10/05/2023) Active Problems Problem Noted Date Diagnosed Date [...] as of this encounter (statuses as of 10/05/2023) Resolved Problems Problem Noted Date Diagnosed Date [...] as of this encounter (statuses as of 10/05/2023) Immunizations Name Administration Dates Next Due COVID-19 [...] Sign Reading Time Taken Comments Blood Pressure 136/72 10/05/2023 8:19 AM EDT Pulse 64 10/05/2023 8:19 AM EDT Temperature 35.9 C (96.7 F) 10/05/2023 8:19 AM ED T Respiratory Rate 16 10/05/2023 8:19 AM EDT Oxygen Saturation - - Inhaled Oxygen Concentration - - Weight 75.7 kg (166 lb 14.4 oz) 10/05/2023 8:19 AM EDT Height 149.9 cm (4' 11") 10/05/2023 8:19 AM EDT Body Mass Index 33.71 10/05/2023 8:19 AM EDT documented in this encounter Progress Notes * Robinson Bynum MD - 10/05/2023 8:25 AM EDT Images from the original note were not included. Assessment and Plan 1. Acute pain of right knee Recommend supportive care with tylenol, heat/ice, voltaren gel. Patient agreeable to PT. If no improvement after work with PT refer to sports medicine. - PHYSICAL THERAPY REFERRAL OP 2. HTN, goal below 140/90 BP at goal 136/72. Avoid ibuprofen for pain control given CKD3 and HTN. 3. Type 2 diabetes mellitus with stage 3a chronic kidney disease, without long- term current use of insulin (HCC) A1C 6.1. Diet controlled. Wrap-Up Follow up as needed. History of Present Illness The patient is an 83 year old female with past medical history of type 2 diabetes, hypothyroidism, dyslipidemia, CKD3a, LBBB, HTN, history of right TKA who presents for acute. Patient presents due to 3 weeks of right knee pain. History of right TKA in 2010. Was moving boxes around in a trailer while seated using her knees to push so she did not have to lift. Since that time has had pain inferior to the patella and on the posterolateral knee. Using otc cream she is not sure the name of. No falls. Has difficulty bending to go up the steps. Overall improving. Physical Exam Vitals: 10/05/23 0819 Temp: 35.9 C (96.7 F) Pulse: 64 Resp: 16 BP: 136/72 BMI: 33.69 Physical Exam Physical Exam Vitals reviewed. Constitutional: General: She is not in acute distress. Musculoskeletal: Comments: Right knee without effusion or erythema. Scar from prior TKA present. Full active and passive ROM. Mild pain to palpation over the joint line. 5/5 strength of the lower extremities. Neurological: Mental Status: She is alert. I spent a total of 30-39 minutes (exact time 30 mins) on the date of service in preparation, delivery, and documentation of the care provided to Shruti Suarez excluding any time spent in the performance of separately billed services or time spent by another provider/QHP. This note has been completed in part utilizing [employer] Speech Voice Recognition Software. Due to technical limitations of the software, grammatical errors, random word insertions, prounoun errors, and incomplete sentences may occur. Any formal questions or concerns about the content, text, or information contained within the body of this dictation should be directly addressed to the provider for clarification. documented in this encounter Nursing Notes * Brenda Abreu LPN - 10/05/2023 8:24 AM EDT The patient has been properly identified by confirmation of name and date of . Chief Complaint Patient presents with Acute Patient is here today due to right knee pain. Patient states she has been working on moving out of an apartment and has been using her legs to push items and since then is having discomfort. Patient states she has had the right knee fully replaced, she feels as there may have been some movement in the knee. Patient states she has used an over the counter gel on her knee and leg and it did give her some relief. documented in this encounter Plan of Treatment Upcoming Encounters Date Type Department Care Team (Late st Contact Info) Description 11/22/2023 1:40 PM EDT Office Visit [facility] [address] [place], [place] [address] Shawna Castro MD [address] [place] [address] 12/08/2023 10:10 AM EDT Office Visit [facility] [address] [place] [facility] [place] [address] Linda Lozano DO [address] [place] [address] Scheduled Referrals Name Type Priority Associated Diagnoses Orde r Schedule PHYSICAL THERAPY REFERRAL OP Referral Within 10 days (routine) Acute pain of right knee Ordered: 10/05/2023 Health Maintenance Due Date Last Done Comments DXA Scan 07/20/2018 07/21/2011, 06/2011, 09/05/2007, Additional history exists Adult Wellness Visit 08/30/2020 08/31/2019 COVID-19 Vaccine (2022-2 4 season) 2022 05/15/2020, 04/10/2020 TSH 07/21/2023 07/20/2022, 09/16, 10/12/2020, Additional history exists Influenza Vaccine (FLU shot) (#1) 2023 11/11/2022, 04/02/2022, 10/19/2019, Additional history exists Depression Monitoring 10/04/2024 10/05/2023, 021 Zoster Vaccines Completed 02/27/2023, 11/11/2022 documented as of this encounter Medical Devices Implanted Type Area Barber Shop Manager Device Identifier Shelf Expiration Date Model / Serial / Lot Lens Intraoc 23.0 - [id number] - [id number] Implanted:Qty: 1 on 01/14/2021 by Samy Warner MD at OR [facility] Right: Eye BAUSCH [employer] LOMB 09/14/2025 [id number] / [id number] / [id number] Lens Intraoc 23.0 - [id number] - [id number] Implanted:Qty: 1 on 01/28/2021 by Samy Warner MD at OR [facility] Left: Eye BAUSCH [employer] LOMB 11/14/2025 [id number] / [id number] / Percutaneous Extension 2201bun - [id number] - [id number] Implanted:Qty: 1 on 11/27/2022 by Maximus De aL Rosa MD at OR [facility] N/A: Back [employer] 03/03/2025 9009 / [id number] / Kit Tined Lead - [id number] - [id number] Implanted:Qty: 1 on 11/27/2022 by Maximus De La Rosa MD at OR [facility] N/A: Back [employer] 06/08/2025 1201 / [id number] / Neurostim Non Rechargeable - [id number] - [id number] Implanted:Qty: 1 on 12/04/2022 by Maximus De La Rosa MD at OR [facility] Right: Back [employer] 04/14/2023 4101 / [id number] / documented as of this encounter Visit Diagnoses Diagnosis Acute pain of right knee- Primary HTN, goal below 140/90 Unspecified essential hypertension Type 2 diabetes mellitus with stage 3a chronic kidney disease, without long-term current use of insulin (HCC) documented in this encounter Advance Directives Documents on File Type Date Recorded Patient Claims Adjustor Expl anation Advance Directives and Living Will 04/22/2020 ADVANCE DIRECTIVE / LIVING WILL Advance Directives and Living Will 04/22/2020 ADVANCE DIRECTIVE / LIVING WILL (WITH NOTARY SIGNATURE) Power of Roofer Metal 04/22/2020 POWER OF A TTORNEY - DURABLE HEALTH CARE Power of Roofer Metal 04/22/2020 POWER OF A TTORNEY - DURABLE [...] Advance Directives occurred with: Patient Care Teams Collision Worker Relationship Specialty Start Date End Date Linda Lozano DO [address] [place] [address] PCP - General Family Medicine 03/23/22 documented as of this encounter
--- OUTSIDE RECORDS SUMMARY | 2024-01-03 23:26 | External Medical Summary | Summary of Care ---
Author Name Unknown Organization [facility] Address [address] [place] [address] Phone [phone] Care Team Providers Care Test Kitchen Home Economist Name Role Phone Linda Lozano DO Primary Care Provider Reason for Visit * Reason Onset Date Comments Health Maintenance 08/06/2023 Encounter Details Date Type Department Care Team (Late st Contact Info) Description 08/06/2023 Telephone [place] [address] [place] [address] Linda Lozano DO [address] [place] [address] Health Maintenance Allergies Active Allergy Reactions Criticality Noted Date Comments Gentamicin Sulfate 06/12/2004 eyes sore/red Penicillins 11/26/1999 Sulfa Antibiotics 11/26/1999 documented as of this encounter (statuses as of 08/06/2023) Medications Medication Sig Dispensed Refills Start Date End Date Status ASPIRIN 81 MG PO TABSIndications:HTN , goal below 130/80 one tab by mouth daily 0 0 06/27/2009 Active GLUCOSAMINE CHONDROITIN COMPLX 500-400 MG PO TABS 1 TABLET DAILY 30 0 06/27/2009 Active CALTRATE 600+D PLUS 600-400 MG-UNIT PO TABSIndications:Gen eralized osteoarthritis 1 TABLET TWICE DAILY WITH FOOD 06/26/2010 Active LORATADINE 10 MG PO TABSIndications:All ergic rhinitis One pill by mouth once a day as needed for allergies 90 Tab 3 07/03/2011 Active [place]-3 Krill Oil 500 MG CAPS Take 1 Cap by mouth daily. 10/04/2013 Active ONETOUCH CARLOS MCINTYRE 33G MISCIndications:Typ e 2 diabetes mellitus with hemoglobin A1c goal of less than 7.0% ([facility]) USE UP TO FOUR TIMES A DAY DIRECTED E11.9 200 Each 2 07/07/2018 Active OneTouch Ultra In Vitro Strip (Glucose Blood)Indications:D M type 2, goal: symptom mgmt ([facility]) USE STRIP TO CHECK GLUCOSE 1 time DAILY. Dx Code: E11.9 100 Strip 3 03/21/2020 Active Nitroglycerin 0.4 MG Sublingual Tablet Sublingual (Nitrostat)Indicati ons:Angina pectoris ([facility]) one tab under tongue as needed for chest pain maximum 3 doses 25 Tab 3 11/08/2020 Active Probiotic Acidophilus BioBeads Oral Capsule Take by mouth 1 Capsule in the morning. Active Famotidine 20 MG Oral Tablet (Pepcid)Indications :GERD (gastroesophageal reflux disease) Take by mouth 1 Tablet in the morning AND 1 Tablet before bedtime. 180 Tablet 1 07/01/2021 Active Levothyroxine Sodium 75 MCG Oral Tablet (Levoxyl)Indication s:Acquired hypothyroidism TAKE 1/2 (ONE-HALF) TABLET BY MOUTH IN THE MORNING AT LEAST 30 MINUTES PRIOR TO BREAKFAST OR OTHER MEDS 45 Tablet 3 10/01/2022 Active FLUoxetine HCl 20 MG Oral Capsule (PROzac)Indications :Depression with anxiety Take 2 Capsules by mouth in the morning. 180 Capsule 3 11/09/2022 Active Mirtazapine 15 MG Oral Tablet (Remeron) Take 1 Tablet by mouth at bedtime. 90 Tablet 3 11/09/2022 Active Ibuprofen 800 MG Oral Tablet (Motrin) Take 1 Tablet by mouth every 8 hours as needed for Pain, Severe. Alternate with Acetaminophen 20 Tablet 11/27/2022 Active Pantoprazole Sodium 40 MG Oral Tablet Delayed Release (Protonix)Indicatio ns:Gastroesophageal reflux disease, unspecified whether esophagitis present TAKE 1 TABLET BY MOUTH ONCE DAILY IN THE MORNING 90 Tablet 2 01/11/2023 Active Atorvastatin Calcium 40 MG Oral Tablet (Lipitor)Indication s:Dyslipidemia, goal LDL below 100 Take 1 Tablet by mouth daily. 90 Tablet 3 03/08/2023 Active Lisinopril 2.5 MG Oral Tablet (Prinivil)Indicatio ns:HTN, goal below 140/90 TAKE 1 TABLET BY MOUTH IN THE MORNING 90 Tablet 3 03/08/2023 Active Metoprolol Succinate ER 25 MG Oral Tablet Extended Release 24 Hour (Toprol XL)Indications:SVT (supraventricular tachycardia) (HCC) Take 1 Tablet by mouth in the morning. 90 Tablet 3 05/14/2023 Active Dicyclomine HCl 10 MG Oral Capsule (Bentyl) Take 1 Capsule by mouth 4 times a day as needed for Diarrhea. For abdominal pain 120 Capsule 11 05/31/2023 Active Azithromycin 250 MG Oral Tablet (Zithromax Z-Miles) Take two tablets by mouth on first day, then 1 tablet daily until gone 6 Tablet 06/11/2023 Active documented as of this encounter (statuses as of 08/06/2023) Active Problems Problem Noted Date Diagnosed Date [...] as of this encounter (statuses as of 08/06/2023) Resolved Problems Problem Noted Date Diagnosed Date [...] as of this encounter (statuses as of 08/06/2023) Immunizations Name Administration Dates Next Due COVID-19 [...] Split, I IV3, With Preserve, Inj 10/18/2014,11/06/2013,12/23/2012,11/18,11/07/2010,12/02/2009,11/22/2008 ,02/01/2008,12/03/2006,12/18/2005,04/2005 TDAP (age 10 and older)(Boostrix) [...] encounter Miscellaneous Notes * Telephone Encounter - Malorie Chacon LPN - 08/06/2023 10:22 AM EDT Care Gaps Comprehensive Care Outreach Last Office/Telemedicine Visit: 05/31/2023 (in office), 09/26/2020 (telemedicine) Next Office Visit: 12/08/2023 Hemoglobin AIC Results: Lab Results Component Value Date/Time HEMOGLOBIN A1C - [facility] 6.1 (H) 05/31/2023 01:09 PM HEMOGLOBIN A1C - [facility] 6.2 (H) 07/20/2022 10:08 AM HEMOGLOBIN A1C - [facility] 5.9 (H) 11/04/2020 02:50 PM HEMOGLOBIN A1C - [facility] 5.7 (H) 12/30/2018 11:05 AM HEMOGLOBIN A1C - [facility] 5.7 (H) 07/08/2018 10:06 AM HEMOGLOBIN A1C - [facility] 5.5 01/03/2018 10:15 AM BP Readings from Last 1 Encounters: 05/31/23 112/60 Reviewed Health Maintenance below: Health Maintenance Topic Date Due DXA Scan 07/20/2018 Depression Monitoring 01/01/2022 COVID-19 Vaccine ( season) 2022 TSH 07/21/2023 awv Lab dexa Care Gap Outreach Action Taken: Left message documented in this encounter Plan of Treatment Upcoming Encounters Date Type Department Care Team (Late st Contact Info) Description 11/22/2023 1:40 PM EDT Office Visit Nephrology, [place] [address] [facility] [place] [address] Shawna Castro MD [address] [place] [address] 12/08/2023 10:10 AM EDT Office Visit [facility] [address] [place] [phone] Linda Lozano DO [address] [place] [address] Health Maintenance Due Date Last Done Comments DXA Scan 07/20/2018 07/21/2011, 06/2011, 09/05/2007, Additional history exists Depression Monitoring 01/01/2022 01/01/2021 COVID-19 Vaccine (2022-2 4 season) 2022 05/15/2020, 04/10/2020 TSH 07/21/2023 07/20/2022, 09/16, 10/12/2020, Additional history exists Influenza Vaccine (FLU shot) Completed , 04/02/2022, 10/19/2019, Additional history exists Zoster Vaccines Completed 02/27/2023, 11/11/2022 documented as of this encounter Medical Devices Implanted Type Area Dinkey Driver Device Identifier Shelf Expiration Date Model / Serial / Lot Lens Intraoc 23.0 - [id number] - [id number] Implanted:Qty: 1 on 01/14/2021 by Samy Warner MD at [facility] Right: Eye [employer]OMB 09/14/2025 [id number] / [id number] / [id number] Lens Intraoc 23.0 - [id number] - [id number] Implanted:Qty: 1 on 01/28/2021 by Samy Warner MD at OR [facility] Left: Eye BA[employer]CH [employer] LOMB 11/14/2025 [id number] / [id number] / Percutaneous Extension 2201bun - [id number] - [id number] Implanted:Qty: 1 on 11/27/2022 by Maximus De La Rosa MD at OR [facility] N/A: Back [employer] 03/03/2025 9009 / [id number] / Kit Tined Lead - [id number] - [id number] Implanted:Qty: 1 on 11/27/2022 by Maximus De La Rosa MD at OR [facility] N/A: Back [employer] 06/08/2025 1201 / [id number] / Neurostim Non Rechargeable - [id number] - [id number] Implanted:Qty: 1 on 12/04/2022 by Maximus De La Rosa MD at OR [facility] Right: Back [employer] 04/14/2023 4101 / [id number] / documented as of this encounter Advance Directives Documents on File Type Date Recorded Patient Slag Production Worker Expl anation Advance Directives and Living Will 04/22/2020 ADVANCE DIRECTIVE / LIVING WILL Advance Directives and Living Will 04/22/2020 ADVANCE DIRECTIVE / LIVING WILL (WITH NOTARY SIGNATURE) Power of Thermometer Maker 04/22/2020 POWER OF A TTORNEY - DURABLE HEALTH CARE Power of Thermometer Maker 04/22/2020 POWER OF A TTORNEY - DURABLE [...] Advance Directives occurred with: Patient Care Teams Test Kitchen Home Economist Relationship Specialty Start Date End Date Linda Lozano DO [address], [place] [id number] PCP - General Family Medicine 03/23/22 documented as of this encounter
--- OUTSIDE RECORDS SUMMARY | 2024-01-03 23:26 | External Medical Summary | Summary of Care ---
Author Name Unknown Organization [facility] Address [address] [place] [address] Phone [phone] Care Team Providers Care Tractor Mechanic Name Role Phone Linda Lozano Primary Care Provider Reason for Visit * Reason Onset Date Comments Appointment 09/08/2023 Encounter Details Date Type Department Care Team (Late st Contact Info) Description 09/08/2023 Telephone Care at Home [address] [place] [address] Services, Scheduling [address] [place] [address] Appointment Allergies Active Allergy Reactions Criticality Noted Date Comments Gentamicin Sulfate 06/12/2004 eyes sore/red Penicillins 11/26/1999 Sulfa Antibiotics 11/26/1999 documented as of this encounter (statuses as of 09/08/2023) Medications Medication Sig Dispensed Refills Start Date [...] for allergies 90 Tab 3 07/03/2011 Active [place]-3 Krill Oil 500 MG CAPS Take 1 Cap by mouth daily. 10/04/2013 Active ONETOUCH CARLOS MCINTYRE 33G MISCIndications:Typ e 2 diabetes mellitus with hemoglobin A1c goal of less than 7.0% ([facility]) USE UP TO FOUR TIMES A DAY DIRECTED E11.9 200 Each 2 07/07/2018 Active OneTouch Ultra In Vitro Strip (Glucose Blood)Indications:D M type 2, goal: symptom mgmt ([facility]) USE STRIP TO CHECK GLUCOSE 1 time DAILY. Dx Code: E11.9 100 Strip 3 03/21/2020 Active Nitroglycerin 0.4 MG Sublingual Tablet Sublingual (Nitrostat)Indicati ons:Angina pectoris ([facility]) one tab [...] as of this encounter (statuses as of 09/08/2023) Active Problems Problem Noted Date Diagnosed Date [...] as of this encounter (statuses as of 09/08/2023) Resolved Problems Problem Noted Date Diagnosed Date [...] as of this encounter (statuses as of 09/08/2023) Immunizations Name Administration Dates Next Due COVID-19 [...] Split, I IV3, With Preserve, Inj 10/18/2014,11/06/2013,12/23/2012,11/18,11/07/2010,12/02/2009,11/22/2008 ,02/01/2008,12/03/2006,12/18/2005, 04/2005 TDAP (age 10 and older)(Boostrix) 12/12/2014 Zoster [...] encounter Miscellaneous Notes * Telephone Encounter - Maye Dixon OSA - 09/08/2023 9:15 AM EDT Care At Home Outreach Call attempt: 1st Call Call result: Call Unsuccessful - Left a voice mail Looking to schedule Awv with Janna HERNANDEZ_C Can offer: HV 10/05/23 or 10/11/23 Provided a call back number of [phone]. GIULIANO Rodriguez documented in this encounter Plan of Treatment Upcoming Encounters Date Type Department Care Team (Late st Contact Info) Description 11/22/2023 1:40 PM EDT Office Visit Nephrology, [facility] [place] [address] [place] [address] Shawna Castro MD [address] [facility] [place] [address] 12/08/2023 10:10 AM EDT Office Visit [facility] [address] [place] [phone] Linda Lozano DO [address] [place] [address] Health Maintenance Due Date Last Done Comments DXA Scan 07/20/2018 07/21/2011, 06/0 06/2011, 09/05/2007, Additional history exists Depression Monitoring 01/01/2022 01/01/2021 COVID-19 Vaccine (3 2022-2 4 season) 2022 05/15/2020, 04/10/2020 TSH 07/21/2023 07/20/2022, 09/16, 10/12/2020, Additional history exists Influenza Vaccine (FLU shot) (#1) 2023 11/11/2022, 04/02/2022, 10/19/2019, Additional history exists Zoster Vaccines Completed 02/27/2023, 11/11/2022 documented as of this encounter Medical Devices Implanted Type Area Regional Project Manager Device Identifier Shelf Expiration Date Model / Serial / Lot Lens Intraoc 23.0 - [id number] - [id number] Implanted:Qty: 1 on 01/14/2021 by Samy Warner MD at OR [facility] Right: Eye [employer]OM[employer] 09/14/2025 [id number] / [id number] / [id number] Lens Intraoc 23.0 - [id number] - [id number] Implanted:Qty: 1 on 01/28/2021 by Samy Warner MD at [facility] Left: Eye BAUSCH [employer] LOMB 11/14/2025 [id number] / [id number] / Percutaneous Extension 2201bun - [id number] - [id number] Implanted:Qty: 1 on 11/27/2022 by Maximus De La Rosa MD at OR [facility] N/A: Back [employer] 03/03/2025 9009 / [id number] / Kit Tined Lead - [id number] - [id number] Implanted:Qty: 1 on 11/27/2022 by Maximus De La Rosa MD at OR [facility] N/A: Back [employer] 06/08/2025 1201 / [id number] / Neurostim Non Rechargeable - [id number] - [id number] Implanted:Qty: 1 on 12/04/2022 by Maximus De La Rosa MD at OR [facility] Right: Back [employer] 04/14/2023 4101 / [id number] / documented as of this encounter Advance Directives Documents on File Type Date Recorded Patient Sales Agent Pest Control Service Expl anation Advance Directives and Living Will 04/22/2020 ADVANCE DIRECTIVE / LIVING WILL Advance Directives and Living Will 04/22/2020 ADVANCE DIRECTIVE / LIVING WILL (WITH NOTARY SIGNATURE) Power of Oil Tank Car Cleaner 04/22/2020 POWER OF A TTORNEY - DURABLE HEALTH CARE Power of Oil Tank Car Cleaner 04/22/2020 POWER OF A TTORNEY - DURABLE [...] Advance Directives occurred with: Patient Care Teams Tractor Mechanic Relationship Specialty Start Date End Date Linda Lozano DO [address] [place] [address] PCP - General Family Medicine 03/23/22 documented as of this encounter
[2024-01-04] MEDS: LEVOTHYROXINE SODIUM 75 MCG TABLET PO SCH (04:36)
[2024-01-04 06:20] LABS: Hematocrit (blood only) 38.4 % (37.0-47.0); Hemoglobin 12.7 g/dl (12.0-16.0); Mean Corpuscular Hgb Conc 33.1 g/dL (32.0-36.0); Mean Corpuscular Volume 90.8 fL (80.0-100.0); Mean Platelet Volume 10.2 fL (9.4-12.4); Platelet Count 193 K/uL (130-400); RDW Coefficient of Variation 13.2 % (11.5-14.5); RDW Standard Deviation 44.1 fL (36.4-46.3); Red Blood Count 4.23 M/uL (4.20-5.40); White Blood Count 7.07 K/ul (4.8-10.8)
[2024-01-04 06:35] LABS: Albumin Globulin Ratio 1.2 (0.9-2); Albumin Level 3.3 gm/dl (3.4-5.0); BUN Creatinine Ratio 15.5 (10-20); Bilirubin,Total 0.8 mg/dl (0.2-1.0); Calcium 9.2 mg/dl (8.6-10.3); Chol HDL Ratio 3.9 (0-5); Creatinine Clr Calc Pharmacy 33.5 ml/min; Globulin 2.8 gm/dl (2.5-4.0); Magnesium 1.7 mg/dl (1.7-2.4); Potassium 4.7 mmol/L (3.5-5.1); Total Protein 6.1 gm/dl (6.0-8.3)
[2024-01-04 06:48] LABS: Thyroid Stimulating Hormone 4.507 uIu/ml (0.300-4.500)
[2024-01-04 07:23] LABS: T4 Free Thyroxine 0.96 ng/dl (0.61-1.60)
[2024-01-04 07:49] VITALS: O2SAT 95
[2024-01-04] MEDS: ASPIRIN 81 MG ECTAB PO SCH (08:17)
[2024-01-04] MEDS: lisinopril 2.5 MG TAB PO SCH (08:17)
[2024-01-04] MEDS: FLUoxetine HCL 20 MG CAP PO SCH (08:17)
[2024-01-04] MEDS: PANTOprazole 40 MG TAB PO SCH (08:18)
--- NOTE | 2024-01-04 08:36 | Electrocardiogram Report ---
Test Reason : Blood Pressure : */* mmHG Vent. Rate : 62 BPM Atrial Rate : 62 BPM P-R Int : 178 ms QRS Dur : 118 ms QT Int : 484 ms P-R-T Axes : 21 -17 46 degrees QTcB Int : 491 ms Poor data quality, interpretation may be adversely affected Normal sinus rhythm Left bundle branch block Abnormal ECG When compared with ECG of 03-Jan-2024 13:12, Significant artifact is now present Confirmed by Gerber Patton ([id number]) on 01/04/2024 8:35:54 AM Referred By: REFERRED SELF Confirmed By: Gerber Patton
--- NOTE | 2024-01-04 08:44 | Cardiology Consultation ---
Date of Consultation January 04, 2024 Assessment & Plan (1) Chest pain at rest: (2) NIELSEN (dyspnea on exertion): (3) LBBB (left bundle branch block): (4) High blood pressure: (5) Dyslipidemia, goal LDL below 70: (6) Raynaud disease: Plan 83-year-old female admitted with atypical chest pain. EKG nondiagnostic, chronically with left bundle branch block. High-sensitivity troponin negative x 3. Chest x-ray without acute cardiopulmonary findings. Recommend referral for resting echocardiography and Lexiscan nuclear stress testing noting atypical chest pain, exertional dyspnea, chronic left bundle branch block, multiple cardiac risk factors. Blood pressure is notably mildly elevated throughout hospitalization (132/64 - 168/71). Agree with resumption/retrial of lisinopril. Continue beta-kyara, aspirin, statin, risk factor, lifestyle modification. Supervising Physician Co-Signing Physician Notes Attending attestation: Patient seen during nuclear stress test and again in follow up at 16:03. Case reviewed with the advanced practitioner. I have personally performed a history and physical examination on the patient. I have reviewed the advanced practitioner's documentation on the date of service referenced in note, and I agree with, and take responsibility for the plan of care. Subjective: No additional chest pain Exam: CV: regular rhythm, no murmurs Data: Nuclear stress test revealed normal perfusion, LVEF by gated SPECT technique greater than 70% Stress EKG response equivocal due to the presence of the underlying chronic left bundle branch block Echocardiogram performed today 01/04/2024: Mild concentric left ventricular hypertrophy Abnormal septal motion consistent with underlying left bundle branch block LVEF normal at 55-60% Mild mitral regurgitation Mild tricuspid regurgitation Grade 1 diastolic dysfunction HS troponin I: negative x 3 Impression/ Plan: Chest pain, MO excluded. Stress test results reassuring, With results suggesting a low likelihood of underlying hemodynamically significant coronary heart disease. Blood pressure was elevated presentation and was elevated when she presented for stress test. Her systolic blood pressure was 200 mmHg at the start of the stress test. Posttesting, systolic blood pressure was improved to the 140s to 150s when she arrived back on the unit. Due to low blood pressure, patient's metoprolol dose had recently been reduced as an outpatient. Lisinopril had been held. At this time, I think it is reasonable to continue metoprolol succinate at a dose of 25 mg daily, resume lisinopril 2.5 mg daily. Patient stable from a cardiology perspective for discharge. Hao Quintana DO History of Present Illness Reason for Consultation: Chest pain Requesting Physician[facility] Myra Lynch Attending Physician: Dr. Mateo Mendez MD History of Present Illness Shruti Suarez is an 83-year-old female who presented to the [facility] ER January 03, 2024 with chest pain. "I have had these pains in my chest other times, for a few years. This time it seemed a little harder and went across my entire chest." The quality of pain is an ache. The severity on a scale of 1-10 is 67. The pain is located in the left chest and radiated to the right yesterday. The pain occurs without rhyme or reason. It is not aggravated by activity though is possibly aggravated by stress. When the pain occurs it can last for hours, up to 1 day. No associated symptoms such as shortness of breath, diaphoresis, nausea, vomiting, etc. No activity related chest pain. Dyspnea occurs with 3 steps. Notes crawling on her hands and knees upstairs. No resting dyspnea. No palpitations. No orthopnea or PND to accompany mild edema. No syncope. No fevers or chills. No melena, hematochezia, or hematuria. Past Medical and Surgical History Chronic atypical chest pain, negative nuclear stress testing in March 2019 Hypertension Chronic left bundle branch block Dyslipidemia Raynaud's phenomenon Vertigo Type 2 diabetes mellitus Stage III chronic kidney disease Chart history of lacunar infarct Hypothyroidism Anxiety Depression Osteoarthritis GERD Diverticulosis Hemorrhoids Bilateral knee surgeries Tubal Cataract extraction Gallbladder surgery Right shoulder surgery Family History: Mother had a hard life, with CAD. Father had multiple TIAs and CAD. Sister with lupus, also with diabetes. One brother and multiple sisters with CAD. Social History: Never smoker. No alcohol. No illegal drug use. 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 Lives in [place] with her son and his . in 2020, João with a brain tumor, together 60 years. Allergies Allergy/AdvReac Type Severity Reaction Status Date / Time gentamicin Allergy Unknown Rash Verified 01/03/24 16:27 Macrolide Antibiotics Allergy Unknown Rash Unverified 11/18/24 16:27 Penicillins Allergy Unknown Rash Verified 01/03/24 16:27 Sulfa (Sulfonamide Allergy Unknown Rash Verified 01/03/24 16:27 Antibiotics) telithromycin Allergy Unknown Rash - All Unverified 01/03/24 16:27 Ketolides Home Medications Medication Instructions Recorded Confirmed Type aspirin 81 mg tablet,delayed 81 mg PO DAILY 11/06/20 01/03/24 History release (Osei Low Dose Aspirin) atorvastatin 40 mg tablet 40 mg PO QPM 11/06/20 01/03/24 History calcium 600 mg (as carbonate)-vit 1 tab PO BID 11/06/20 01/03/24 History D3 20 mcg (800 unit) chewable tablet (Caltrate plus D) famotidine 20 mg tablet 20 mg PO BID 11/06/20 01/03/24 History fluoxetine 20 mg capsule 40 mg PO QAM 11/06/20 01/03/24 History glucosamine sulf dipot 1 cap PO DAILY 11/06/20 01/03/24 History chlr,msm,chond 550 mg-C 30 mg-jaye 1 mg capsule (Glucosamine Chondroitin) levothyroxine 75 mcg tablet 37.5 mcg PO QAM 11/06/20 01/03/24 History lisinopril 2.5 mg tablet 2.5 mg PO DAILY 11/06/20 01/03/24 History nitroglycerin 0.4 mg sublingual 0.4 mg sublingual UD PRN Chest Pain 11/06/20 01/03/24 History tablet (Nitrostat) pantoprazole 40 mg tablet,delayed 40 mg PO QAM 11/06/20 01/03/24 History release dicyclomine 10 mg capsule 10 mg PO QID PRN Diarrhea and/or 01/03/24 01/03/24 History ABD pain metoprolol succinate 25 mg 25 mg PO DAILY 01/03/24 01/03/24 History tablet,extended release 24 hr mirtazapine 15 mg tablet 0 mg PO HS 01/03/24 01/03/24 History Patient History Family History Other Diabetes Social History Smoking Status: Never smoker Hx Alcohol Use: No Hx Substance Use: No Preferred Language: Montserratian Communication Ability: Effective Director Long Term Care Required: No Beliefs That Will Affect Care: None Current Living Situation: Family Other Information That Helps Us Care for You: No Feels Safe at Home: Yes Safety Concerns: Feels Safe At This Time Assistive Devices: None Review of Systems Review of Systems: Complete review of systems is otherwise as stated above, negative, or n oncontributory. Physical Exam Physical Exam: General: A&Ox3. NAD. HENT: Normocephalic. Atraumatic. Eyes: PER. Conjunctiva pink, sclera clear. Neck: No carotid bruits. No JVD. Heart: RRR, 70 bpm. No significant murmur. No rub. Lungs: Clear to auscultation. Abdomen: +BS. Soft. Nontender. No masses or organomegaly. Extremities: Lymphedematous changes. No significant edema. No clubbing. No cyanosis Limited neurological examination is without focal deficits. Pulses: radial=2/4, posterior tibial=1/4. Results & Data Vital Signs (Past 12 Hours) Vital Signs Temp Pulse Pulse Resp BP BP Pulse Ox 01/04/24 07:47 36.6 C 64 18 147/61 H 95 01/04/24 04:33 36.5 C 71 18 155/51 H 96 01/03/24 23:08 63 01/03/24 23:04 36.5 C 65 18 124/52 L 96 O2 Del Method 01/04/24 07:47 Room Air 01/04/24 04:33 Room Air 01/03/24 23:08 01/03/24 23:04 Room Air Laboratory Results Cardiac Enzymes 01/03/24 01/03/24 01/03/24 Range/Units 13:15 17:27 23:01 AST 30 (13-39) U/L Troponin I High Sens 9.3 11.3 9.3 (0-14) pg/ml 01/04/24 Range/Units 05:54 AST 30 (13-39) U/L Troponin I High Sens (0-14) pg/ml Lipids 01/04/24 Range/Units 05:54 Triglycerides 155 H (0-150) mg/dl Cholesterol 132 (0-200) mg/dl HDL Cholesterol 34 mg/dl Cholesterol/HDL Ratio 3.9 (0-5) CBC 01/03/24 01/04/24 Range/Units 13:15 05:54 WBC 8.66 7.07 (4.8-10.8) K/ul RBC 4.50 4.23 (4.20-5.40) M/uL Hgb 13.7 12.7 (12.0-16.0) g/dl Hct 41.1 38.4 (37.0-47.0) % Plt Count 243 193 (130-400) K/uL Neut # (Auto) 4.57 (1.40-6.50) K/uL Lymph # (Auto) 2.25 (1.20-3.40) K/uL Gentry # (Auto) 0.77 H (0.11-0.59) K/uL Eos # (Auto) 0.99 H (0.00-0.50) K/uL Baso # (Auto) 0.06 (0.00-0.20) K/uL Comprehensive Metabolic Panel 01/03/24 01/04/24 Range/Units 13:15 05:54 Sodium 140 140 (136-145) mmol/L Potassium 4.5 4.7 (3.5-5.1) mmol/L Chloride 106 107 (98-107) mmol/L Carbon Dioxide 29 28 (21-32) mmol/L BUN 14 18 (6-23) mg/dl Creatinine 1.07 1.16 (0.6-1.2) mg/dl Glucose 102 H 103 H (70-99(Fasting)) mg/dl Calcium 9.4 9.2 (8.6-10.3) mg/dl AST 30 30 (13-39) U/L ALT 21 19 (7-52) U/L Alkaline Phosphatase 124 H 106 H (34-104) U/L Total Protein 7.1 6.1 (6.0-8.3) gm/dl Albumin 3.9 3.3 L (3.4-5.0) gm/dl Intake and Output 01/03/24 01/04/24 01/04/24 22:59 06:59 14:59 Intake Total 100 / 100 Balance 100 / 100 Intake: Oral 100 / 100 Other: Other Intake Source NPO # Unmeasured Voids 1 1 Weight 79.5 kg 76.9 kg Weight Measurement Method Standing Scale Standing Scale Diagnostic Findings Telemetry: Sinus rhythm with occasional PVCs, heart rates predominantly in the 60s and 80s (4) High blood pressure Hypertension type: unspecified Qualified Code(s): I10 - Essential (primary) hypertension
[2024-01-04] MEDS: REGADENOSON 0.4 MG/5 ML SYR IV ONE (10:08)
[2024-01-04] MEDS: METOPROLOL SUCC 25MG EXT REL TAB PO SCH (10:10)
[2024-01-04] MEDS: ENOXAPARIN INJ 40 MG/0.4 ML SYR SQ SCH (10:12)
[2024-01-04 11:38] VITALS: BP 150/67; PULSE 62; TEMP 98.1
--- NOTE | 2024-01-04 15:32 | Myocardial Perfusion Study ---
Date of Service January 04, 2024 Myocardial Perfusion Study k Myocardial Perfusion Study Report Nuclear stress test procedure: 1. Myocardial perfusion study performed in multiple views/images 2. Lexiscan pharmacologic stress ECG Indications: 1. Chest pain 2. Chronic left bundle branch block Ordering physician: Hao Quintana DO Procedural details: For the stress portion of the study, Lexiscan 0.4 mg was intravenously administered followed by a saline flush. This was followed by 33.0 mCi of technetium 99m Cardiolite, injected at 9:15 am on 01/04/24 on. 30 minutes following the injection, imaging of the heart was performed in multiple projections. For the rest portion of the study, 11.0 mCi technetium 99m Cardiolite was injected intravenously at 7:33 on 01/04/24. 1 hour following the injection, imaging of the heart was performed in the same projections. Lexiscan stress ECG: Resting ECG demonstrated: SR with LBBB Resting blood pressure: 213/76 mmHg Maximum blood pressure: 213/ 76mmHg Lowest blood pressure: 186/[address] changes:Equivocal due to LBBB Arrhythmia: none Symptoms:Momentary difficulty taking a deep breath after Lexiscan administration that resolved spontaneously in the post-rest recovery interval. Caffeinated cola also administered in the post-rest recovery interval with relief of symptoms. Findings: Rotating raw imaging demonstrated no significant lung uptake. There is no significant motion artifact. Heart size appeared Normal. Myocardial perfusion demonstrated Normal stress and resting perfusion.. Ejection fraction: >70% Wall motion:normal No significant transient ischemic dilation. Impression: 1. The pharmacologic myocardial perfusion imaging study is normal without evidence of scar or inducible ischemia 2. The LV ejection fraction is normal , >70% 3. The stress EKG response is equivocal for excluding ischemia due to the presence of the underlying chronic left bundle branch block 4.Hypertension was noted at baseline at the onset of the test and persisted throughout the study.
--- NOTE | 2024-01-04 16:05 | Discharge Summary ---
Discharge Summary Date of Service January 04, 2024 The patient is a 83-year-old female with a past medical history of HLD, CAD, HTN, DM2, hypothyroidism, intermittent chest pain chronic on nitroglycerin, GERD who presents to the ED on 01/03/2024 with complaints of chest pain across the entirety of her chest. Patient reports going to the clinic lead office and developing some chest pain that was worse than her normal chest pain that she takes her nitroglycerin for. She denies any associated shortness of breath or nausea/vomiting. She denies any recent respiratory illness. Denies any abdominal pain. She was not hypoxic on arrival to the ER. She is now chest pain-free. She received aspirin and nitroglycerin en route to the hospital which helped relieve her pain. The patient was prescribed atorvastatin and reports her PCP recently took her off of it. Her chest x-ray was negative Her EKG was without acute changes And showed normal sinus rhythm with anterior infarctage undetermined Troponin x 2 negative Labs are fairly unremarkable. The patient was admitted for observation for rule out ACS. Cardiology was co nsulted and recommended a stress test. The patient blood pressure had been elevated so cardiology recommended continuing lisinopril. Echo showed LVH, EF of 55-60%, mild tricuspid regurgitation, pulmonary hypertension, grade 1 diastolic dysfunction Myocardial stress test on 01/04/2024 showed: 1. The pharmacologic myocardial perfusion imaging study is normal without evidence of scar or inducible ischemia 2. The LV ejection fraction is normal , >70% 3. The stress EKG response is equivocal for excluding ischemia due to the presence of the underlying chronic left bundle branch block 4.Hypertension was noted at baseline at the onset of the test and persisted throughout the study. The patient's labs/vitals are stable. The patient stable for discharge back home today. She will need follow-up with her PCP within 1 week of discharge. She may to follow cardiology within 2 weeks of discharge. She will need to follow-up with GI within a month of discharge for possible EGD with recurrent GE RD and dysphagia. Principal Dx & Hospital Course #1 = Principal Diagnosis (1) Heart disease: (2) High blood pressure: (3) Diabetes: (4) Hypothyroid: (5) Chronic chest pain: Plan Assessment and plan: Chest painnow resolved Rule out ACS: Initial troponin negative, EKG without acute changes Received nitroglycerin/aspirin and route with improvement Echo on 09/15/2022 showed EF of 55-60%, grade 1 diastolic dysfunction Appreciate cardiology input. Stress test negative --Plan to continue metoprolol, lisinopril, aspirin Given significant GERD, intermittent dysphagia advised to get EGD as outpatient Hx hypothyroidism: Continue levothyroxine Hx DM2: -Currently not on any medications, recheck A1c, sugar within normal limits Hx CAD/HTN/HLD/TIA: Continue lisinopril/metoprolol Patient reports PCP recently stopped statin, hold for now -Lipid panel within normal limits -Continue aspirin Hx depression: Continue fluoxetine Hx GERD: Continue pantoprazole/Pepcid A total of 60 minutes was spent on chart review/facilitating plan of care/discussion with consultants/reviewing diagnostic data Patient is a DNR/DNI DVT prophylaxis: Alfie Notes For Next Care Provider Medication Changes From Visit continue lisinopril Admission HPI Per Admitting Provider The patient is a 83-year-old female with a past medical history of HLD, CAD, HTN, DM2, hypothyroidism, intermittent chest pain chronic on nitroglycerin, GERD who presents to the ED on 01/03/2024 with complaints of chest pain across the entirety of her chest. Patient reports going to the clinic lead office today and developing some chest pain this morning that was worse than her normal chest pain that she takes her nitroglycerin for. She denies any associated shortness of breath or nausea/vomiting. She denies any recent respiratory illness. Denies any abdominal pain. She was not hypoxic on arrival to the ER. On exam, she is now chest pain-free. She received aspirin and nitroglycerin en route to the hospital which helped relieve her pain. The patient was prescribed atorvastatin and reports her PCP recently took her off of it. Her chest x-ray was negative Her EKG was without acute changes And showed normal sinus rhythm with anterior infarctage undetermined Initial troponin was negative Labs are fairly unremarkable. The patient will be admitted for further workup and rule out ACS Discharge Exam Constitutional WD/WN, vitals as above well developed Eyes PERRL, conjunctivae normal, anicteric sclerae ENMT external ear and nose normal, oropharynx normal Neck trachea midline, no thyromegaly Respiratory normal respiratory effort, lungs clear to auscultation Cardiovascular RRR, no murmur, no edema (+2 nonpitting lower extremity edema) Gastrointestinal (Abdomen) normal bowel sounds, soft, nontender, no hepatosplenomegaly Musculoskeletal no cyanosis or clubbing, extremities motor strength 5/5 Skin no rashes, warm and dry Neurologic PERRL, EOMI, accommodation nl, no face palsy, no dysarthria Genitourinary no vaginal lesions, no adnexal mass Lymphatic no cervical or axillary lymphadenopathy Updated Medication List Medication Instructions Recorded Confirmed Type aspirin 81 mg tablet,delayed 81 mg PO DAILY 11/06/20 01/03/24 History release (Osei Low Dose Aspirin) atorvastatin 40 mg tablet 40 mg PO QPM 11/06/20 01/03/24 History calcium 600 mg (as carbonate)-vit 1 tab PO BID 11/06/20 01/03/24 History D3 20 mcg (800 unit) chewable tablet (Caltrate plus D) famotidine 20 mg tablet 20 mg PO BID 11/06/20 01/03/24 History fluoxetine 20 mg capsule 40 mg PO QAM 11/06/20 01/03/24 History glucosamine sulf dipot 1 cap PO DAILY 11/06/20 01/03/24 History chlr,msm,chond 550 mg-C 30 mg-jaye 1 mg capsule (Glucosamine Chondroitin) levothyroxine 75 mcg tablet 37.5 mcg PO QAM 11/06/20 01/03/24 History lisinopril 2.5 mg tablet 2.5 mg PO DAILY 11/06/20 01/03/24 History nitroglycerin 0.4 mg sublingual 0.4 mg sublingual UD PRN Chest Pain 11/06/20 History tablet (Nitrostat) pantoprazole 40 mg tablet,delayed 40 mg PO QAM 11/06/20 01/03/24 History release dicyclomine 10 mg capsule 10 mg PO QID PRN Diarrhea and/or 01/03/24 01/03/24 History ABD pain metoprolol succinate 25 mg 25 mg PO DAILY 01/03/24 01/03/24 History tablet,extended release 24 hr mirtazapine 15 mg tablet 0 mg PO HS 01/03/24 01/03/24 History Hospital Stay Data Consultations 01/03/24 14:04 ED Decision to Admit Stat 01/03/24 15:55 Consult Cardiology Routine Pending Results Patient Have Any Pending Studies at Discharge: No Discharge Instructions Given to Patient (Per Discharging Provider) Please follow with your PCP within 1 week of discharge. Please follow cardiology within 2 weeks of discharge. Please follow-up with GI within a month of discharge for possible EGD outpatient with your history of GERD and intermittent dysphagia Return back to the ED with worsening symptoms. Total Time Total Time Spent Total Time Spent (In Minutes): 60 Total Time Includes: Examination of the Patient, Discharge Planning, Medication Reconciliation and Communication With Other Providers Supervising Physician Co-Signing Physician Notes Patient is seen and examined on day of discharge. Cardiac stress test negative for ischemia. Patient is symptom-free. Discussed with cardiology today. Exam is unchanged from yesterday. Plan to be discharged home today. Advised to follow-up with GI as outpatient for possible EGD given significant GERD symptoms and intermittent dysphagia. Needs close monitoring of blood pressure. Plan to continue metoprolol, lisinopril. I personally interviewed and examined at bedside. Patient's care is coordinated with Myra MATTHEW. I have reviewed the advanced practitioner's documentation, and I agree with plan of care. Please refer to the documentation above for details of patient's presentation and for discussion of other issues. I spent a total [id number] coordinating, documenting, and providing care for this patient excluding time spent in the performance of separately billed services.
[2024-01-04 17:12] LABS: Estimated Average Glucose 131 mg/dl; Hemoglobin A1C 6.2 % (4.5-5.6)
== END 2024-01-04 17:30 | disposition home or self-care (01) | DRG 313 ==
LOC: SUATTDRO → ED 13:02 → 4W 15:41

== ENCOUNTER 2024-11-30 04:55 | Inpatient (IN) ==
[2024-11-30 05:02] VITALS: TEMP 97.9
--- NOTE | 2024-11-30 05:12 | Emergency Department Note ---
Impression & Plan Sepsis Admission ED Provider Note HPI: History obtained from patient and dmkkjikp-tu-azm at the bedside The patient is a 84-year-old female with history of metastatic breast cancer (to liver and bone), currently on chemotherapy, who presents emergency department with chief complaint of shortness of breath. Patient presents with her jcqjeeff-xi-dxi at the bedside. According to the patient's wecuwhkg-ba-fhk, she has had some increasing shortness of breath over about the past 3 to 4 days. Patient did recently just her chemotherapy. Patient denies any chest pain, rygmhywj-uc-agt reports that the patient had hypoxia at home at around 83% on room air. On arrival here to the ED the patient is saturating at 92% on room air, she is hypotensive at 88/62 and heart rate is elevated in the 120s. On my initial assessment the patient appears to be in some mild distress secondary to increased work of breathing, she denies any chest pain, she is afebrile on arrival. ROS: - Per HPI Differential Diagnosis: Sepsis, pneumonia, pleural effusion, pulmonary embolism, ACS, viral upper respiratory infection, acute CHF exacerbation, amongst other potential pathologies. *Outpatient medications and allergy history reviewed. PE: General: Alert, mild distress secondary to increased work of breathing HEENT: Normocephalic, trachea midline Eyes: Extraocular eye movement is intact, no scleral erythema Pulmonary: Diminished bilateral breath sounds with crackles at the bilateral bases Cardio: Tachycardic rate with regular rhythm GI: Abdomen is soft to palpation : No suprapubic tenderness MSK: No evidence of trauma or malformation of the extremities, 2+ edema of the bilateral lower extremities Skin: No evidence of rash Neuro: Alert, no focal deficits Psychiatric: Cooperative INDEPENDENT INTERPRETATIONS: locket maker: (As interpreted by myself): - An order was placed for continuous cardiac monitoring - Patient was noted to be in sinus tachycardia with a rate of 123 EKG: (As interpreted by myself): Rate: 130 Rhythm: Sinus rhythm Intervals: Within normal limits ST changes: No ST elevation Time: 0511 Chest x-ray: (As interpreted by myself): Pulmonary vascular congestion bilaterally Interventions provided in ED: - DuoNeb breathing treatment, IV fluid bolus, IV cefepime, IV doxycycline, IV Levophed Medical Decision Making: IV was established and lab work obtained, patient was placed on copy lathe operator. Lab work shows a leukopenia at 1.41, hemoglobin is normal, platelet count is normal, CMP shows a reduced serum bicarbonate level of 15, creatinine is slightly elevated at 1.46, lactic acid is elevated at 5.3, troponin is 1044, EKG shows sinus tachycardia without any acute ischemic changes per my interpretation, BNP is elevated at 651 and procalcitonin is also elevated at 6.06. Patient did have some hypotension here in the ED and therefore was given a small initial IV fluid bolus (over concern for fluid overload) in addition to a DuoNeb breathing treatment. Chest x-ray appears to show pattern of fluid overload/pulmonary edema. Given the patient's history, CT angiography of the chest was obtained to rule out pulmonary embolism. There is no evidence of pulmonary embolism, ground glass opacities are noted in the bilateral upper lobes and lingula, there is also suggestion of cardiogenic pulmonary edema per the interpreting radiologist. On my reevaluation the patient had some hypotension into the 70s systolic, she was therefore ordered additional IV fluid resuscitation. I discussed the patient's presentation with the on-call air analysis engineering technician, Dr. Shi, and she did review the patient's CT scan of the chest. She believes CT of the chest is more consistent with pneumonia, and she did recommend full IV fluid resuscitation at 30 cc/kg per sepsis protocol. Patient was also added peripheral Levophed for blood pressure support when pressures down trended into the 70s systolic. Patient was also ordered IV cefepime for pneumonia and IV doxycycline for atypical coverage (secondary to allergy profile). I discussed the patient's elevated troponin with on-call cardiology, Dr. Cullen, he recommended the patient be admitted and obtain echocardiography but as lab work and clinical picture at this point is more concerning for sepsis, he did not feel strongly that the patient needed to be heparinized. Patient remained chest pain-free on my reassessment. The patient's case was discussed with the on-call midlevel provider for the [facility], Mary Faye PA-C, and the patient was placed for admission to the service of Dr. Mendez for further management with air analysis engineering technician and cardiology consultations also placed. The patient and her ilzscpym-ke-ekq at the bedside were in agreement to this plan, they were updated on all of the above findings and for the plan of care. Consultants/Discussions held with other healthcare providers: - [place] Laborer, Dr. Shi - Cardiology, Dr. Cullen - Hospitalist, Dr. Mendez Disposition discussion held by myself with: -Patient and patient's ssmogsqn-zx-bik at the bedside * CRITICAL CARE TIME: ( 55 ) minutes -Stabilization and management of patient with hypotension and vital signs concerning for sepsis, initiation of broad-spectrum antibiotics, time spent at the bedside, interpretation of diagnostic studies, discussion with specialty physicians and arrangement of admission Diagnosis: 1. Dyspnea, acute 2. Non-ST elevation myocardial infarction/elevated troponin, acute 3. Pneumonia, acute, bilateral 4. Lactic acidosis, acute 5. Hypotension, acute 6. Leukopenia in the setting of active chemotherapy, acute Disposition: Admission Cain Mattson DO Emergency Medicine Past Med/Surg History Problem List (Updated 11/30/24 @ 07:35 by Cain Mattson DO) Sepsis (Acute) Raynaud disease Dyslipidemia, goal LDL below 70 LBBB (left bundle branch block) Bilateral rotator cuff syndrome Status post right knee replacement Status post left partial knee replacement High blood pressure (Acute) Kidney disease Hypothyroid (Chronic) Hypertension (Chronic) Chronic chest pain (Acute) Left arm pain (Acute) Left arm weakness (Acute) Medical History (Updated 11/30/24 @ 07:35 by Cain Mattson DO) NIELSEN (dyspnea on exertion) Chest pain at rest Chest pain Heart disease Diabetes Family History Other Diabetes Social History Smoking Status: Never smoker Hx Alcohol Use: No Hx Substance Use: No Preferred Language: Upper Sorbian Communication Ability: Effective Play Reader Required: No Beliefs That Will Affect Care: None Current Living Situation: Family Feels Safe at Home: Yes Assistive Devices: None Allergies Allergies Allergy/AdvReac Type Severity Reaction Status Date / Time gentamicin Allergy Unknown Rash Verified 01/03/24 16:27 Macrolide Antibiotics Allergy Unknown Rash Unverified 01/03/24 16:27 Penicillins Allergy Unknown Rash Verified 01/03/24 16:27 Sulfa (Sulfonamide Allergy Unknown Rash Verified 01/03/24 16:27 Antibiotics) telithromycin Allergy Unknown Rash - All Unverified 01/03/24 16:27 Ketolides Home Meds Home Medications Medication Instructions Recorded Confirmed aspirin 81 mg tablet,delayed 81 mg PO DAILY 11/06/20 01/03/24 release (Osei Low Dose Aspirin) atorvastatin 40 mg tablet 40 mg PO QPM 11/06/20 01/03/24 calcium 600 mg (as carbonate)-vit 1 tab PO BID 11/06/20 01/03/24 D3 20 mcg (800 unit) chewable tablet (Caltrate plus D) famotidine 20 mg tablet 20 mg PO BID 11/06/20 01/03/24 fluoxetine 20 mg capsule 40 mg PO QAM 11/06/20 01/03/24 glucosamine sulf dipot 1 cap PO DAILY 11/06/20 01/03/24 chlr,msm,chond 550 mg-C 30 mg-jaye 1 mg capsule (Glucosamine Chondroitin) levothyroxine 75 mcg tablet 37.5 mcg PO QAM 11/06/20 01/03/24 lisinopril 2.5 mg tablet 2.5 mg PO DAILY 11/06/20 01/03/24 nitroglycerin 0.4 mg sublingual 0.4 mg sublingual UD PRN Chest Pain 11/06/20 01/03/24 tablet (Nitrostat) pantoprazole 40 mg tablet,delayed 40 mg PO QAM 11/06/20 01/03/24 release dicyclomine 10 mg capsule 10 mg PO QID PRN Diarrhea and/or 01/03/24 01/03/24 ABD pain metoprolol succinate 25 mg 25 mg PO DAILY 01/03/24 01/03/24 tablet,extended release 24 hr mirtazapine 15 mg tablet 0 mg PO HS 01/03/24 01/03/24 Results & Data (ED) Vital Signs Vital Signs - 24 hr 11/30/24 04:59 11/30/24 05:16 11/30/24 05:37 Temperature 36.6 C Temperature Source Temporal Artery Scan Pulse Rate 128 H 127 H Pulse Rate [Apical] 123 H Respiratory Rate 20 37 H Respiratory Effort / Characteristics Non-Labored Spontaneous Respiratory Depth Normal Respiratory Pattern Regular Blood Pressure 88/62 L Blood Pressure [Right Arm] 90/64 L Blood Pressure Mean 70 Blood Pressure Mean [Right Arm] 72 Pulse Oximetry 92 98 Oxygen Delivery Method Room Air Nasal Cannula Oxygen Flow Rate 2 Sepsis Recent Fever Within 48 Hours No Sepsis New/Unexplained Change in Mental Status N/A Sepsis Action Taken by Nursing Physician Notified Oxygen Flow Rate - Titration Pulse Oximetry Post Tiitration 11/30/24 06:15 11/30/24 06:15 11/30/24 06:23 Temperature Temperature Source Pulse Rate Pulse Rate [Apical] 117 H 115 H Respiratory Rate 34 H Respiratory Effort / Characteristics Respiratory Depth Respiratory Pattern Blood Pressure Blood Pressure [Right Arm] 90/54 L 121/70 Blood Pressure Mean Blood Pressure Mean [Right Arm] 66 87 Pulse Oximetry 91 97 Oxygen Delivery Method Nasal Cannula Nasal Cannula Oxygen Flow Rate 0 2 Sepsis Recent Fever Within 48 Hours Sepsis New/Unexplained Change in Mental Status Sepsis Action Taken by Nursing Oxygen Flow Rate - Titration 2 Pulse Oximetry Post Tiitration 97 11/30/24 06:25 11/30/24 06:31 11/30/24 06:33 Temperature Temperature Source Pulse Rate 115 H Pulse Rate [Apical] 111 H 113 H Respiratory Rate 34 H 32 H Respiratory Effort / Characteristics Respiratory Depth Respiratory Pattern Blood Pressure Blood Pressure [Right Arm] 75/61 L Blood Pressure Mean Blood Pressure Mean [Right Arm] 65 Pulse Oximetry 96 94 94 Oxygen Delivery Method Nasal Cannula Nasal Cannula Nasal Cannula Oxygen Flow Rate 2 2 2 Sepsis Recent Fever Within 48 Hours Sepsis New/Unexplained Change in Mental Status Sepsis Action Taken by Nursing Oxygen Flow Rate - Titration Pulse Oximetry Post Tiitration 11/30/24 06:39 11/30/24 06:46 Temperature Temperature Source Pulse Rate Pulse Rate [Apical] 112 H 111 H Respiratory Rate 28 H 32 H Respiratory Effort / Characteristics Respiratory Depth Respiratory Pattern Blood Pressure Blood Pressure [Right Arm] 91/42 L 91/54 L Blood Pressure Mean Blood Pressure Mean [Right Arm] 58 66 Pulse Oximetry 93 96 Oxygen Delivery Method Nasal Cannula Nasal Cannula Oxygen Flow Rate 3 2 Sepsis Recent Fever Within 48 Hours Sepsis New/Unexplained Change in Mental Status Sepsis Action Taken by Nursing Oxygen Flow Rate - Titration Pulse Oximetry Post Tiitration Laboratory Data 11/30/24 05:18 11/30/24 05:18 Lab Results 11/30/24 11/30/24 11/30/24 Range/Units 05:18 05:22 05:47 WBC 1.41 L (4.8-10.8) K/ul RBC 4.47 (4.20-5.40) M/uL Hgb 13.3 (12.0-16.0) g/dl POC Hgb 14.3 (12.0-16.0) g/dl Hct 39.6 (37.0-47.0) % POC Hct 42 (37-47) % MCV 88.6 (80.0-100.0) fL MCH 29.8 (25.0-34.0) pg MCHC 33.6 (32.0-36.0) g/dL RDW Std Deviation 49.6 H (36.4-46.3) fL RDW Coeff of Mildred 15.3 H (11.5-14.5) % Plt Count 324 (130-400) K/uL MPV 10.6 (9.4-12.4) fL Absolute Nucleated RBC 0.04 (0.00-0.12) K/uL Nucleated RBC % (auto) 2.8 % PT 12.1 H (9.0-12.0) Seconds INR 1.2 H (0.9-1.1) VBG pH 7.38 (7.36-7.41) VBG pCO2 28 L (38-50) mmHg VBG pO2 33 mmHg VBG HCO3 17 mmol/L VBG O2 Saturation 66.6 % VBG Base Excess -7.1 mEq/L POC Sodium 137 (135-144) mmol/L Sodium 136 (136-145) mmol/L POC Potassium 3.5 (3.3-5.0) mmol/L Potassium 3.5 (3.5-5.1) mmol/L POC Chloride 106 (101-112) mmol/L Chloride 104 (98-107) mmol/L Carbon Dioxide 15 L (21-32) mmol/L POC Total CO2 16 L (24-31) mmol/L Anion Gap 17 H (3-11) POC Anion Gap 19.0 (16-25) mmol/L POC BUN 25 H (7-18) mg/dl BUN 25 H (6-23) mg/dl Creatinine 1.46 H (0.6-1.2) mg/dl POC Creatinine 1.5 H (0.6-1.3) mg/dl Est Cr Clr Drug Dosing Not Reportable eGFR 35.28 BUN/Creatinine Ratio 17.1 (10-20) Glucose 139 H (70-99(Fasting)) mg/dl POC Glucose (other) 138 H (70-99) mg/dl Lactate 5.3 H* (0.4-2.0) mmol/L Calcium 6.8 L (8.6-10.3) mg/dl POC Ioniz Calcium Ania 0.85 L (1.12-1.32) mmol/l Total Bilirubin 1.3 H (0.2-1.0) mg/dl AST 100 H (13-39) U/L ALT 45 (7-52) U/L Alkaline Phosphatase 506 H (34-104) U/L Troponin I High Sens 1044.1 H* (0-14) pg/ml B-Natriuretic Peptide 651 H (0-100) pg/ml Total Protein 6.7 (6.0-8.3) gm/dl Albumin 2.5 L (3.4-5.0) gm/dl Globulin 4.2 H (2.5-4.0) gm/dl Albumin/Globulin Ratio 0.6 L (0.9-2) Procalcitonin 6.06 H (0-0.5) ng/ml Administered Medications Norepinephrine Bitartrate (Levophed/D5w) 4 mg in 250 mls @ 13.875 mls/hr IV .Q18H2M ANTOINETTE; Protocol Stop: 12/30/24 07:14 Last Titration: 11/30/24 07:30 Dose: 0.07 mcg/kg/min, 19.4 mls/hr Documented By: NISA Co-signed By: JEZ Admin: 11/30/24 07:07 Dose: 0.05 mcg/kg/min, 13.9 mls/hr Documented By: NISA Co-signed By: JEZ Sodium Chloride (Nss) 1,000 mls @ 999 mls/hr IV .Q1H1M ANTOINETTE Stop: 11/30/24 09:15 Last Admin: 11/30/24 07:21 Dose: 999 mls/hr Documented By: NISA Discontinued Medications Albuterol (Albut/Ipratrop 3mg/0.5mg Neb 3 Ml Vial) 3 ml NEB NOW STA; Protocol Stop: 11/30/24 05:14 Last Admin: 11/30/24 05:41 Dose: 3 ml Documented By: abl Sodium Chloride (Nss) 500 mls @ 999 mls/hr IV .Q31M STA Stop: 11/30/24 05:33 Last Admin: 11/30/24 06:29 Dose: Not Given Documented By: abl Sodium Chloride (Nss) 500 mls @ 999 mls/hr IV .Q31M ONE Stop: 11/30/24 07:05 Last Admin: 11/30/24 06:39 Dose: 999 mls/hr Documented By: SAHIL Cefepime HCl (Maxipime 2000mg) 2,000 mg in 20 mls @ 5 mls/min IV NOW STA; Protocol Stop: 11/30/24 07:09 Last Admin: 11/30/24 07:29 Dose: 5 mls/min Documented By: NISA Ioversol (Optiray 320 125ml) 120 ml IV ONCE ONE Stop: 11/30/24 06:11 Last Admin: 11/30/24 06:10 Dose: 120 ml Documented By: SHANNEN Miscellaneous (Stat Iv Infusion Titration Per Protocol) 1 each N/A NOW STA Stop: 11/30/24 07:07 Last Admin: 11/30/24 07:12 Dose: Not Given Documented By: NISA Norepinephrine Bitartrate (Norepinephrine/D5w 4 Mg/250 Ml) Confirm Administered Dose 4 mg IV .STK-MED ONE Stop: 11/30/24 07:06 Last Admin: 11/30/24 07:12 Dose: Not Given Documented By: NISA Imaging Data Radiologist's Impression: Chest X-Ray 11/30/24 05:03 EXAM: XR chest 1V portable CLINICAL HISTORY: Dyspnea. TECHNIQUE: An X-ray image of the chest was obtained in AP projection. COMPARISON: 01/03/2024 CR. FINDINGS: Right Port-A-Cath with the tip at the cavoatrial junction. Pulmonary Parenchyma: Bilateral central and parahilar, as well as right upper zone, ill-defined opacities with prominent bronchovascular markings suggest early pulmonary edema. The possibility of an infectious process cannot be ruled out; clinical and laboratory correlation is advised. Blunting of the costophrenic angles suggests mild pleural effusion. Heart and Mediastinum: Cardiomegaly is present. Bony Thorax: The bony thorax appears intact without fractures or deformities. Soft Tissues: Soft tissues overlying the chest wall are unremarkable. IMPRESSION: 1. Bilateral central and parahilar, as well as right upper zone, ill-defined opacities with prominent bronchovascular markings suggest early pulmonary edema. The possibility of an infectious process cannot be ruled out; clinical and laboratory correlation is advised. 2. Blunting of the costophrenic angles suggests mild pleural effusion. 3. Cardiomegaly is present. 4. Right Port-A-Cath with the tip at the cavoatrial junction. Electronically signed by Kevin Espitia 11-30-2024 06:52 AM Chest CTA 11/30/24 05:23 EXAM: CT angio chest PE protocol CLINICAL HISTORY: PE TECHNIQUE: Contiguous axial images were obtained from the neck base through the upper abdomen following intravenous administration of iodinated contrast material. Angiographic images were processed, and 3D MIP images were acquired for interpretation. If IV contrast material had not been administered, the likelihood of detecting abnormalities relevant to the patient's condition would have been substantially decreased. Coronal and sagittal 3D MIPs were likewise performed and indicated to increase the sensitivity of detecting diffuse clinically relevant pathology. CT scan was performed according to ALARA (as low as reasonably achievable). COMPARISON: None. FINDINGS: Mild bilateral pleural effusion with basal subsegmental collapse of both lower lobes is seen. Diffuse smooth interlobular septal thickening is noted involving the bilateral lung bases, suggestive of pulmonary congestion. Ill-defined ground-glass opacities are noted involving the peribronchial region of the bilateral upper lobes and lingula. Adequate contrast bolus without evidence of pulmonary embolism. The central airways are patent. Cardiomegaly. There are coronary artery and aortic atherosclerotic calcifications. No pericardial effusion is identified. The thyroid is unremarkable. Multiple subcentimeter to few enlarged lymphnodes in the mediastinum. IMPRESSION: Mild bilateral pleural effusion with basal subsegmental collapse of both lower lobes is seen. Diffuse smooth interlobular septal thickening is noted involving the bilateral lung bases, suggestive of pulmonary congestion. Ground-glass opacities are noted involving the peribronchovascular region of the bilateral upper lobes and lingula. Cardiomegaly. Multiple subcentimeter to few enlarged lymphnodes in the mediastinum. Over all features are suggestive of pulmonary edema likely due to cardiogenic cause. Advised clinical correlation. No evidence of pulmonary embolism. Electronically signed by Master Bustamante 11-30-2024 06:54 AM Discharge Plan Visit Data Chief Complaint: Shortness of Breath/Dyspnea Stated Complaint: SOB ED Provider: Cain Mattson Discharge Problem: Sepsis Patient Disposition: Admitted As Inpatient Condition: Serious Forms Stand Alone Forms: [employer] [facility] [place] [facility] Prescriptions Prescriptions: No Action aspirin [Osei Low Dose Aspirin] 81 mg Tablet,Delayed Release (Dr/Ec) 81 mg PO DAILY Rx Instructions: Unable to verify OTC meds at this date/time. fluoxetine 20 mg capsule 40 mg PO QAM atorvastatin 40 mg tablet 40 mg PO QPM pantoprazole 40 mg tablet,delayed release (DR/EC) 40 mg PO QAM nitroglycerin [Nitrostat] 0.4 mg Tablet, Sublingual 0.4 mg sublingual UD PRN (Reason: Chest Pain) Rx Instructions: Unable to verify med at this date/time. levothyroxine 75 mcg tablet 37.5 mcg PO QAM lisinopril 2.5 mg tablet 2.5 mg PO DAILY famotidine 20 mg Tablet 20 mg PO BID Rx Instructions: Unable to verify OTC meds at this date/time. Caltrate 600 plus D 600 mg (1,500 mg)-800 unit Tablet,Chewable 1 tab PO BID Rx Instructions: Unable to verify OTC meds at this date/time. Glucosamine Chondroitin 550-30-1 mg Capsule 1 cap PO DAILY Rx Instructions: Unable to verify OTC meds at this date/time. mirtazapine 15 mg tablet 0 mg PO HS Rx Instructions: Per pharmacy, last filled 07/2023 x90 day supply. However someone called on 01/02/24 and asked for it to be refilled. metoprolol succinate 25 mg tablet extended release 24 hr 25 mg PO DAILY dicyclomine 10 mg capsule 10 mg PO QID PRN (Reason: Diarrhea and/or ABD pain) Referrals Referrals: Linda Lozano, [Primary Care Provider] -
[2024-11-30 05:40] LABS: Hematocrit (blood only) 39.6 % (37.0-47.0); Hemoglobin 13.3 g/dl (12.0-16.0); Mean Corpuscular Hemoglobin 29.8 pg (25.0-34.0); Mean Corpuscular Volume 88.6 fL (80.0-100.0); Platelet Count 324 K/uL (130-400); RDW Standard Deviation 49.6 fL (36.4-46.3); Red Blood Count 4.47 M/uL (4.20-5.40); White Blood Count 1.41 K/ul (4.8-10.8)
[2024-11-30] MEDS: ALBUT/IPRATROP 3MG/0.5MG NEB 3 ML VIAL NEB STA (05:41)
[2024-11-30 06:00] LABS: Alanine Aminotransferase 45 U/L (7-52); Albumin Globulin Ratio 0.6 (0.9-2); Albumin Level 2.5 gm/dl (3.4-5.0); Alkaline Phosphatase 506 U/L (34-104); Anion Gap 17 (3-11); Bilirubin,Total 1.3 mg/dl (0.2-1.0); Blood Urea Nitrogen 25 mg/dl (6-23); Calcium 6.8 mg/dl (8.6-10.3); Carbon Dioxide 15 mmol/L (21-32); Chloride 104 mmol/L (98-107); Globulin 4.2 gm/dl (2.5-4.0); Glucose 139 mg/dl (70-99(Fasting)); Potassium 3.5 mmol/L (3.5-5.1); Sodium 136 mmol/L (136-145); Total Protein 6.7 gm/dl (6.0-8.3)
[2024-11-30 06:07] LABS: INR 1.2 (0.9-1.1); Prothrombin Time 12.1 Seconds (9.0-12.0)
[2024-11-30 06:07] LABS: Base Excess VBG -7.1 mEq/L; HCO3 VBG 17 mmol/L; Oxygen Saturation VBG 66.6 %; PCO2 VBG 28 mmHg (38-50); PO2 VBG 33 mmHg; pH VBG 7.38 (7.36-7.41)
[2024-11-30] MEDS: OPTIRAY 320 125ml IV ONE (06:10)
[2024-11-30] MEDS: SODIUM CHLORIDE 0.9% 500 ML IV STA (06:29)
[2024-11-30] MEDS: SODIUM CHLORIDE 0.9% 500 ML IV ONE (06:39)
--- NOTE | 2024-11-30 06:52 | XRay Report ---
EXAM: XR chest 1V portable CLINICAL HISTORY: Dyspnea. TECHNIQUE: An X-ray image of the chest was obtained in AP projection. COMPARISON: 01/03/2024 CR. FINDINGS: Right Port-A-Cath with the tip at the cavoatrial junction. Pulmonary Parenchyma: Bilateral central and parahilar, as well as right upper zone, ill-defined opacities with prominent bronchovascular markings suggest early pulmonary edema. The possibility of an infectious process cannot be ruled out; clinical and laboratory correlation is advised. Blunting of the costophrenic angles suggests mild pleural effusion. Heart and Mediastinum: Cardiomegaly is present. Bony Thorax: The bony thorax appears intact without fractures or deformities. Soft Tissues: Soft tissues overlying the chest wall are unremarkable. IMPRESSION: 1. Bilateral central and parahilar, as well as right upper zone, ill-defined opacities with prominent bronchovascular markings suggest early pulmonary edema. The possibility of an infectious process cannot be ruled out; clinical and laboratory correlation is advised. 2. Blunting of the costophrenic angles suggests mild pleural effusion. 3. Cardiomegaly is present. 4. Right Port-A-Cath with the tip at the cavoatrial junction. Electronically signed by Kevin Espitia 11-30-2024 06:52 AM
--- NOTE | 2024-11-30 06:55 | CT Scan Report ---
EXAM: CT angio chest PE protocol CLINICAL HISTORY: PE TECHNIQUE: Contiguous axial images were obtained from the neck base through the upper abdomen following intravenous administration of iodinated contrast material. Angiographic images were processed, and 3D MIP images were acquired for interpretation. If IV contrast material had not been administered, the likelihood of detecting abnormalities relevant to the patient's condition would have been substantially decreased. Coronal and sagittal 3D MIPs were likewise performed and indicated to increase the sensitivity of detecting diffuse clinically relevant pathology. CT scan was performed according to ALARA (as low as reasonably achievable). COMPARISON: None. FINDINGS: Mild bilateral pleural effusion with basal subsegmental collapse of both lower lobes is seen. Diffuse smooth interlobular septal thickening is noted involving the bilateral lung bases, suggestive of pulmonary congestion. Ill-defined ground-glass opacities are noted involving the peribronchial region of the bilateral upper lobes and lingula. Adequate contrast bolus without evidence of pulmonary embolism. The central airways are patent. Cardiomegaly. There are coronary artery and aortic atherosclerotic calcifications. No pericardial effusion is identified. The thyroid is unremarkable. Multiple subcentimeter to few enlarged lymphnodes in the mediastinum. IMPRESSION: Mild bilateral pleural effusion with basal subsegmental collapse of both lower lobes is seen. Diffuse smooth interlobular septal thickening is noted involving the bilateral lung bases, suggestive of pulmonary congestion. Ground-glass opacities are noted involving the peribronchovascular region of the bilateral upper lobes and lingula. Cardiomegaly. Multiple subcentimeter to few enlarged lymphnodes in the mediastinum. Over all features are suggestive of pulmonary edema likely due to cardiogenic cause. Advised clinical correlation. No evidence of pulmonary embolism. Electronically signed by Master Bustamante 11-30-2024 06:54 AM
[2024-11-30] MEDS: NOREPINEPHRINE/D5W 4 MG/250 ML PLCT IV SCH (07:07)
[2024-11-30] MEDS: STAT IV Infusion **Titration per Protocol STA (07:12)
[2024-11-30] MEDS: NOREPINEPHRINE/D5W 4 MG/250 ML IV ONE (07:12)
[2024-11-30] MEDS: SODIUM CHLORIDE 0.9% 1,000 ML IV SCH (07:21)
[2024-11-30] MEDS: CEFEPIME 2000MG 2,000 MG/20 ML SYR IV STA (07:29)
--- NOTE | 2024-11-30 07:30 | History & Physical Report ---
Date of Service November 30, 2024 Assessment & Plan (1) Septic shock: (2) Demand ischemia: (3) Fever and neutropenia: (4) Metastatic malignant neoplasm to breast: (5) Pneumonia: (6) DM (diabetes mellitus), type 2: (7) Hypothyroid: (8) Hypertension: Plan This is an 84yo F with PMH of invasive breast cancer with multiple bone and liver mets on chemo, DM II, hypothyroidism, LBBB, HTN, CKD III, Raynoud's disease, mood disorder and other medical problems listed below who presents with SOB x [address]. [address] Chambers for cancer treatment and underwent chemo regimen of Keytruda, Carboplatin and Abraxane 10 days ago. Returned to [facility] onc 3 days ago for further treatment but it was postponed due to poor tolerance of tx with N/V, limited PO intake as well as low grade fever of 99 F that day. Was given 1L NSS in clinic as well as Aloxi 0.25 mg IV today for significant chemotherapy induced nausea. History obtained from patient, chart review and family at bedside. Patient has had progressive SOB since the weekend as well as productive cough and increased fatigue and was brought to ED for further evaluation. In ED, patient was persistently hypotensive, requiring fluid resuscitation as well as Levophed peripherally due to SBP in the 70s-80s. Was started on broad- spectrum IV antibiotics with cefepime and doxycycline for underlying pneumonia. Discussed case with draw bench operator, who accepted patient for further management in the ICU. Also started on CPAP and then transition to BiPAP due to marked respiratory distress. Troponin initially elevated to 1,000 without significant chest pain. Discussed with reception interviewer on-call Dr. Cullen, who felt troponin elevation was due to demand ischemia in setting of severe illness. Did develop some chest tightness during period of respiratory distress but due to chronic left bundle branch block, EKG ordered was unhelpful. Stat echocardiogram obtained, revealing mildly reduced EF of 45% with dyssynergy septal contractility per report. Per discussion with patient and son/POA while in ED, confirmed DNR/DNI status but still wanted to trial IV antibiotics, Lopressor and IV hydration to see if there would be improvement. Upon arrival to ICU, patient remained on Levophed and bipap, family and patient again discussed goals with draw bench operator Dr. Shi and they decided to pursue comfort measures only. Discussed this over the phone with son/POA to confirm. Transitioned to RESIDENTIAL PROGRAM DIRECTOR. Dispo: Admitted to ICU Patient seen in collaboration with Dr. Mendez. Please see addendum. I spent a total of 75 minutes coordinating, documenting, and providing care for this patient excluding time spent in the performance of separately billed services or time spent by another provider/QHP. History of Present Illness Chief Complaint: SOB Primary Care Provider: Linda Lozano DO This is an 84yo F with PMH of invasive breast cancer with multiple bone and liver mets on chemo, DM II, hypothyroidism, LBBB, HTN, CKD III, Raynoud's disease, mood disorder and other medical problems listed below who presents with SOB x [address] Chambers for cancer treatment and underwent chemo regimen of Keytruda, Carboplatin and Abraxane 10 days ago. Returned to [facility] onc 3 days ago for further treatment but it was postponed due to poor tolerance of tx with N/V, limited PO intake as well as low grade fever of 99 F that day. Was given 1L NSS in clinic as well as Aloxi 0.25 mg IV today for significant chemotherapy induced nausea. History obtained from patient, chart review and family at bedside. Patient has had progressive SOB since the weekend as well as productive cough and increased fatigue. Patient continues to feel weak and SOB in ED. Did develop some chest tightness that improved once CPAP placed. No chills, lightheadedness, palpitations, N/V, abd pain, dysuria, diarrhea. Bolus IV fluids, started on cefepime and doxy with blood cx pending for sepsis. Levophed started in peripheral line due to hypotension. Discussed with Dr. Shi and will be admitted to ICU for further management. Echo ordered due to elevated trop and CP, being driven by acute illness -discussed with Dr. Cullen. Per discussion with patient, confirmed DNR/DNI status. Does want IV fluids, antibiotics, bipap and IV pressors in short term. Long discussion with son, aware of severity of condition. Allergies Allergy/AdvReac Type Severity Reaction Status Date / Time gentamicin Allergy Unknown Rash Verified 01/03/24 16:27 Macrolide Antibiotics Allergy Unknown Rash Unverified 01/03/24 16:27 Penicillins Allergy Unknown Rash Verified 01/03/24 16:27 Sulfa (Sulfonamide Allergy Unknown Rash Verified 01/03/24 16:27 Antibiotics) telithromycin Allergy Unknown Rash - All Unverified 01/03/24 16:27 Ketolides Home Medications Medication Instructions Recorded Confirmed Type lisinopril 2.5 mg tablet 2.5 mg PO DAILY 11/06/20 11/30/24 History nitroglycerin 0.4 mg sublingual 0.4 mg sublingual UD PRN Chest Pain 11/06/20 11/30/24 History tablet (Nitrostat) pantoprazole 40 mg tablet,delayed 40 mg PO QAM 11/06/20 11/30/24 History release metoprolol succinate 25 mg 25 mg PO DAILY 01/03/24 11/30/24 History tablet,extended release 24 hr mirtazapine 15 mg tablet 15 mg PO HS 01/03/24 11/30/24 History lidocaine-prilocaine 2.5 %-2.5 % 1 applic topical ONCE PRN PORT 11/30/24 11/30/24 History topical cream DRESSING loratadine 10 mg tablet 10 mg PO DAILY PRN allergies 11/30/24 11/30/24 History nystatin 100,000 unit/mL oral 5 ml PO QID 11/30/24 11/30/24 History suspension olanzapine 5 mg tablet 5 mg PO HS 11/30/24 11/30/24 History ondansetron 8 mg disintegrating 8 mg PO Q8H PRN Nausea 11/30/24 11/30/24 History tablet oxycodone 5 mg tablet 5 mg PO Q8H PRN Pain 11/30/24 11/30/24 History Past Med/Surg History Problem List (Updated 11/30/24 @ 13:57 by Mary Faye PA-C) Pneumonia Metastatic malignant neoplasm to breast Fever and neutropenia Demand ischemia Neutropenia Lactic acid acidosis PHILLY (acute kidney injury) Septic shock Elevated troponin Acute hypoxic respiratory failure Sepsis (Acute) Raynaud disease Dyslipidemia, goal LDL below 70 LBBB (left bundle branch block) Bilateral rotator cuff syndrome Status post right knee replacement Status post left partial knee replacement High blood pressure (Acute) Kidney disease Chronic chest pain (Acute) Left arm pain (Acute) Left arm weakness (Acute) Medical History (Updated 11/30/24 @ 13:57 by Mary Faye PA-C) Hypertension Hypothyroid DM (diabetes mellitus), type 2 NIELSEN (dyspnea on exertion) Chest pain at rest Chest pain Heart disease Diabetes Family History Other Diabetes Social History Smoking Status: Never smoker Second Hand Exposure: No; Do You Dip or Chew Tobacco: No; Hx Alcohol Use: No Hx Substance Use: No Preferred Language: Occitan Communication Ability: Impaired Child Care Teacher Required: No Beliefs That Will Affect Care: Yarsanism Current Living Situation: Family Feels Safe at Home: Yes Assistive Devices: BiPap Review of Systems Review of Systems: At least ten systems reviewed and negative except as noted in the HPI. Physical Exam Physical Exam: General Appearance: WD/WN, vitals as above, acutely ill, frail, tachypneic Head: normocephalic, atraumatic Eyes: normal inspection, PERRL ENT: external ear and nose normal Neck: normal visual inspection Respiratory: +increased respiratory effort, bibasilar rales. + accessory muscle use Cardiovascular: tachycardic rate, normal peripheral pulses, no BLE edema Chest: + port Abdomen/GI: normal bowel sounds, soft, nontender Extremities/Musculoskeletal: + LUE lymphedema Neurologic: PERRL, EOMI, accommodation nl, no face palsy, no dysarthria, CN's II-XI intact bilaterally and moves all extremities Psychiatric: A+Ox3, euthymic affect Skin: no rashes, normal color, cool extremities Results & Data Results & Data Vital Signs (Past 12 Hours) Vital Signs Temp Pulse Pulse Resp BP BP Pulse Ox 11/30/24 06:46 111 H 32 H 91/54 L 96 11/30/24 06:39 112 H 28 H 91/42 L 93 11/30/24 06:33 113 H 32 H 94 11/30/24 06:31 111 H 34 H 75/61 L 94 11/30/24 06:25 115 H 96 11/30/24 06:23 115 H 34 H 121/70 11/30/24 06:15 117 H 90/54 L 97 11/30/24 06:15 91 11/30/24 05:37 123 H 37 H 90/64 L 98 11/30/24 05:16 127 H 11/30/24 04:59 36.6 C 128 H 20 88/62 L 92 O2 Del Method O2 Flow Rate 11/30/24 06:46 Nasal Cannula 2 11/30/24 06:39 Nasal Cannula 3 11/30/24 06:33 Nasal Cannula 2 11/30/24 06:31 Nasal Cannula 2 11/30/24 06:25 Nasal Cannula 2 11/30/24 06:23 11/30/24 06:15 Nasal Cannula 2 11/30/24 06:15 Nasal Cannula 0 11/30/24 05:37 Nasal Cannula 2 11/30/24 05:16 11/30/24 04:59 Room Air Laboratory Results Short CBC 11/30/24 Range/Units 05:18 WBC 1.41 L (4.8-10.8) K/ul Hgb 13.3 (12.0-16.0) g/dl Hct 39.6 (37.0-47.0) % Plt Count 324 (130-400) K/uL BMP 11/30/24 05:18 Sodium 136 Potassium 3.5 Chloride 104 Carbon Dioxide 15 L BUN 25 H Creatinine 1.46 H Glucose 139 H Calcium 6.8 L Liver Function 11/30/24 Range/Units 05:18 Total Bilirubin 1.3 H (0.2-1.0) mg/dl AST 100 H (13-39) U/L ALT 45 (7-52) U/L Alkaline Phosphatase 506 H (34-104) U/L Albumin 2.5 L (3.4-5.0) gm/dl Diagnostic Findings Chest X-Ray 11/30/24 05:03 EXAM: XR chest 1V portable CLINICAL HISTORY: Dyspnea. TECHNIQUE: An X-ray image of the chest was obtained in AP projection. COMPARISON: 01/03/2024 CR. FINDINGS: Right Port-A-Cath with the tip at the cavoatrial junction. Pulmonary Parenchyma: Bilateral central and parahilar, as well as right upper zone, ill-defined opacities with prominent bronchovascular markings suggest early pulmonary edema. The possibility of an infectious process cannot be ruled out; clinical and laboratory correlation is advised. Blunting of the costophrenic angles suggests mild pleural effusion. Heart and Mediastinum: Cardiomegaly is present. Bony Thorax: The bony thorax appears intact without fractures or deformities. Soft Tissues: Soft tissues overlying the chest wall are unremarkable. IMPRESSION: 1. Bilateral central and parahilar, as well as right upper zone, ill-defined opacities with prominent bronchovascular markings suggest early pulmonary edema. The possibility of an infectious process cannot be ruled out; clinical and laboratory correlation is advised. 2. Blunting of the costophrenic angles suggests mild pleural effusion. 3. Cardiomegaly is present. 4. Right Port-A-Cath with the tip at the cavoatrial junction. Electronically signed by Kevin Espitia 11-30-2024 06:52 AM Chest CTA 11/30/24 05:23 EXAM: CT angio chest PE protocol CLINICAL HISTORY: PE TECHNIQUE: Contiguous axial images were obtained from the neck base through the upper abdomen following intravenous administration of iodinated contrast material. Angiographic images were processed, and 3D MIP images were acquired for interpretation. If IV contrast material had not been administered, the likelihood of detecting abnormalities relevant to the patient's condition would have been substantially decreased. Coronal and sagittal 3D MIPs were likewise performed and indicated to increase the sensitivity of detecting diffuse clinically relevant pathology. CT scan was performed according to ALARA (as low as reasonably achievable). COMPARISON: None. FINDINGS: Mild bilateral pleural effusion with basal subsegmental collapse of both lower lobes is seen. Diffuse smooth interlobular septal thickening is noted involving the bilateral lung bases, suggestive of pulmonary congestion. Ill-defined ground-glass opacities are noted involving the peribronchial region of the bilateral upper lobes and lingula. Adequate contrast bolus without evidence of pulmonary embolism. The central airways are patent. Cardiomegaly. There are coronary artery and aortic atherosclerotic calcifications. No pericardial effusion is identified. The thyroid is unremarkable. Multiple subcentimeter to few enlarged lymph nodes in the mediastinum. IMPRESSION: Mild bilateral pleural effusion with basal subsegmental collapse of both lower lobes is seen. Diffuse smooth interlobular septal thickening is noted involving the bilateral lung bases, suggestive of pulmonary congestion. Ground-glass opacities are noted involving the peribronchovascular region of the bilateral upper lobes and lingula. Cardiomegaly. Multiple subcentimeter to few enlarged lymphnodes in the mediastinum. Over all features are suggestive of pulmonary edema likely due to cardiogenic cause. Advised clinical correlation. No evidence of pulmonary embolism. Electronically signed by Master Bustamante 11-30-2024 06:54 AM Supervising Physician Co-Signing Physician Notes Patient is an 84-year-old female with invasive metastatic breast cancer on chemo and immunotherapy follows with Dr. Chambers and other comorbidities presents with history of worsening shortness of breath since 3 days duration. Patient was evaluated by oncology 3 days ago for further treatments which were postponed due to poor tolerance of initial treatment. She has been having poor oral intake associated with nausea, vomiting, fever. Also was having productive cough. Please review HPI for complete details of presentation. I personally reviewed blood work and imaging studies. I discussed with patient's family at bedside and also with draw bench operator. Patient was started on pressors while in ED. Placed on BiPAP. Confirmed patient's CODE STATUS to be DNI DNR. On exam patient is overweight, respiratory distress with accessory muscle use noted, tachypneic, tachycardic, 1+ bilateral lower extremity edema, decreased/coarse breath sound, S1-S2, no murmur, s abdomen soft, nontender, alert, awake, oriented, grossly moves all extremities. Patient is admitted for acute hypoxic respiratory failure and septic shock likely secondary to multifocal pneumonia in setting of neutropenia/immunocompromise state. Patient was placed on BiPAP for respiratory support. Was also started on pressors. Patient received IV fluids. Also started on broad-spectrum antibiotics. Noted elevated lactic, procalcitonin levels. Also noted PHILLY with creatinine 1.46. Troponin elevation likely demand ischemia which is thought to be multifactorial secondary to sepsis, chemotherapy. Appreciate cardiology, critical care input. Was initiated on anticoagulation with IV heparin as recommended by cardiology. Patient and patient's family preferred no aggressive measures and preferred patient to be transition to comfort measures only. Will transfer out of ICU as able. I pers onally interviewed and examined the patient at bedside. I have reviewed the advanced practitioner's documentation on the date of service referred in note and agree with plan. Patient's care is coordinated with Mary Faye PA-C. Please refer to the documentation above for details of patient's presentation and for discussion of other issues. I spent a total [id number] coordinating, documenting, and providing care for this patient excluding time spent in the performance of separately billed services or time spent by another provider/QHP.
[2024-11-30 07:57] LABS: Chlamydia pneumoniae PCR Not Detected (NotDetected); Coronavirus 229E PCR Not Detected (NotDetected); Coronavirus CoV-2 (COVID19)PCR Not Detected (NotDetected); Coronavirus HKU1 PCR Not Detected (NotDetected); Coronavirus NL63 PCR Not Detected (NotDetected); Coronavirus OC43PCR Not Detected (NotDetected); Human Metapneumovirus PCR Not Detected (NotDetected); Parainfluenza Virus 1 PCR Not Detected (NotDetected); Parainfluenza Virus 2 PCR Not Detected (NotDetected); Parainfluenza Virus 3 PCR Not Detected (NotDetected); Parainfluenza Virus 4 PCR Not Detected (NotDetected); Respiratory Syncytial VirusPCR Not Detected (NotDetected); Rhinovirus/Enterovirus PCR Not Detected (NotDetected)
[2024-11-30] MEDS: DOXYCYCLINE HYCLATE 100 MG in DEXTROSE 5% MINI-B 100 ML IV STA (08:01)
[2024-11-30 08:18] LABS: Dohle Bodies 2+; Polychromasia 1+
[2024-11-30 08:38] LABS: Immature Granulocytes # (auto) 0.08 K/uL (0.01-0.20); Immature Granulocytes % (auto) 5.7 %
--- NOTE | 2024-11-30 08:58 | Cardiology Consultation ---
Date of Consultation November 30, 2024 Assessment & Plan (1) Acute hypoxic respiratory failure: (2) Sepsis: (3) LBBB (left bundle branch block): (4) Elevated troponin: Plan Critically ill 84-year-old female presenting with acute hypoxic respiratory failure hypotension and likely sepsis. Neutropenic with recent chemotherapy including Keytruda At time of examination marked respiratory distress, tachycardia. EKG with sinus tachycardia and chronic left bundle branch block Elevated troponin 1. Acute hypoxic respiratory failure multifactorial including likely pneumonia/sepsis. Exam does not reflect acute volume overload with flat neck veins and no peripheral edema 2. Elevated troponin likely secondary demand issues of #1. Chronic left bundle branch block rendering EKG unhelpful. Echocardiogram with mildly reduced ejection fraction EF 45% with dyssynergy septal contractility. No valvular disease. 3. Mildly reduced ejection fraction as above suspect multifactorial including demand ischemia, sepsis, chemotherapy effect. Recommendations: Patient critically ill with planned ICU transfer currently requiring pressor, respiratory (BiPAP) support. Initial therapies begun for treatment of sepsis Agree with fluid resuscitation Initiate anticoagulation as course progresses Prognosis limited History of Present Illness Reason for Consultation: Acute respiratory failure, hypotension Requesting Physician: Tammy bethea History of Present Illness Patient is an 84-year-old female with prior cardiac concerns which include Chronic atypical chest pain, negative nuclear stress testing in 2013, March 2019, December 2023 Hypertension Chronic left bundle branch block Dyslipidemia Raynaud's phenomenon Vertigo Type 2 diabetes mellitus Stage III chronic kidney disease Now with recent diagnosis of metastatic breast carcinoma status postchemotherapy 10 days prior to presentation therapies including Keytruda carboplatin and Abraxane. Per report poorly tolerated due to nausea vomiting poor p.o. intake. Patient presents now having had low-grade fevers x 3 days followed by acute re spiratory distress late last night early this morning. Brought to the ER where patient was found to be in marked respiratory stress, significant hypotension, tachycardia. EKG chronic left bundle branch block with sinus tachycardia Chest x-ray, CT pneumonia, pleural effusions no pericardial effusion Troponin elevated Significant respiratory distress at time of examination with tachycardia and hyp otension despite pressor support. Allergies Allergy/AdvReac Type Severity Reaction Status Date / Time gentamicin Allergy Unknown Rash Verified 01/03/24 16:27 Macrolide Antibiotics Allergy Unknown Rash Unverified 01/03/24 16:27 Penicillins Allergy Unknown Rash Verified 01/03/24 16:27 Sulfa (Sulfonamide Allergy Unknown Rash Verified 01/03/24 16:27 Antibiotics) telithromycin Allergy Unknown Rash - All Unverified 01/03/24 16:27 Ketolides Home Medications Medication Instructions Recorded Confirmed Type lisinopril 2.5 mg tablet 2.5 mg PO DAILY 11/06/20 11/30/24 History nitroglycerin 0.4 mg sublingual 0.4 mg sublingual UD PRN Chest Pain 11/06/20 11/30/24 History tablet (Nitrostat) pantoprazole 40 mg tablet,delayed 40 mg PO QAM 11/06/20 11/30/24 History release metoprolol succinate 25 mg 25 mg PO DAILY 01/03/24 11/30/24 History tablet,extended release 24 hr mirtazapine 15 mg tablet 15 mg PO HS 01/03/24 11/30/24 History lidocaine-prilocaine 2.5 %-2.5 % 1 applic topical ONCE PRN PORT 11/30/24 11/30/24 History topical cream DRESSING loratadine 10 mg tablet 10 mg PO DAILY PRN allergies 11/30/24 11/30/24 History nystatin 100,000 unit/mL oral 5 ml PO QID 11/30/24 11/30/24 History suspension olanzapine 5 mg tablet 5 mg PO HS 11/30/24 11/30/24 History ondansetron 8 mg disintegrating 8 mg PO Q8H PRN Nausea 11/30/24 11/30/24 History tablet oxycodone 5 mg tablet 5 mg PO Q8H PRN Pain 11/30/24 11/30/24 History Patient History Medical History (Updated 11/30/24 @ 09:15 by Scott Cullen MD) NIELSEN (dyspnea on exertion) Chest pain at rest Chest pain Heart disease Diabetes Family History Other Diabetes Social History Smoking Status: Never smoker Second Hand Exposure: No; Do You Dip or Chew Tobacco: No; Tobacco Cessation Education Requested by Patient: No Hx Alcohol Use: No Hx Substance Use: No Preferred Language: Korean Communication Ability: Impaired End Trimmer Required: No Beliefs That Will Affect Care: None Current Living Situation: Family Other Information That Helps Us Care for You: No Feels Safe at Home: Yes Safety Concerns: Feels Safe At This Time Assistive Devices: BiPap Review of Systems Review of Systems: All systems reviewed & are unremarkable except as noted in HPI & below Physical Exam Constitutional: + acute distress, + ill appearing and + frail appearing Eyes: PERRL, conjunctivae normal, anicteric sclerae ENMT: external ear and nose normal, oropharynx normal Neck: trachea midline, no thyromegaly Respiratory: + respiratory distress and + cough Au scultation: + crackles (Bibasilar left greater than right) Cardiovascular: Rate/Rhythm: regular rhythm and + tachycardic Heart Sounds: no murmur Vessels: no JVD Extremities: no edema Gastrointestinal (Abdomen): normal bowel sounds, soft, nontender, no h epatosplenomegaly Results & Data Vital Signs (Past 12 Hours) Vital Signs Temp Pulse Pulse Resp BP BP Pulse Ox 11/30/24 08:08 120 H 45 H 97 11/30/24 06:46 111 H 32 H 91/54 L 96 11/30/24 06:39 112 H 28 H 91/42 L 93 11/30/24 06:33 113 H 32 H 94 11/30/24 06:31 111 H 34 H 75/61 L 94 11/30/24 06:25 115 H 96 11/30/24 06:23 115 H 34 H 121/70 11/30/24 06:15 117 H 90/54 L 97 11/30/24 06:15 91 11/30/24 05:37 123 H 37 H 90/64 L 98 11/30/24 05:16 127 H 11/30/24 04:59 36.6 C 128 H 20 88/62 L 92 O2 Del Method O2 Flow Rate FiO2 11/30/24 08:08 40 11/30/24 06:46 Nasal Cannula 2 11/30/24 06:39 Nasal Cannula 3 11/30/24 06:33 Nasal Cannula 2 11/30/24 06:31 Nasal Cannula 2 11/30/24 06:25 Nasal Cannula 2 11/30/24 06:23 11/30/24 06:15 Nasal Cannula 2 11/30/24 06:15 Nasal Cannula 0 11/30/24 05:37 Nasal Cannula 2 11/30/24 05:16 11/30/24 04:59 Room Air Laboratory Results Laboratory Results - last 24 hr 11/30/24 11/30/24 11/30/24 05:18 05:22 05:47 WBC 1.41 L RBC 4.47 Hgb 13.3 POC Hgb 14.3 Hct 39.6 POC Hct 42 MCV 88.6 MCH 29.8 MCHC 33.6 RDW Std Deviation 49.6 H RDW Coeff of Mildred 15.3 H Plt Count 324 MPV 10.6 Immature Gran % (Auto) 5.7 Neut % (Auto) 10.6 Lymph % (Auto) 42.6 [place] % (Auto) 40.4 Eos % (Auto) 0.0 Baso % (Auto) 0.7 Neut # (Auto) 0.15 L* Lymph # (Auto) 0.60 L [place] # (Auto) 0.57 Eos # (Auto) 0.00 Baso # (Auto) 0.01 Immature Gran # (Auto) 0.08 Absolute Nucleated RBC 0.04 Nucleated RBC % (auto) 2.8 Blood Smear Review Dohle Bodies 2+ Polychromasia 1+ PT 12.1 H INR 1.2 H VBG pH 7.38 VBG pCO2 28 L VBG pO2 33 VBG HCO3 17 VBG O2 Saturation 66.6 VBG Base Excess -7.1 POC Sodium 137 Sodium 136 POC Potassium 3.5 Potassium 3.5 POC Chloride 106 Chloride 104 Carbon Dioxide 15 L POC Total CO2 16 L Anion Gap 17 H POC Anion Gap 19.0 POC BUN 25 H BUN 25 H Creatinine 1.46 H POC Creatinine 1.5 H Est Cr Clr Drug Dosing Not Reportable eGFR 35.28 BUN/Creatinine Ratio 17.1 Glucose 139 H POC Glucose (other) 138 H Lactate 5.3 H* Calcium 6.8 L POC Ioniz Calcium Ania 0.85 L Total Bilirubin 1.3 H AST 100 H ALT 45 Alkaline Phosphatase 506 H Troponin I High Sens 1044.1 H* B-Natriuretic Peptide 651 H Total Protein 6.7 Albumin 2.5 L Globulin 4.2 H Albumin/Globulin Ratio 0.6 L Procalcitonin 6.06 H Adenovirus (PCR) B. pertussis DNA (PCR) B.parapertussis DNA PCR C. pneumoniae DNA (PCR) Coronavirus OC43 (PCR) Coronavirus HKU1 (PCR) Coronavirus 229E (PCR) SARS-CoV-2 (PCR) Coronavirus NL63 (PCR) Human Metapneumovir PCR Influenza Type A (PCR) Influenza Type B (PCR) M. pneumoniae (PCR) Parainfluenza 1 (PCR) Parainfluenza 2 (PCR) Parainfluenza 3 (PCR) Parainfluenza 4 (PCR) RSV (PCR) Entero/Rhino (PCR) 11/30/24 11/30/24 06:26 07:07 WBC RBC Hgb POC Hgb Hct POC Hct MCV MCH MCHC RDW Std Deviation RDW Coeff of Mildred Plt Count MPV Immature Gran % (Auto) Neut % (Auto) Lymph % (Auto) [place] % (Auto) Eos % (Auto) Baso % (Auto) Neut # (Auto) Lymph # (Auto) [place] # (Auto) Eos # (Auto) Baso # (Auto) Immature Gran # (Auto) Absolute Nucleated RBC Nucleated RBC % (auto) Blood Smear Review Dohle Bodies Polychromasia PT INR VBG pH VBG pCO2 VBG pO2 VBG HCO3 VBG O2 Saturation VBG Base Excess POC Sodium Sodium POC Potassium Potassium POC Chloride Chloride Carbon Dioxide POC Total CO2 Anion Gap POC Anion Gap POC BUN BUN Creatinine POC Creatinine Est Cr Clr Drug Dosing eGFR BUN/Creatinine Ratio Glucose POC Glucose (other) Lactate 4.8 H* Calcium POC Ioniz Calcium Ania Total Bilirubin AST ALT Alkaline Phosphatase Troponin I High Sens 1267.2 H* D B-Natriuretic Peptide Total Protein Albumin Globulin Albumin/Globulin Ratio Procalcitonin Adenovirus (PCR) Not Detected B. pertussis DNA (PCR) Not Detected B.parapertussis DNA PCR Not Detected C. pneumoniae DNA (PCR) Not Detected Coronavirus OC43 (PCR) Not Detected Coronavirus HKU1 (PCR) Not Detected Coronavirus 229E (PCR) Not Detected SARS-CoV-2 (PCR) Not Detected Coronavirus NL63 (PCR) Not Detected Human Metapneumovir PCR Not Detected Influenza Type A (PCR) Not Detected Influenza Type B (PCR) Not Detected M. pneumoniae (PCR) Not Detected Parainfluenza 1 (PCR) Not Detected Parainfluenza 2 (PCR) Not Detected Parainfluenza 3 (PCR) Not Detected Parainfluenza 4 (PCR) Not Detected RSV (PCR) Not Detected Entero/Rhino (PCR) Not Detected Diagnostic Findings Echocardiogram at bedside 11/30/2024, preliminary review Study poorly tolerated by patient Sinus tachycardia during exam Left ventricle is normal in size with mild increase in left wall thickness There is mild septal dyssynergy consistent with left bundle branch block Mild diffuse hypokinesis EF 45 t% Mild mitral sufficiency No pericardial effusion PG Care Time/CCT Total # of Minutes Spent Total Time Spent with Patient: Total time spent is greater than 50% in coordination of care (as documented) at patient's floor/unit and/or counseling patient: Coding Level of Care Code 88859 IN/OBS CONSULT LVL 4,60M Diagnoses Acute hypoxic respiratory failure J96.01 Sepsis A41.9 LBBB (left bundle branch block) I44.7 Elevated troponin R79.89
[2024-11-30] MEDS ORDERED: LEVALBUTEROL HCL 0.63 MG/3 ML NEB NEB PRN (10:17)
[2024-11-30] MEDS ORDERED: CARBOHYDRATES FOR HYPOGLYCEMIA PO PRN (10:17)
[2024-11-30] MEDS ORDERED: DEXTROSE 50% 50 ML SYRINGE IV PRN (10:17)
[2024-11-30] MEDS ORDERED: GLUCOSE 10 TAB/TUBE PO PRN (10:17)
[2024-11-30] MEDS ORDERED: GLUCOSE 40% GEL 15 GM TUBE PO PRN (10:17)
[2024-11-30] MEDS ORDERED: CEFEPIME 2000MG 2,000 MG/20 ML SYR IV SCH (10:17)
[2024-11-30] MEDS ORDERED: GLUCAGON FOR INJ 1 MG VIAL SQ PRN (10:17)
[2024-11-30] MEDS: MoRPHine SULFATE 2 MG/ML CARP IV STA (11:08)
[2024-11-30] MEDS: MoRPHine SULFATE 2 MG/ML CARP ONE (11:08)
[2024-11-30] MEDS ORDERED: ONDANSETRON INJ 2 MG/ML 2 ML VIAL IV PRN (11:15)
[2024-11-30] MEDS ORDERED: PROMETHAZINE 12.5 MG/50.5 ML BAG IV PRN (11:15)
[2024-11-30] MEDS ORDERED: GLYCOPYRROLATE 0.2 MG/ML VIAL IV PRN (11:15)
[2024-11-30] MEDS: LORazepam Inj 0.5 MG in SYRINGE 0.25 ML IV PRN (11:23)
[2024-11-30] MEDS ORDERED: INSULIN ASPART PER UNIT CHARGE SC SCH (11:30)
[2024-11-30 12:01] LABS: iSTAT Art Bld Gas Base Excess -13.0 mmol/L (-9-1.8); iSTAT Art Bld Gas pCO2 Correct 25 mmHg (35-46); iSTAT Art Bld Gas pH Corrected 7.334 (7.35-7.45); iSTAT Arterial Blood Gas pO2 C 92
[2024-11-30] MEDS: MoRPHine SULFATE 10 MG/0.5 ML UDP PO PRN (12:27)
--- NOTE | 2024-11-30 13:13 | Critical Care Consultation ---
Date of Consultation November 30, 2024 Assessment & Plan (1) Acute hypoxic respiratory failure: (2) Septic shock: (3) PHILLY (acute kidney injury): (4) Lactic acid acidosis: (5) Neutropenia: (6) Elevated troponin: Plan Patient is a 84-year-old female who presented to the ICU with acute hypoxic respiratory failure and shock. Imaging on admission shows pulmonary infiltrates concerning for pneumonia. Labs show significant lymphopenia with neutropenia. Patient received chemotherapy and immunotherapy very recently. After arrival to the ICU the patient remained uncomfortable on noninvasive. I talked with the patient extensively at bedside and I also discussed her case wi th the family/MPOA which is her son. The patient is a DNR/DNI. She did not want aggressive measures. She is adamant that she does not want any form of life support. She expressed this to me and to her son. The family stated bedside and had a discussion with the patient and they decided to pursue comfort care measures only. The patient was transition to comfort care orders which were placed by the hospitalist team. Norepinephrine was withdrawn. The patient was placed on nasal cannula and anxiety/pain medications were administered. Patient passed peacefully with family at bedside not long after being placed on comfort care. History of Present Illness Reason for Consultation: Shock, hypoxic respite failure Requesting Physician: Mateo Mendez MD Attending Physician: Mateo Mendez MD History of Present Illness Patient is an 84-year-old female with a history of invasive breast cancer with multiple metastases to bone and liver, she recently started chemotherapy and immunotherapy (Keytruda, carboplatin, Abraxane) approximately 10 days ago and has not been doing well since that treatment. Her other history is significant for diabetes, hypothyroidism, left bundle branch block, CKD 3, Raynaud's disease and hypertension. This patient had been having increasing shortness of breath for a few days prior to presenting to the emergency department. She had also been having nausea, vomiting and low p.o. intake and low-grade fevers at home. In the emergency department the patient was tachypneic and hypoxic. Was hypotensive. Imaging was reported as pulmonary edema, 500 cc of fluid were given without improvement in blood pressure so Levophed was started peripherally. Admission labs showed lymphopenia with a WBC of 1.4 with neutropenia, hemoglobin 10.5, platelet 324, sodium 136, potassium 3.2, bicarb 15, anion gap of 17, creatinine 1.46, BUN 25, glucose 139, lactic acid 4.8, troponin 1044 which increased to 1267, procalcitonin 6.06. ABG showed metabolic acidosis and respiratory compensation with a pH of 7.33 and a pCO2 of 25. Viral BioFire was negative. Cultures were obtained. Critical care and cardiology were consulted. The patient underwent CT imaging, I reviewed her films, there is no evidence of PE, small bilateral pleural effusions are appreciated, dependent atelectasis with some mild infiltrates, GGO's and nodular infiltrates in the left upper/lingula and GGO/opacification in the right upper lobe. An echocardiogram was also obtained which showed concentric LVH with an EF of 40 to 45%, septal motion consistent with conduction abnormality and mild global hypokinesis. Normal RV size and function. Due to concern for sepsis the patient was administered additional IV fluids to complete 30 cc/kg in setting of sepsis. Broad-spectrum antibiotics were initiated. Elevated troponins were likely due to demand ischemia and the patient was not heparinized. On examined the patient in the emergency department she is tachypneic. Fighting her BiPAP mask. Blood pressure is low, she is on Levophed. IV fluids are bolusing. Cardiology was at bedside, they performed the echo just after I left the room and the patient did not tolerate lying flat and became very hypoxic and agitated. Family was in the room, her son who is the MPOA as well as her [id number] are present. The patient is DNR/DNI, she would not want any form of life support and would not want dialysis. The decision was made to continue with Levophed initially and she was transferred to the medical ICU. Allergies Allergy/AdvReac Type Severity Reaction Status Date / Time gentamicin Allergy Unknown Rash Verified 01/03/24 16:27 Macrolide Antibiotics Allergy Unknown Rash Unverified 01/03/24 16:27 Penicillins Allergy Unknown Rash Verified 01/03/24 16:27 Sulfa (Sulfonamide Allergy Unknown Rash Verified 01/03/24 16:27 Antibiotics) telithromycin Allergy Unknown Rash - All Unverified 01/03/24 16:27 Ketolides Home Medications Medication Instructions Recorded Confirmed Type lisinopril 2.5 mg tablet 2.5 mg PO DAILY 11/06/20 11/30/24 History nitroglycerin 0.4 mg sublingual 0.4 mg sublingual UD PRN Chest Pain 11/06/20 11/30/24 History tablet (Nitrostat) pantoprazole 40 mg tablet,delayed 40 mg PO QAM 11/06/20 11/30/24 History release metoprolol succinate 25 mg 25 mg PO DAILY 01/03/24 11/30/24 History tablet,extended release 24 hr mirtazapine 15 mg tablet 15 mg PO HS 01/03/24 11/30/24 History lidocaine-prilocaine 2.5 %-2.5 % 1 applic topical ONCE PRN PORT 11/30/24 11/30/24 History topical cream DRESSING loratadine 10 mg tablet 10 mg PO DAILY PRN allergies 11/30/24 11/30/24 History nystatin 100,000 unit/mL oral 5 ml PO QID 11/30/24 11/30/24 History suspension olanzapine 5 mg tablet 5 mg PO HS 11/30/24 11/30/24 History ondansetron 8 mg disintegrating 8 mg PO Q8H PRN Nausea 11/30/24 11/30/24 History tablet oxycodone 5 mg tablet 5 mg PO Q8H PRN Pain 11/30/24 11/30/24 History Patient History Medical History (Updated 11/30/24 @ 13:32 by Yvonne Shi MD) NIELSEN (dyspnea on exertion) Chest pain at rest Chest pain Heart disease Diabetes Family History Other Diabetes Social History Smoking Status: Never smoker Second Hand Exposure: No; Do You Dip or Chew Tobacco: No; Tobacco Cessation Education Requested by Patient: No Hx Alcohol Use: No Hx Substance Use: No Preferred Language: Mongolian Communication Ability: Impaired Senior Java Ui Developer Required: No Beliefs That Will Affect Care: Mormonism Current Living Situation: Family Other Information That Helps Us Care for You: No Feels Safe at Home: Yes Safety Concerns: Feels Safe At This Time Assistive Devices: BiPap Review of Systems Review of Systems: Limited due to respiratory failure. Denies abdominal pain. Denies chest pain. Endorses shortness of breath. Physical Exam Physical Exam: Physical examination: General: Elderly female, appears uncomfortable and in acute respiratory distress. HEENT: Normocephalic, atraumatic. Extraocular movements intact. Sclera are nonicteric. No JVD appreciated. Skin: Warm and dry. Cardiovascular: Tachycardia, no murmurs. No pitting edema of lower extremities. Lungs: Coarse breath sounds, tachypneic, on BiPAP. No wheezing appreciated. Insignificant respiratory distress. Abdomen: Nondistended, nontender to palpation. Musculoskeletal: Normal muscle mass and tone. No gross joint deformity abnormalities. No effusions appreciated. Neurologic: Awake and alert, oriented to acute situation. Moving all extremities. Psychiatric: Anxious and agitated with BiPAP in place. Results & Data Results & Data Vital Signs (Past 12 Hours) Vital Signs Temp Pulse Pulse Resp BP BP Pulse Ox 11/30/24 10:18 36.6 C 118 H 30 H 102/66 90 11/30/24 10:00 11/30/24 09:47 11/30/24 09:21 82/67 L 11/30/24 09:21 124 H 25 H 93 11/30/24 09:17 122 H 39 H 97 11/30/24 09:16 92/66 L 11/30/24 09:12 117 H 22 91 11/30/24 09:11 134/100 11/30/24 09:07 47/35 L 11/30/24 09:00 77 35 H 90/35 L 95 11/30/24 08:50 88/55 L 11/30/24 08:48 111 H 25 H 95 11/30/24 08:45 120 H 29 H 132/107 H 95 11/30/24 08:42 119 H 36 H 97 11/30/24 08:41 99/54 L 11/30/24 08:38 120 H 30 H 96 11/30/24 08:27 116 H 34 H 100 11/30/24 08:26 127/93 11/30/24 08:21 118 H 29 H 97 11/30/24 08:20 116/91 11/30/24 08:10 78/50 L 11/30/24 08:08 120 H 45 H 97 11/30/24 08:01 82/64 L 11/30/24 07:51 115 H 34 H 98 11/30/24 07:50 74/60 L 11/30/24 07:50 74/60 L 11/30/24 07:49 101/71 11/30/24 07:48 107 H 29 H 99 11/30/24 07:44 89/64 L 11/30/24 07:42 112 H 26 H 99 11/30/24 07:36 109 H 41 H 74/50 L 99 11/30/24 07:34 79/53 L 11/30/24 07:24 117 H 30 H 70/48 L 96 11/30/24 06:46 111 H 32 H 91/54 L 96 11/30/24 06:39 112 H 28 H 91/42 L 93 11/30/24 06:33 113 H 32 H 94 11/30/24 06:31 111 H 34 H 75/61 L 94 11/30/24 06:25 115 H 96 11/30/24 06:23 115 H 34 H 121/70 11/30/24 06:15 117 H 90/54 L 97 11/30/24 06:15 91 11/30/24 05:37 123 H 37 H 90/64 L 98 11/30/24 05:16 127 H 11/30/24 04:59 36.6 C 128 H 20 88/62 L 92 O2 Del Method O2 Flow Rate FiO2 11/30/24 10:18 BiPAP 11/30/24 10:00 BiPAP 0.3 11/30/24 09:47 BiPAP 11/30/24 09:21 11/30/24 09:21 BiPAP 11/30/24 09:17 30 11/30/24 09:16 11/30/24 09:12 High Flow Nasal Cannula 11/30/24 09:11 11/30/24 09:07 11/30/24 09:00 High Flow Nasal Cannula 11/30/24 08:50 11/30/24 08:48 High Flow Nasal Cannula 11/30/24 08:45 High Flow Nasal Cannula 11/30/24 08:42 High Flow Nasal Cannula 11/30/24 08:41 11/30/24 08:38 High Flow Nasal Cannula 60 30 11/30/24 08:27 BiPAP 11/30/24 08:26 11/30/24 08:21 CPAP 11/30/24 08:20 11/30/24 08:10 11/30/24 08:08 40 11/30/24 08:01 11/30/24 07:51 Nasal Cannula 3 11/30/24 07:50 11/30/24 07:50 11/30/24 07:49 11/30/24 07:48 Nasal Cannula 3 11/30/24 07:44 11/30/24 07:42 Nasal Cannula 3 11/30/24 07:36 11/30/24 07:34 11/30/24 07:24 Nasal Cannula 3 11/30/24 06:46 Nasal Cannula 2 11/30/24 06:39 Nasal Cannula 3 11/30/24 06:33 Nasal Cannula 2 11/30/24 06:31 Nasal Cannula 2 11/30/24 06:25 Nasal Cannula 2 11/30/24 06:23 11/30/24 06:15 Nasal Cannula 2 11/30/24 06:15 Nasal Cannula 0 11/30/24 05:37 Nasal Cannula 2 11/30/24 05:16 11/30/24 04:59 Room Air Coding Level of Care Code 33453 CRITICAL CARE 1ST 30-74M Diagnoses Acute hypoxic respiratory failure J96.01 Septic shock A41.9; R65.21 PHILLY (acute kidney injury) N17.9 Lactic acid acidosis E87.20 Neutropenia D70.9 Elevated troponin R79.89
--- NOTE | 2024-11-30 14:08 | Advance Care Plan Prog Note ---
Advanced Care Planning Note Date of Discussion November 30, 2024 ACP Discussion Diagnoses requiring ACP discussion: septic shock 2/2 pneumonia, underlying metastatic breast cancer A [id number] discussion with the patient, patient's son/POA regarding the patient's advanced care planning took place during this hospitalization on the above date. The discussion included the explanation and discussion of advance directives and associated forms/documents, as well as the patient's current code status. We also discussed at length the patient's medical conditions (both acute and chronic), general prognosis, treatment options, and goals of care. The following summarizes the discussion: Patient with metastatic breast cancer on chemotherapy presenting with septic shock secondary to pneumonia. In ED, patient requiring BiPAP due to severe shortness, IV antibiotics, IV fluids and IV Levophed. Discussed goals of care with patient, who is alert and oriented. Clarified that she is a DNR/DNI but wanting to continue IV pressors, antibiotics and IV fluids in the short-term to see if her condition would improve. Also discussed this with son/POA at bedside. A few hours later while in ICU with condition worsening, community health outreach worker readdressed goals of care with patient and son, who at that time made the decision to transition to comfort measures only. I called the son to confirm these wishes and comfort care orders were placed. Status Resuscitation Status DNR/DNI No Resuscitation Total Time I spent a total of 20 minutes was spent on this discussion, including counseling, answering questions, and completing, if any, pertinent advanced care planning forms/documents.
--- NOTE | 2024-11-30 14:19 | Discharge Summary ---
Discharge Summary Date of Service November 30, 2024 Principal Dx & Hospital Course #1 = Principal Diagnosis (1) Septic shock: (2) Demand ischemia: (3) Fever and neutropenia: (4) Metastatic malignant neoplasm to breast: (5) Pneumonia: (6) DM (diabetes mellitus), type 2: Plan This is an 84yo F with PMH of invasive breast cancer with multiple bone and liver mets on chemo, DM II, hypothyroidism, LBBB, HTN, CKD III, Raynoud's di sease, mood disorder and other medical problems listed below who presents with SOB x [address]. [address] Chambers for cancer treatment and underwent chemo regimen of Keytruda, Carboplatin and Abraxane 10 days ago. Returned to [facility] 3 days ago for further treatment but it was postponed due to poor tolerance of tx with N/V, limited PO intake as well as low grade fever of 99 F that day. Was given 1L NSS in clinic as well as Aloxi 0.25 mg IV today for significant chemotherapy induced nausea. History obtained from patient, chart review and family at bedside. Patient has had progressive SOB since the weekend as well as productive cough and increased fatigue and was brought to ED for further evaluation. In ED, patient was persistently hypotensive, requiring fluid resuscitation as well as Levophed peripherally due to SBP in the 70s-80s. Was started on broad- spectrum IV antibiotics with cefepime and doxycycline for underlying pneumonia. Discussed case with senior oracle adf developer, who accepted patient for further management in the ICU. Also started on CPAP and then transition to BiPAP due to marked respiratory distress. Troponin initially elevated to 1,000 without significant chest pain. Discussed with apartment leasing consultant on-call Dr. Cullen, who felt troponin elevation was due to demand ischemia in setting of severe illness. Did develop some chest tightness during period of respiratory distress but due to chronic left bundle branch block, EKG ordered was unhelpful. Stat echocardiogram obtained, revealing mildly reduced EF of 45% with dyssynergy septal contractility per report. Per discussion with patient and son/POA while in ED, confirmed DNR/DNI status but still wanted to trial IV antibiotics, Lopressor and IV hydration to see if there would be improvement. Upon arrival to ICU, patient remained on Levophed and bipap, family and patient again discussed goals with senior oracle adf developer Dr. Shi and they decided to pursue comfort measures only. Had further discussion over the phone son/POA at this time. Transitioned to VIDEO CAMERA OPERATOR and norepinephrine was discontinued. The patient was placed on nasal cannula and anxiety/pain medications were administered. Not long after comfort measures initiated, notified by RN that patient had peacefully with family at bedside. Patient was examined - no response to stimuli, pupils fixed and dilated, and no breath or heart sounds on a uscultation. Pronounced at 12:51pm. Patient seen in collaboration with Dr. Mendez. Please see addendum. Notes For Next Care Provider Medication Changes From Visit n/a Admission HPI Per Admitting Provider This is an 84yo F with PMH of invasive breast cancer with multiple bone and liver mets on chemo, DM II, hypothyroidism, LBBB, HTN, CKD III, Raynoud's disease, mood disorder and other medical problems listed below who presents with SOB x [address] Chambers for cancer treatment and underwent chemo regimen of Keytruda, Carboplatin and Abraxane 10 days ago. Returned to [facility] onc 3 days ago for further treatment but it was postponed due to poor tolerance of tx with N/V, limited PO intake as well as low grade fever of 99 F that day. Was given 1L NSS in clinic as well as Aloxi 0.25 mg IV today for significant chemotherapy induced nausea. History obtained from patient, chart review and family at bedside. Patient has had progressive SOB since the weekend as well as productive cough and increased fatigue. Patient continues to feel weak and SOB in ED. Did develop some chest tightness that improved once CPAP placed. No chills, lightheadedness, palpitations, N/V, abd pain, dysuria, diarrhea. Bolus IV fluids, started on cefepime and doxy with blood cx pending for sepsis. Levophed started in peripheral line due to hypotension. Discussed with Dr. Shi and will be admitted to ICU for further management. Echo ordered due to elevated trop and CP, being driven by acute illness -discussed with Dr. Cullen. Per discussion with patient, confirmed DNR/DNI status. Does want IV fluids, antibiotics, bipap and IV pressors in short term. Long discussion with son, aware of severity of condition. Admission Exam Per Admitting Provider General Appearance: WD/WN, vitals as above, acutely ill, frail, tachypneic Head: normocephalic, atraumatic Eyes: normal inspection, PERRL ENT: external ear and nose normal Neck: normal visual inspection Respiratory: +increased respiratory effort, bibasilar rales. + accessory muscle use Cardiovascular: tachycardic rate, normal peripheral pulses, no BLE edema Chest: + port Abdomen/GI: normal bowel sounds, soft, nontender Extremities/Musculoskeletal: + LUE lymphedema Neurologic: PERRL, EOMI, accommodation nl, no face palsy, no dysarthria, CN's II-XI intact bilaterally and moves all extremities Psychiatric: A+Ox3, euthymic affect Skin: no rashes, normal color, cool extremities Updated Medication List Medication Instructions Recorded Confirmed Type lisinopril 2.5 mg tablet 2.5 mg PO DAILY 11/06/20 11/30/24 History nitroglycerin 0.4 mg sublingual 0.4 mg sublingual UD PRN Chest Pain 11/06/20 11/30/24 History tablet (Nitrostat) pantoprazole 40 mg tablet,delayed 40 mg PO QAM 11/06/20 11/30/24 History release metoprolol succinate 25 mg 25 mg PO DAILY 01/03/24 11/30/24 History tablet,extended release 24 hr mirtazapine 15 mg tablet 15 mg PO HS 01/03/24 11/30/24 History lidocaine-prilocaine 2.5 %-2.5 % 1 applic topical ONCE PRN PORT 11/30/24 11/30/24 History topical cream DRESSING loratadine 10 mg tablet 10 mg PO DAILY PRN allergies 11/30/24 11/30/24 History nystatin 100,000 unit/mL oral 5 ml PO QID 11/30/24 11/30/24 History suspension olanzapine 5 mg tablet 5 mg PO HS 11/30/24 11/30/24 History ondansetron 8 mg disintegrating 8 mg PO Q8H PRN Nausea 11/30/24 11/30/24 History tablet oxycodone 5 mg tablet 5 mg PO Q8H PRN Pain 11/30/24 11/30/24 History Hospital Stay Data Consultations 11/30/24 07:17 Consult Test Clerk Routine 11/30/24 07:25 Consult Cardiology Routine ED Decision to Admit Stat Diagnostic Imagining Performed 11/30/24 05:23 CT angio chest PE protocol Stat Total Time Total Time Spent Total Time Spent (In Minutes): 35 Supervising Physician Co-Signing Physician Notes Acute respiratory failure with hypoxia Septic shock Lactic acidosis Acute kidney injury Multifocal pneumonia troponin elevation likely demand ischemia Neutropenia Immunocompromise state Metastatic invasive breast cancer Patient transition to comfort measures only as stated by patient and patient's family. Patient while on comfort measures.
[2024-11-30 14:29] VITALS: BP 62/33; PULSE 92; RESP 25; O2SAT 92
[2024-11-30] MEDS ORDERED: CEFEPIME 1000MG 1,000 MG/10 ML SYR IV SCH (20:00)
[2024-11-30] MEDS ORDERED: DOXYCYCLINE HYCLATE 100 MG in DEXTROSE 5% MINI-B 100 ML IV SCH (20:00)
== END 2024-11-30 14:37 | disposition expired | DRG 871 ==
LOC: ED 04:55 → 1E 07:57